=== PATIENT | male | born 1935 | race Caucasian/White ===

== ENCOUNTER → 2017-03-04 | Outpatient (CLI) | payer MEDICARE ==
--- NOTE | 2017-03-04 14:09 | NM ---
EXAMINATION TYPE: NM bone scan whole body DATE OF EXAM: 03/04/2017 COMPARISON: CT lumbar spine February 22, 2017 HISTORY: Lumbar region spondylolisthesis, spinal stenosis, scoliosis, and skin paresthesia all per or svetlana Delayed whole-body scanning was performed following the injection of 25.3 mCi Tc 99m MDP. Images acq uired 3 hours post injection. Whole body images as well as spot images of the lumbar spine in multipl e projections are acquired. FINDINGS: There is horizontal increased uptake at L3 vertebra corresponds to the mild to moderate compression t ype fracture. Osseous structures are diffusely demineralized which makes evaluation for acute fractur e suboptimal on CT. Nuclear medicine findings are suggestive of acute or subacute fracture at this le tramaine. No additional areas of suspicious radiotracer uptake are identified. Normal excretion in bladder is p resent. Lucency from bilateral total knee replacements is noted. IMPRESSION: As above
== END | disposition home or self-care (01) ==
LOC: RADNMMAIN 10:04
PROVIDERS: ATTEND Physical Medicine & Rehabilitation
DX: M80.88XA Other osteoporosis with current pathological fracture, vertebra(e), initial encounter for fracture (principal); M41.26 Other idiopathic scoliosis, lumbar region; R20.2 Paresthesia of skin; Z96.653 Presence of artificial knee joint, bilateral; Z95.5 Presence of coronary angioplasty implant and graft; Z79.01 Long term (current) use of anticoagulants
CPT/HCPCS: 78306; A9503

== ENCOUNTER 2017-04-01 08:49 | Inpatient (IN) | payer MEDICARE ==
[2017-04-01] MEDS ORDERED: SODIUM CHLORIDE 0.9% 1,000 ML IV STA ×2 (09:11→11:21)
--- NOTE | 2017-04-01 09:16 | ED ---
General Adult HPI - General Chief complaint: Fall Stated complaint: Fall Time Seen by Provider: 04/01/17 08:57 Source: patient, family, EMS, RN notes reviewed Mode of arrival: EMS Limitations: no limitations - History of Present Illness Initial comments: Patient is a pleasant 82-year-old male presenting to the emergency department after a fall. Incident occurred around 4 AM when patient got up to use the bathroom. Patient states he lost his balance and fell. Patient denies any injury. Patient denies any head injury or loss of consciousness. Patient states he does have chronic back problems and therefore was unable to get up off of the floor. Patient states he does have back discomfort however this is chronic and unchanged. Patient has been considering back surgery. Patient denies any specific area of weakness. Patient states he feels fine at this time. No dizziness or spinning type sensation. No confusion. No weakness. is present and confirms history. - Related Data Home Medications Medication Instructions Recorded Confirmed Allopurinol [Zyloprim] 300 mg PO DAILY 08/20/13 04/01/17 Cholecalciferol [Vitamin D3] 1,000 unit PO DAILY 08/20/13 04/01/17 Finasteride [Proscar] 5 mg PO DAILY 08/20/13 04/01/17 Gluc HCl/Jt/Mv/Min Aa/Hb 162 1 tab PO BID 08/20/13 04/01/17 [Glucosamine-Chondroitin Caplet] Multivitamin/Iron/Folic Acid 1 tab PO DAILY 08/20/13 04/01/17 [Centrum Complete Multivit Tab] Rosuvastatin Calcium [Crestor] 20 mg PO DAILY 08/20/13 04/01/17 Terazosin [Hytrin] 5 mg PO HS 08/20/13 04/01/17 Apixaban [Eliquis] 2.5 mg PO BID 10/23/13 04/01/17 HYDROcodone/APAP 7.5-325MG [[place] 1 tab PO QID PRN 04/01/17 04/01/17 7.5-325] Metoprolol Tartrate [Lopressor] 12.5 mg PO BID 04/01/17 04/01/17 [place]-3 Fatty Acids/Fish Oil [Fish 1 cap PO DAILY 04/01/17 04/01/17 Oil 1,000 mg Softgel] Vitamin B-1 250mg 250 mg PO DAILY 04/01/17 04/01/17 amLODIPine [Norvasc] 5 mg PO DAILY 04/01/17 04/01/17 cloNIDine HCL [Catapres] 0.1 mg PO BID 04/01/17 04/01/17 traMADol HCL [Ultram] 50 mg PO BID PRN 04/01/17 04/01/17 Allergies Allergy/AdvReac Type Severity Reaction Status Date / Time Sulfa (Sulfonamide Allergy Swelling Verified 10/23/13 08:31 Antibiotics) Review of Systems ROS Statement: Those systems with pertinent positive or pertinent negative responses have been documented in the HPI. ROS Other: All systems not noted in ROS Statement are negative. Constitutional: Denies: fever Eyes: Denies: eye pain ENT: Denies: ear pain Respiratory: Denies: cough Cardiovascular: Denies: chest pain Endocrine: Denies: fatigue Gastrointestinal: Denies: abdominal pain Genitourinary: Denies: dysuria Musculoskeletal: Reports: back pain (Chronic and unchanged) Skin: Denies: rash Neurological: Denies: headache Past Medical History Past Medical History: Hyperlipidemia, Hypertension, Osteoarthritis (OA), Prostate Disorder Additional Past Medical History / Comment(s): varicose veins, hs gout, enlarged prostate History of Any Multi-Drug Resistant Organisms: None Reported Past Surgical History: Heart Catheterization With Stent, Hernia Repair, Joint Replacement Additional Past Surgical History / Comment(s): angioplasty x 4, austen cataracts, detached retina, austen knee replacement and rt hip replacement Past Anesthesia/Blood Transfusion Reactions: Motion Sickness Date of Last Stent Placement:: 2011 Past Psychological History: No Psychological Hx Reported Smoking Status: Former smoker General Exam Limitations: no limitations General appearance: alert, in no apparent distress Head exam: Present: atraumatic Eye exam: Present: normal appearance, PERRL, EOMI. Absent: nystagmus ENT exam: Present: normal oropharynx Neck exam: Present: normal inspection. Absent: tenderness Respiratory exam: Present: normal lung sounds bilaterally Cardiovascular Exam: Present: regular rate, irregular rhythm Expanded Peripheral pulses: 2+: Radial (R), Radial (L), Dorsalis Pedis (R), Dorsalis Pedis (L) GI/Abdominal exam: Present: soft. Absent: tenderness, pulsatile mass Extremities exam: Present: normal inspection, full ROM. Absent: tenderness Back exam: Present: normal inspection. Absent: tenderness, vertebral tenderness Neurological exam: Present: alert, oriented X3, CN II-XII intact. Absent: motor sensory deficit Expanded Speech: Present: fluid speech Cranial nerves: EOM's Intact: Normal Sensory exam: Upper Extremity Light Touch: Normal, Lower Extremity Light Touch: Normal Motor strength exam: RUE: 5, LUE: 5, RLE: 5, LLE: 5 Eye Response: (4) open spontaneously Motor Response: (6) obeys commands Verbal Response: (5) oriented Psychiatric exam: Present: normal affect, normal mood Skin exam: Present: normal color Course Vital Signs 04/01/17 04/01/17 08:51 09:57 Temperature 96.9 F L Pulse Rate 91 85 Respiratory 16 16 Rate Blood Pressure 136/65 161/87 O2 Sat by Pulse 94 L 95 Oximetry - Reevaluation(s) Reevaluation #1: 04/01/17 11:21 Patient reevaluated. Patient and family updated. Case was discussed in detail with practitioner Erica, who will admit for Dr. Glaser, covering for Dr. horvath, who admits for Dr. Sandoval. Case also discussed in detail with cardiology, Dr. Moreno. He agrees no heparin at this time. Case also discussed with practitioner Tomeka with Dr. Tobin. EKG Findings - EKG Comments: EKG Findings:: A. fib with rate of 90. QRS 162. QT 544. QTC 665. Normal axis. LVH. No acute ST change. Medical Decision Making - Lab Data Result diagrams: 04/01/17 09:07 04/01/17 09:07 Lab Results 04/01/17 04/01/17 04/01/17 Range/Units 09:07 09:07 09:07 WBC 14.4 H (3.8-10.6) k/uL RBC 2.76 L (4.30-5.90) m/uL Hgb 9.8 L (13.0-17.5) gm/dL Hct 29.5 L (39.0-53.0) % MCV 107.1 H (80.0-100.0) fL MCH 35.7 H (25.0-35.0) pg MCHC 33.3 (31.0-37.0) g/dL RDW 15.8 H (11.5-15.5) % Plt Count 303 (150-450) k/uL Neutrophils % 89 % Lymphocytes % 5 % Monocytes % 5 % Eosinophils % 0 % Basophils % 0 % Neutrophils # 12.9 H (1.3-7.7) k/uL Lymphocytes # 0.7 L (1.0-4.8) k/uL Monocytes # 0.7 (0-1.0) k/uL Eosinophils # 0.0 (0-0.7) k/uL Basophils # 0.0 (0-0.2) k/uL Poikilocytosis Slight Macrocytosis Moderate PT (9.0-12.0) sec INR (<1.2) APTT (22.0-30.0) sec Sodium 139 (137-145) mmol/L Potassium 2.2 L* (3.5-5.1) mmol/L Chloride 90 L (98-107) mmol/L Carbon Dioxide 30 (22-30) mmol/L Anion Gap 19 mmol/L BUN 36 H (9-20) mg/dL Creatinine 3.00 H (0.66-1.25) mg/dL Est GFR (MDRD) Af Amer 24 (>60 ml/min/1.73 sqM) Est GFR (MDRD) Non-Af 20 (>60 ml/min/1.73 sqM) Glucose 130 H (74-99) mg/dL Calcium 20.3 H* (8.4-10.2) mg/dL Magnesium 1.8 (1.6-2.3) mg/dL Total Bilirubin 0.9 (0.2-1.3) mg/dL AST 143 H (17-59) U/L ALT 20 L (21-72) U/L Alkaline Phosphatase 83 (38-126) U/L Total Creatine Kinase 4399 H (55-170) U/L CK-MB (CK-2) 8.7 H* (0.0-2.4) ng/mL CK-MB (CK-2) Rel Index Troponin I 0.247 H* (0.000-0.034) ng/mL Total Protein 10.7 H (6.3-8.2) g/dL Albumin 4.1 (3.5-5.0) g/dL TSH 0.707 (0.465-4.680) mIU/L Free T4 1.28 (0.78-2.19) ng/dL Free T3 pg/mL 2.8 (2.8-5.3) pg/ml 04/01/17 Range/Units 09:07 WBC (3.8-10.6) k/uL RBC (4.30-5.90) m/uL Hgb (13.0-17.5) gm/dL Hct (39.0-53.0) % MCV (80.0-100.0) fL MCH (25.0-35.0) pg MCHC (31.0-37.0) g/dL RDW (11.5-15.5) % Plt Count (150-450) k/uL Neutrophils % % Lymphocytes % % Monocytes % % Eosinophils % % Basophils % % Neutrophils # (1.3-7.7) k/uL Lymphocytes # (1.0-4.8) k/uL Monocytes # (0-1.0) k/uL Eosinophils # (0-0.7) k/uL Basophils # (0-0.2) k/uL Poikilocytosis Macrocytosis PT 11.5 (9.0-12.0) sec INR 1.2 H (<1.2) APTT >200.0 H* (22.0-30.0) sec Sodium (137-145) mmol/L Potassium (3.5-5.1) mmol/L Chloride (98-107) mmol/L Carbon Dioxide (22-30) mmol/L Anion Gap mmol/L BUN (9-20) mg/dL Creatinine (0.66-1.25) mg/dL Est GFR (MDRD) Af Amer (>60 ml/min/1.73 sqM) Est GFR (MDRD) Non-Af (>60 ml/min/1.73 sqM) Glucose (74-99) mg/dL Calcium (8.4-10.2) mg/dL Magnesium (1.6-2.3) mg/dL Total Bilirubin (0.2-1.3) mg/dL AST (17-59) U/L ALT (21-72) U/L Alkaline Phosphatase (38-126) U/L Total Creatine Kinase (55-170) U/L CK-MB (CK-2) (0.0-2.4) ng/mL CK-MB (CK-2) Rel Index Troponin I (0.000-0.034) ng/mL Total Protein (6.3-8.2) g/dL Albumin (3.5-5.0) g/dL TSH (0.465-4.680) mIU/L Free T4 (0.78-2.19) ng/dL Free T3 pg/mL (2.8-5.3) pg/ml Critical Care Time Critical Care Time: Yes Total Critical Care Time: 36 Disposition Clinical Impression: Hypercalcemia, Hypokalemia Narrative: Prolonged QTC Disposition: ADMITTED IP TO THIS HOSP Condition: Critical Referrals: Elijah Sandoval MD [Primary Care Provider] - 1-2 days Decision Time: 11:23
[2017-04-01 09:31] LABS: Basophils % (A) 0 %; Eosinophils % (A) 0 %; HCT 29.5 % (39.0-53.0); HGB 9.8 gm/dL (13.0-17.5); Lymphocytes # (A) 0.7 k/uL (1.0-4.8); Lymphocytes % (A) 5 %; MCH 35.7 pg (25.0-35.0); MCHC 33.3 g/dL (31.0-37.0); MCV 107.1 fL (80.0-100.0); Macrocytosis Moderate; Mean Platelet Volume 7.3; Monocytes # (A) 0.7 k/uL (0-1.0); Monocytes % (A) 5 %; Neutrophils # (A) 12.9 k/uL (1.3-7.7); Neutrophils % (A) 89 %; Platelet Count 303 k/uL (150-450); Poikilocytosis Slight; RBC 2.76 m/uL (4.30-5.90); RDW 15.8 % (11.5-15.5); WBC 14.4 k/uL (3.8-10.6)
[2017-04-01 09:44] LABS: INR 1.2 (<1.2); Prothrombin Time 11.5 sec (9.0-12.0)
--- NOTE | 2017-04-01 09:55 | XR ---
EXAMINATION TYPE: XR pelvis AP view DATE OF EXAM: 04/01/2017 CLINICAL HISTORY: Pelvic and left hip pain after fall injury. TECHNIQUE: A single AP view of the pelvis is obtained. COMPARISON: None. FINDINGS: Osseous structures are demineralized which is noted to lower radiographic sensitivity. The re is no acute fracture/dislocation clearly evident in the pelvis. The sacroiliac joints are felt wi thin normal limits. Metallic artifact right hip arthroplasty is satisfactorily seated. Advanced degen erative change left hip joint with axial joint space loss and head neck junction mild to moderate spu rring is seen. Left groin vascular calcification is noted. IMPRESSION: There is no acute fracture or dislocation clearly identified in the pelvis.
--- NOTE | 2017-04-01 09:56 | XR ---
EXAMINATION TYPE: XR chest 1V DATE OF EXAM: 04/01/2017 COMPARISON: Chest x-ray April 16, 2011. HISTORY: Pain. From fall TECHNIQUE: Single frontal view of the chest is obtained. FINDINGS: There is chronic parenchymal change without with patchy bibasilar atelectasis and/or infil trate. There is no pleural effusion or pneumothorax seen bilaterally. Diminished inspiration is seen on current study. The cardiac silhouette size is enlarged with atherosclerotic aorta. The osseous structures are demineralized. Old left clavicular fracture is noted. IMPRESSION: Chronic parenchymal change and cardiomegaly with patchy bibasilar atelectasis and/or inf iltrate felt present. Diminished inspiration is noted.
--- NOTE | 2017-04-01 10:01 | CT ---
EXAMINATION TYPE: CT brain wo con DATE OF EXAM: 04/01/2017 COMPARISON: NONE HISTORY: fall, disorientation CT DLP: 1207 mGycm Automated exposure control for dose reduction was used. TECHNIQUE: Standard unenhanced CT brain was obtained. FINDINGS: There is no acute intracranial hemorrhage or midline shift identified. There is diffuse v entricular and sulcal prominence that are proportional. There a few areas of low-attenuation in the p eriventricular white matter most consistent with chronic small vessel ischemic change. The globes ar e intact. Scant left maxillary and ethmoidal mucosal thickening is seen. Remainder the paranasal sinu ses are well aerated. Mastoid air cells and middle air cavities are also well aerated. Atherosclerosi s is seen of the intracranial vasculature. IMPRESSION: 1. No acute intracranial hemorrhage or midline shift. 2. Ventricular prominence likely relates to diffuse age-related cerebral atrophy, however normal pres sure hydrocephalus should also be considered. 3. Nonspecific white matter change most commonly related to sequela of microangiopathy, mild burden.
[2017-04-01 10:02] LABS: Albumin 4.1 g/dL (3.5-5.0); Magnesium 1.8 mg/dL (1.6-2.3); Total Bilirubin 0.9 mg/dL (0.2-1.3); Total Protein 10.7 g/dL (6.3-8.2)
[2017-04-01 10:19] LABS: T4, Free (Free Thyroxine) 1.28 ng/dL (0.78-2.19)
[2017-04-01 10:23] LABS: Calcium 20.3 mg/dL (8.4-10.2); Potassium 2.2 mmol/L (3.5-5.1)
[2017-04-01 10:29] LABS: Partial Thromboplastin Time >200.0 sec (22.0-30.0)
[2017-04-01] MEDS ORDERED: POTASSIUM CHLORIDE ER 20 MEQ TAB.ER PO STA (10:30)
[2017-04-01] MEDS ORDERED: POTASSIUM CHLORIDE 20 MEQ in SODIUM CHLORIDE 0.9% 100 ML IVPB STA ×2 (10:30→11:51)
[2017-04-01 10:38] LABS: Creatine Kinase MB 8.7 ng/mL (0.0-2.4); Troponin I 0.247 ng/mL (0.000-0.034)
[2017-04-01] MEDS ORDERED: SODIUM CHLORIDE 0.9% 500 ML IV STA (11:21)
[2017-04-01] MEDS ORDERED: NALOXONE 0.4 MG/ML 1 ML VIAL IV PRN (11:25)
[2017-04-01 12:06] LABS: Magnesium 1.8 mg/dL (1.6-2.3); Phosphorus 2.6 mg/dL (2.5-4.5); Total Bilirubin 0.9 mg/dL (0.2-1.3); Total Protein 10.5 g/dL (6.3-8.2)
[2017-04-01] MEDS ORDERED: amLODIPine 5 MG TAB PO STA (12:07)
[2017-04-01 12:18] LABS: Calcium 20.8 mg/dL (8.4-10.2); Potassium 2.7 mmol/L (3.5-5.1)
[2017-04-01] MEDS ORDERED: cloNIDine 0.3 MG/24HR PATCH 1 PATCH PATCH TRANSDERM SCH (12:30)
[2017-04-01] MEDS: 0.9% NACL WITH KCL 20 MEQ/L 1,000 ML IV SCH ×3 (13:05→23:01)
--- NOTE | 2017-04-01 13:10 | CONS ---
CONSULTATION Mr. Rodas is an 82-year-old gentleman who is seen for cardiac evaluation. The patient is lethargic and history was obtained from the EMS notes as well as patient's . Patient gives a history that he got up to urinate about 4:00 in the morning and then he became dizzy. On the way back, he fell down on the floor. According to , he did not pass out completely but he was not able to get up by himself. When the EMS arrived, the patient's vital signs were stable. His skin color was pale and was breathing normally. The patient's blood pressure was 146/82 mmHg. This patient has a history of chronic atrial fibrillation, history of coronary artery disease and prior history of stent placement. The patient has been followed by Dr. Celestine Curran. HOME MEDICATIONS: Home medications include Zyloprim, vitamin D3, Proscar, Hytrin 5 mg daily, Crestor 20 mg daily, Eliquis 2.5 mg b.i.d., Lopressor 12.5 mg b.i.d., Norvasc 5 mg daily, Catapres 0.1 mg b.i.d. and Ultram. PAST MEDICAL HISTORY: Past medical history includes history of hypertension, hyperlipidemia, prostate disorder, history of coronary artery disease, chronic atrial fibrillation, joint replacement and hernia repair. PHYSICAL EXAMINATION: Physical examination at present reveals 82-year-old gentleman who is slightly lethargic but is alert and awake, oriented in time, place, and person. The patient's blood pressure is 190/80 mmHg, heart rate is 70 per minute. HEAD/ENT examination is negative. Neck is supple. There is no increase in jugular venous pressure. Both the carotid pulses are felt. There is no bruit. Chest is symmetrical. HEART: The PMI is not felt. First and second heart sounds are normal. Lungs are fairly clear to auscultation and percussion. Abdomen is soft. EXTREMITIES: Radial pulses are 2+. EKG shows evidence of atrial fibrillation with significantly prolonged QT interval. The patient's hemoglobin is 9.8. Potassium is 2.2. Calcium is 20.3, ionized calcium is 10.2. The patient's CPK was 4399 and the initial troponin is 0.247. FINAL IMPRESSION: This patient is admitted with a fall. Currently vital signs are stable. Patient has significant abnormalities in the electrolytes with a potassium being 2.2 and the calcium is 20.2. The overall findings are not suggestive of acute coronary syndrome. Patient at present is in atrial fibrillation with a controlled rate. The patient's CAT scan is negative for any intracranial bleed. The patient is admitted to the ICU. His electrolytes as well as calcium will be corrected. Echo and Doppler study will be obtained. VICKIE / DIA: [id number] /
--- NOTE | 2017-04-01 13:46 | ECHOF ---
Referral Reason:syncope MEASUREMENTS -------- HEIGHT: 175.3 cm WEIGHT: 97.5 kg BP: 182/86 RVIDd: 3.3 cm (< 3.3) IVSd: 1.4 cm (0.6 - 1.1) LVIDd: 4.3 cm (3.9 - 5.3) LVPWd: 1.3 cm (0.6 - 1.1) IVSs: 1.8 cm LVIDs: 3.3 cm LVPWs: 1.4 cm LAESV Index (A-L): 57.92 ml/m Ao Diam: 3.3 cm (2.0 - 3.7) AV Cusp: 1.9 cm (1.5 - 2.6) LA Diam: 4.0 cm (2.7 - 3.8) MV E [place]: 0.76 m/s MV DecT: 189 ms MV A [place]: 0.00 m/s MV E/A Ratio: 777.57 RAP: 5.00 mmHg RVSP: 21.05 mmHg FINDINGS -------- Atrial fibrillation. This was a technically good study. The left ventricular size is normal. There is moderate concentric left ventricular hypertrophy. O verall left ventricular systolic function is normal with, an EF between 55 - 60 %. The right ventricle is mildly enlarged. LA is severely dilated >40 ml/m2 RA appears enlarged. Aortic valve is trileaflet and is mildly thickened. There is no evidence of aortic regurgitation. There is no evidence of aortic stenosis. The mitral valve leaflets are mildly thickened. Moderate mitral regurgitation is present. Trace tricuspid regurgitation present. Right ventricular systolic pressure is normal at < 35 mmHg. There is no evidence of pulmonary hypertension. Trace/mild (physiologic) pulmonic regurgitation. The aortic root size is normal. Normal inferior vena cava with normal inspiratory collapse consistent with estimated right atrial pre ssure of 5 mmHg. The pericardium is normal. There is no pericardial effusion. CONCLUSIONS -------- 1. Atrial fibrillation. 2. This was a technically good study. 3. The left ventricular size is normal. 4. There is moderate concentric left ventricular hypertrophy. 5. Overall left ventricular systolic function is normal with, an EF between 55 - 60 %. 6. The right ventricle is mildly enlarged. 7. LA is severely dilated >40 ml/m2 8. RA appears enlarged. 9. Aortic valve is trileaflet and is mildly thickened. 10. The mitral valve leaflets are mildly thickened. 11. Moderate mitral regurgitation is present. 12. Trace tricuspid regurgitation present. 13. Right ventricular systolic pressure is normal at < 35 mmHg. 14. There is no evidence of pulmonary hypertension. 15. Trace/mild (physiologic) pulmonic regurgitation. 16. The aortic root size is normal. 17. There is no pericardial effusion. [employer]: Tristan Ramires RDCS
[2017-04-01 13:53] LABS: Glucose,Whole Blood 125 mg/dL (75-99)
[2017-04-01 14:54] LABS: Amorphous Sediment,Urine Occasional /hpf; Appearance,Urine Clear (Clear); Bacteria,Urine Rare /hpf; Bilirubin,Urine Negative (Negative); Blood,Urine Moderate (Negative); Color,Urine Yellow; Glucose,Urine (UA) Negative (Negative); Hyaline Casts,Urine 4 /lpf (0-2); Ketones,Urine Negative (Negative); Leukocyte Esterase,Urine Trace (Negative); Nitrite,Urine Negative (Negative); PH, Urine 5.5 (5.0-8.0); Protein,Urine Trace (Negative); RBC,Urine 3 /hpf (0-5); Specific Gravity,Urine 1.008 (1.001-1.035); Urobilinogen,Urine <2.0 mg/dL (<2.0); WBC,Urine 8 /hpf (0-5)
[2017-04-01 15:44] LABS: Anisocytosis Slight; Basophils % (A) 0 %; Eosinophils % (A) 0 %; HCT 30.5 % (39.0-53.0); HGB 10.3 gm/dL (13.0-17.5); Lymphocytes # (A) 0.8 k/uL (1.0-4.8); Lymphocytes % (A) 7 %; MCH 36.2 pg (25.0-35.0); MCHC 33.6 g/dL (31.0-37.0); MCV 107.5 fL (80.0-100.0); Macrocytosis Marked; Mean Platelet Volume 7.5; Monocytes # (A) 0.5 k/uL (0-1.0); Monocytes % (A) 5 %; Neutrophils # (A) 9.8 k/uL (1.3-7.7); Neutrophils % (A) 87 %; Platelet Count 282 k/uL (150-450); Poikilocytosis Slight; RBC 2.84 m/uL (4.30-5.90); RDW 16.6 % (11.5-15.5); WBC 11.3 k/uL (3.8-10.6)
[2017-04-01 15:46] LABS: INR 1.3 (<1.2); Prothrombin Time 11.9 sec (9.0-12.0)
[2017-04-01 15:52] LABS: Partial Thromboplastin Time 22.9 sec (22.0-30.0)
[2017-04-01] MEDS ORDERED: SODIUM CHLORIDE 0.9% 250 ML with PAMIDRONATE 60 MG IV ONE ×2 (16:00)
[2017-04-01] MEDS: hydrALAZINE HCL 20 MG/ML 1 ML VIAL IVP PRN ×2 (16:03→19:23)
[2017-04-01] MEDS: POTASSIUM CHLORIDE 20 MEQ in SODIUM CHLORIDE 0.9% 100 ML IVPB SCH ×4 (16:44→23:02)
--- NOTE | 2017-04-01 17:21 | P.CNPUL ---
History of Present Illness Consult date: 04/01/17 Chief complaint: Weakness and fall History of present illness: This is a 82-year-old male patient with known history of coronary artery disease with previous PCI, chronic atrial fibrillation, hypertension and hyperlipidemia, and osteoarthritis, who came into the emergency department very lethargic and weak. Apparently the patient was becoming progressively more weak and dizzy and he had a fall that occurred around 4 AM when the patient was trying to go to the bathroom. Patient states that he lost balance and he fell. He denies having any significant injuries. No head injury. He stated that he has chronic back pain and the back and has essentially been unchanged. The patient was brought into the hospital and he was seen and burst department he was found to have significant abnormalities in his blood work and electrolytes. Specifically the patient was found to be anemic with a hemoglobin of 9.8, the patient was found to have a PTT of 200 knowing that he is on oral anticoagulation with Eliquis, he was found to be hypokalemic with a potassium level of 2.2, he was an acute kidney injury with a creatinine of 3.0, his serum calcium level was 20.3 with an ionized calcium of 10.2 and a phosphorus level of 2.6 and a magnesium 1.8 and an alkaline phosphatase of 84 with a CPK of 4399 and troponin was 0.247. The patient's total serum protein was 10.4 and albumin was 4.0. Note that the patient was being investigated for back pain and had undergone a CAT scan of the lumbosacral spine on 02/22/2017 and he was found to have multi leveled compressive deformities including the greatest at the level of L3 with approximately 50% loss of the mid vertebral body height. There was also compression at the level of L4 and endplates of L2 and superior endplates of L1 and also poses was also present and possibility of underlying lytic lesions were also included and suspected. There is also evidence of spinal canal stenosis at the level of L4-L5. A bone scan that was done on 03/04/2017 showed demineralization that was diffuse without any evidence of an acute or subacute fractures. The [facility] also [facility]. He was given [place] for pain control which made him more confused and lethargic. At this point in time he is on IV fluids. He is receiving 200 mL an hour of normal saline along with potassium replacement. The patient is also on alendronate 60 mg IV. Past Medical History Past Medical History: Atrial Fibrillation, Coronary Artery Disease (CAD), Hyperlipidemia, Hypertension, Osteoarthritis (OA), Prostate Disorder, Vascular Disorder Additional Past Medical History / Comment(s): Chronic low back pain, lumbar vertebrae fracture, recent pain medication change and pt/spouse states he has had increased weakness and decreased appetite since, arthritis mostly in his back, BPH, bilateral leg varicosities, gout, diverticular dx, colon benign polyp , hemorrhoids. History of Any Multi-Drug Resistant Organisms: None Reported Past Surgical History: Heart Catheterization With Stent, Hernia Repair, Joint Replacement Additional Past Surgical History / Comment(s): 1982 PTCA, 2003/2009/2011 PCIs with stents, 2013 cardioversion, [place] cataracts with lens implants, R eye surgery for detached retina, [place] knee replacement and rt hip replacement, R inguinal hernia repair, colonoscopies/benign polypectomy. Past Anesthesia/Blood Transfusion Reactions: Motion Sickness Additional Past Anesthesia/Blood Transfusion Reaction / Comment(s): Pt states he has had blood in past without reaction. Date of Last Stent Placement:: 2011 Smoking Status: Former smoker - Past Family History Father Family Medical History: Myocardial Infarction (PA) Additional Family Medical History / Comment(s): Father of a PA at the age of 72 yrs. Mother Family Medical History: No Reported History Additional Family Medical History / Comment(s): Mother lived to be 84 yrs old. Medications and Allergies Home Medications Medication Instructions Recorded Confirmed Type Allopurinol [Zyloprim] 300 mg PO DAILY 08/20/13 04/01/17 History Cholecalciferol [Vitamin D3] 1,000 unit PO DAILY 08/20/13 04/01/17 History Finasteride [Proscar] 5 mg PO DAILY 08/20/13 04/01/17 History Gluc HCl/Jt/Mv/Min Aa/Hb 162 1 tab PO BID 08/20/13 04/01/17 History [Glucosamine-Chondroitin Caplet] Multivitamin/Iron/Folic Acid 1 tab PO DAILY 08/20/13 04/01/17 History [Centrum Complete Multivit Tab] Rosuvastatin Calcium [Crestor] 20 mg PO DAILY 08/20/13 04/01/17 History Terazosin [Hytrin] 5 mg PO HS 08/20/13 04/01/17 History Apixaban [Eliquis] 2.5 mg PO BID 10/23/13 04/01/17 History HYDROcodone/APAP 7.5-325MG [[place] 1 tab PO QID PRN 04/01/17 04/01/17 History 7.5-325] Metoprolol Tartrate [Lopressor] 12.5 mg PO BID 04/01/17 04/01/17 History Rembrandt-3 Fatty Acids/Fish Oil [Fish 1 cap PO DAILY 04/01/17 04/01/17 History Oil 1,000 mg Softgel] Vitamin B-1 250mg 250 mg PO DAILY 04/01/17 04/01/17 History amLODIPine [Norvasc] 5 mg PO DAILY 04/01/17 04/01/17 History cloNIDine HCL [Catapres] 0.1 mg PO BID 04/01/17 04/01/17 History traMADol HCL [Ultram] 50 mg PO BID PRN 04/01/17 04/01/17 History Allergies Allergy/AdvReac Type Severity Reaction Status Date / Time Sulfa (Sulfonamide Allergy Swelling Verified 10/23/13 08:31 Antibiotics) Physical Exam Vitals: Vital Signs Temp Pulse Resp BP Pulse Ox 04/01/17 15:35 97 04/01/17 15:30 94 191/88 96 04/01/17 15:00 93 193/96 95 04/01/17 14:30 90 172/84 96 04/01/17 14:00 97.6 F 92 183/94 94 L 04/01/17 13:52 98 94 L 04/01/17 13:34 92 16 204/95 95 04/01/17 13:00 96 16 182/86 95 04/01/17 11:00 85 16 178/93 94 L 04/01/17 09:57 85 16 161/87 95 04/01/17 08:51 96.9 F L 91 16 136/65 94 L Intake and Output 04/01/17 04/01/17 04/01/17 06:59 14:59 22:59 Intake Total 120 Output Total 250 Balance -130 Intake: Intake, IV Titration 120 Amount Potassium Chloride 20 meq 120 In Sodium Chloride 0.9% 100 ml @ 50 mls/hr IVPB ONCE STA Rx#:[id number] Output: Urine 250 Other: Weight 97.522 kg Patient Weight 04/02/17 06:59 Weight 97.522 kg Patient is lethargic and confused resting comfortably in bed. He cannot answer simple questions. He moans. He seems to be in moderate degree of pain. Head is atraumatic normocephalic.Head exam was generally normal. There was no scleral icterus or corneal arcus. Mucous membranes were moist.Neck was supple and without jugular venous distension, thyromegaly, or carotid bruits. Carotids were easily palpable bilaterally. There was no adenopathy. Mucous membranes are dry. Lung sounds are diminished bilaterally otherwise they're clear. There is no wheezes overall currently crackles.Cardiac exam revealed the PMI to be normally situated and sized. The rhythm was regular and no extrasystoles were noted during several minutes of auscultation. The first and second heart sounds were normal and physiologic splitting of the second heart sound was noted. There were no murmurs, rubs, clicks, or gallops.Abdominal exam revealed normal bowel sounds. The abdomen was soft, non-tender, and without masses, organomegaly, or appreciable enlargement of the abdominal aorta.Examination of the extremities revealed easily palpable radial, femoral and pedal pulses. There was no cyanosis, clubbing or edema.Examination of the skin revealed no evidence of significant rashes, suspicious appearing nevi or other concerning lesions. Neurologically the patient is confused and he has diminished level of consciousness. He withdraws to painful stimuli. Cranial nerves are intact. Results - Laboratory Findings CBC and BMP: 04/01/17 15:22 04/01/17 11:23 PT/INR, D-dimer PT 11.5 sec (9.0-12.0) 04/01/17 09:07 INR 1.2 (<1.2) H 04/01/17 09:07 Abnormal lab findings: Abnormal Labs 04/01/17 04/01/17 04/01/17 09:07 09:07 09:07 WBC 14.4 H RBC 2.76 L Hgb 9.8 L Hct 29.5 L MCV 107.1 H MCH 35.7 H RDW 15.8 H Neutrophils # 12.9 H Lymphocytes # 0.7 L INR APTT Potassium 2.2 L* Chloride 90 L Carbon Dioxide BUN 36 H Creatinine 3.00 H Glucose 130 H POC Glucose (mg/dL) Calcium 20.3 H* Ionized Calcium Elinor AST 143 H ALT 20 L Total Creatine Kinase 4399 H CK-MB (CK-2) 8.7 H* Troponin I 0.247 H* Total Protein 10.7 H Urine Protein Urine Blood Ur Leukocyte Esterase Urine WBC Amorphous Sediment Urine Bacteria Hyaline Casts 04/01/17 04/01/17 04/01/17 09:07 11:23 11:23 WBC RBC Hgb Hct MCV MCH RDW Neutrophils # Lymphocytes # INR 1.2 H APTT >200.0 H* Potassium 2.7 L* Chloride 92 L Carbon Dioxide 32 H BUN 37 H Creatinine 2.81 H Glucose 126 H POC Glucose (mg/dL) Calcium 20.8 H* Ionized Calcium Elinor 10.2 H* AST 153 H ALT Total Creatine Kinase CK-MB (CK-2) Troponin I Total Protein 10.5 H Urine Protein Urine Blood Ur Leukocyte Esterase Urine WBC Amorphous Sediment Urine Bacteria Hyaline Casts 04/01/17 04/01/17 04/01/17 13:52 14:30 15:22 WBC 11.3 H RBC 2.84 L Hgb 10.3 L Hct 30.5 L MCV 107.5 H MCH 36.2 H RDW 16.6 H Neutrophils # 9.8 H Lymphocytes # 0.8 L INR APTT Potassium Chloride Carbon Dioxide BUN Creatinine Glucose POC Glucose (mg/dL) 125 H Calcium Ionized Calcium Elinor AST ALT Total Creatine Kinase CK-MB (CK-2) Troponin I Total Protein Urine Protein Trace H Urine Blood Moderate H Ur Leukocyte Esterase Trace H Urine WBC 8 H Amorphous Sediment Occasional H Urine Bacteria Rare H Hyaline Casts 4 H - Diagnostic Findings Chest x-ray: image reviewed Assessment and Plan Plan: Assessment 1 acute hypercalcemia with a clinical presentation which is very highly suspicious for multiple myeloma. The patient presents in with hyperproteinemia , acute hypercalcemia, acute kidney failure, compression fracture of the lumbar spine at the level of L3-L4 5 and possibility of some lytic lesions involving the spine. The patient is currently being resuscitated IV fluids and the patient is receiving alendronate. 2 change in mental status secondary to above. The patient presented with severe dehydration and severe electrode disturbance with hypercalcemia and hypokalemia and addition to a mild component of rhabdomyolysis 3 generalized weakness and fall secondary to above 4 acute rhabdomyolysis secondary to above 5 acute hypokalemia 6 compression fracture of the lumbar spine at the level of L3-L4 and L5 along with possibility of lytic lesions and the patient has extensive demineralization of the bones and lumbar spine 7 chronic back pain 8 coronary artery disease 9 chronic atrial fibrillation 10 acute coagulopathy probably related to varicose toxicity. The patient does not have any signs of bleeding 11 acute kidney injury/kidney failure. Rule out myeloma kidney. Rule out prerenal factors secondary to dehydration 12 BPH 13 diverticular disease with benign colonic polyps and hemorrhoids Plan Fluid resuscitation. Continue normal saline at rate of 200 mL an hour. Replace potassium levels. Monitor magnesium levels. Agree with alendronate. Monitor calcium levels and anticipate the levels will improve with fluid resuscitation and alendronate. Meanwhile, we'll send serum protein electrophoresis and immuno pheresis. We'll send urine protein electrophoresis. We'll need an ultrasound the kidneys. May need a skeletal series. Monitor coagulation profile. Monitor mental status which I anticipate to improve with fluid resuscitation and correction of the electrode disturbance. Monitor CPK. He'll be monitored in the intensive care unit. We'll need a hematology oncology consultation. Will need a nephrology consultation. We'll continue to follow.
[2017-04-01] MEDS ORDERED: HYDROcodone/APAP 7.5-325MG 1 EACH TAB PO PRN (18:10)
[2017-04-01] MEDS: traMADol 50 MG TAB PO PRN (18:58)
[2017-04-01 19:55] LABS: Potassium 3.1 mmol/L (3.5-5.1)
--- NOTE | 2017-04-01 20:00 | XR ---
EXAMINATION TYPE: XR bone survey complete, 15 views DATE OF EXAM: 04/01/2017 COMPARISON: Nuclear medicine bone scan 03/04/1970 HISTORY: Assess for multiple myeloma. DESCRIPTION: Imaging was obtained from the vertex of the skull through the level of the elbows and kn ees. There are no focal osteolytic lesions. There are, however, markedly advanced degenerative spine changes at all levels and there is generalized osteopenia diffusely throughout the skeletal system. No acute fracture or malalignment. The L3 vertebral body is mildly compressed compared to the L2 and L4 vertebral bodies, and this corre sponds with the scintigraphic finding at the time of the nuclear medicine bone scan of March 04. IMPRESSION: 1. Generalized osteopenia. 2. Marked degenerative spine changes at all levels. 3. Mild L3 vertebral body compression.
[2017-04-01 20:04] LABS: Calcium 19.2 mg/dL (8.4-10.2)
[2017-04-01] MEDS ORDERED: CALCITONIN INJ 200 UNIT/ML (MDV) VIAL IM ONE (20:30)
[2017-04-01] MEDS: DOXAZOSIN 4 MG TAB PO SCH (20:44)
[2017-04-01] MEDS: METOPROLOL TARTRATE 12.5 MG TAB PO SCH (20:45)
[2017-04-01] MEDS: cloNIDine HCL 0.1 MG TAB PO SCH (20:45)
--- NOTE | 2017-04-01 20:56 | US ---
EXAMINATION TYPE: US kidneys/renal and bladder DATE OF EXAM: 04/01/2017 COMPARISON: NONE CLINICAL HISTORY: PABLO. PABLO, exam done portable in ICU. EXAM MEASUREMENTS: Right Kidney: 14.0 x 6.8 x 5.8 cm Left Kidney: 13.2 x 6.5 x 5.1 cm Right Kidney: slightly lobulated contour, 1.4cm cystic area mid pole, smaller 1.2cm area inferior urmila e and 1.2cm area superior pole Left Kidney: lobulated contour, 2.0 x 2.6 x 2.1cm cystic area mid pole, 1.8 x 2.5 x 1.8cm complex are a inferior pole Bladder: limited visualization, butcher catheter Bilateral Jets seen: no There is no evidence for hydronephrosis. No nephrolithiasis is seen. No masses are identified. The urinary bladder is anechoic. Bilateral ureteral jets are seen. IMPRESSION: No acute process.
--- NOTE | 2017-04-01 21:55 | HP ---
HISTORY AND PHYSICAL DATE OF SERVICE: 04/01/2017 CHIEF COMPLAINT: Fall. HISTORY OF PRESENT ILLNESS: This 82-year-old gentleman with a past medical history of multiple medical problems, including history of atrial fibrillation, CAD, hypertension, hyperlipidemia, DJD , CAD with stent being followed by Dr. Sandoval in the outpatient setting, apparently had a fall in the bathroom at 4:00. The patient did not have any injury. The patient lost his balance and patient was taken to [facility] and admitted for further evaluation and treatment. The patient is confused. Patient had multiple laboratory abnormalities, including severe renal failure with a creatinine of 2.81 and severe hypercalcemia at 20.8. The creatine kinase was 4399. Potassium is 2.7. Patient was admitted for further evaluation and treatment. There is no history of fever, rigors, chills. No history of any headache. No history of any hematochezia or melena at this time. PAST MEDICAL HISTORY: History of atrial fibrillation, CAD, hypertension, hyperlipidemia, DJD, history of chronic back pain, CAD with stent. MEDICATIONS PRIOR TO ADMISSION: Include home medications are: 1. Ultram 50 mg b.i.d. p.r.n. 2. Norvasc 5 mg p.o. daily. 3. Catapres 0.1 p.o. b.i.d. 4. Vitamin B1 250 mg p.o. daily. 5. Eliquis 2.5 mg b.i.d. 6. Multivitamins 1 p.o. daily. 7. Fish oil 1 p.o. daily. 8. [place] 7.5 mg q.i.d. p.r.n. 9. Glucosamine chondroitin 1 tablet b.i.d. 10.Vitamin D3 1000 daily. 11.Hytrin 5 mg q.h.s. 12.Crestor 20 mg daily. 13.Lopressor 12.5 mg b.i.d. 14.Proscar 5 mg daily. 15.Zyloprim 10 mg p.o. daily. ALLERGIES: SULFA. FAMILY HISTORY: History of myocardial infarction in the family. SOCIAL HISTORY: Previous history of smoking. No history of alcohol intake. REVIEW OF SYSTEMS: Could not be taken from the patient because of the change in mental status. PHYSICAL EXAM: Pulse is 92, blood pressure 193/84, respirations 20, temperature 97.6, pulse ox 94% on 2L. HEENT: Conjunctivae normal. Oral mucosa is dry. NECK: No jugular venous distention. No carotid bruits. No lymph node enlargement. CARDIOVASCULAR: S1, S2 muffled. No S3. No S4. RESPIRATORY: Breath sounds diminished in the bases. A few scattered rhonchi. No crackles. ABDOMEN: Soft, nontender. No mass palpable. LEGS: No edema. No swelling. NERVOUS SYSTEM: Diffusely weak. LAB: Investigations are WBC 11, hemoglobin is 10.3. Sodium 120, potassium 2.7, creatinine 2.81, glucose 126. Calcium is 20.8. INR is 10.2. Phosphorus is 2.6. The alk phos is 84. Creatine kinase is 4399 and CK-MB is 8.7. UA noted. ASSESSMENT: 1. History of fall and dehydration. 2. Acute renal failure, possibly prerenal renal failure secondary to acute tubular necrosis and hypovolemia. 3. Hypercalcemia for evaluation, rule out metastatic malignancy of multiple myeloma. 4. Hypokalemia, severe. 5. Change in mental status, metabolic encephalopathy. 6. Increased WBC. 8. Atrial fibrillation. 9. Coronary artery disease. 10.Hypertension. 11.Hyperlipidemia. 12.Degenerative joint disease. 14.History of back pain. 15.Gait dysfunction. 16.History of coronary artery disease with stent. 17.Remote history of nicotine dependence. 18.History of alcohol. RECOMMENDATIONS AND DISCUSSION: In this 82-year-old gentleman who presented with multiple complex medical issues , will monitor the patient closely. Continue the current medical management, continue symptomatic treatment. Otherwise at this time, the patient definitely has significant renal failure. Will initiate hydration, potassium supplementation. I would also monitor creatinine closely, nephrology evaluation. Severe hypercalcemia is noted which could be multifactorial. Exact etiology is unknown at this time, but the possible of multiple myeloma needs to be ruled out by Dr. Tobin. Otherwise, we will monitor the patient closely in ICU. Repeat labs are ordered. Prognosis extremely guarded because of multiple complex medical issues. Avoid nephrotoxic medications and diuretics at this time. Continue to monitor. Further recommendations to follow. See orders for further details. A copy of this dictation will be forwarded to Dr. Sandoval, who is the primary physician. I would also recommend a urine drug screen. MMODL / IJN: [id number] / BARBARA
[2017-04-02] MEDS: hydrALAZINE HCL 20 MG/ML 1 ML VIAL IVP PRN ×4 (00:10→15:37)
[2017-04-02 01:35] LABS: Protein, Total 9.9 g/dL (6.2-8.2)
[2017-04-02] MEDS: 0.9% NACL WITH KCL 20 MEQ/L 1,000 ML IV SCH ×4 (03:00→19:06)
[2017-04-02 03:48] LABS: Anisocytosis Slight; Basophils % (A) 0 %; Eosinophils % (A) 0 %; HCT 32.2 % (39.0-53.0); HGB 10.4 gm/dL (13.0-17.5); Lymphocytes # (A) 0.6 k/uL (1.0-4.8); Lymphocytes % (A) 4 %; MCHC 32.4 g/dL (31.0-37.0); MCV 107.8 fL (80.0-100.0); Macrocytosis Marked; Mean Platelet Volume 7.6; Monocytes # (A) 0.6 k/uL (0-1.0); Monocytes % (A) 5 %; Neutrophils # (A) 11.7 k/uL (1.3-7.7); Neutrophils % (A) 90 %; Platelet Count 282 k/uL (150-450); Poikilocytosis Slight; RBC 2.99 m/uL (4.30-5.90); RDW 17.1 % (11.5-15.5); WBC 12.9 k/uL (3.8-10.6)
[2017-04-02 04:13] LABS: Magnesium 1.6 mg/dL (1.6-2.3); Phosphorus 2.4 mg/dL (2.5-4.5)
[2017-04-02 04:16] LABS: Ionized Calcium 9.6 mg/dL (4.5-5.3)
[2017-04-02 04:20] LABS: Potassium 3.1 mmol/L (3.5-5.1)
[2017-04-02 04:23] LABS: Calcium 18.4 mg/dL (8.4-10.2)
[2017-04-02] MEDS ORDERED: MAGNESIUM SULFATE-D5W PMX 1 GM in DEXTROSE/WATER 1 100ML.BAG IVPB ONE (06:00)
[2017-04-02] MEDS: POTASSIUM CHLORIDE 20 MEQ in SODIUM CHLORIDE 0.9% 100 ML IVPB SCH ×4 (06:07→13:03)
[2017-04-02] MEDS: amLODIPine 5 MG TAB PO SCH (08:03)
[2017-04-02] MEDS: METOPROLOL TARTRATE 12.5 MG TAB PO SCH ×2 (08:06→21:20)
[2017-04-02] MEDS: cloNIDine HCL 0.1 MG TAB PO SCH ×2 (08:06→21:20)
[2017-04-02] MEDS: FINASTERIDE 5 MG TAB PO SCH (08:06)
[2017-04-02] MEDS: PANTOPRAZOLE 40 MG/10 ML VIAL IV SCH (08:06)
[2017-04-02] MEDS ORDERED: CALCITONIN INJ 200 UNIT/ML (MDV) VIAL IM ONE (09:00)
[2017-04-02] MEDS ORDERED: BISACODYL 10 MG SUPP RECTAL PRN (11:11)
--- NOTE | 2017-04-02 11:11 | P.NPCON ---
History of Present Illness - Reason for Consult acute renal failure - History of Present Illness Reason for consultation: Acute kidney injury and hypercalcemia History of present illness: Patient is a 82-year-old male seen in renal consultation for acute kidney injury and hypercalcemia. His creatinine in October 2013 was 0.85. No other records are available up until this admission. Creatinine this admission was 2.8 and is relatively stable today. He is nonoliguric. His calcium level was noted to be elevated at 20.8 on admission. Ionized calcium was elevated at 10.2. Patient is currently maintained on normal saline at 200 mL an hour and is nonoliguric. His urine output has been 100-150 mL an hour. Patient also received a dose of calcitonin yesterday and again this morning. Calcium level this morning is 18.4. Patient is quite lethargic. Hemodynamically stable. No vomiting or diarrhea. Oral intake is poor. Patient presented to the hospital after sustaining a fall while coming out of the bathroom. His CK level was also elevated at 4399 on admission. According to the he did not hit his head. He is known to have chronic back pain for which she follows with orthopedic surgery as an outpatient and has been wearing a brace. According to the he does not take any calcium supplementation at home. Also no history of NSAID use. No prior history of kidney disease. Vital signs are stable. General: The patient appeared well nourished and normally developed. HEENT: Head exam is unremarkable. Neck is without jugular venous distension. LUNGS: Lungs are clear to auscultation and percussion. Breath sounds decreased. HEART: Rate and Rhythm are regular. First and second heart sounds normal. No murmurs, rubs or gallops. ABDOMEN: Abdominal exam reveals normal bowel sounds. Non-tender and non- distended. No evidence of peritonitis. EXTREMITITES: No clubbing, cyanosis, or edema. Past Medical History Past Medical History: Atrial Fibrillation, Coronary Artery Disease (CAD), Hyperlipidemia, Hypertension, Osteoarthritis (OA), Prostate Disorder, Vascular Disorder Additional Past Medical History / Comment(s): Chronic low back pain, lumbar vertebrae fracture, recent pain medication change and pt/spouse states he has had increased weakness and decreased appetite since, arthritis mostly in his back, BPH, bilateral leg varicosities, gout, diverticular dx, colon benign polyp , hemorrhoids. History of Any Multi-Drug Resistant Organisms: None Reported Past Surgical History: Heart Catheterization With Stent, Hernia Repair, Joint Replacement Additional Past Surgical History / Comment(s): 1983 PTCA, 2003/2009/2011 PCIs with stents, 2014 cardioversion, [place] cataracts with lens implants, R eye surgery for detached retina, [place] knee replacement and rt hip replacement, R inguinal hernia repair, colonoscopies/benign polypectomy. Past Anesthesia/Blood Transfusion Reactions: Motion Sickness Additional Past Anesthesia/Blood Transfusion Reaction / Comment(s): Pt states he has had blood in past without reaction. Date of Last Stent Placement:: 2011 Smoking Status: Former smoker - Past Family History Father Family Medical History: Myocardial Infarction ([place]) Additional Family Medical History / Comment(s): Father of a [place] at the age of 72 yrs. Mother Family Medical History: No Reported History Additional Family Medical History / Comment(s): Mother lived to be 84 yrs old. Medications and Allergies Home Medications Medication Instructions Recorded Confirmed Type Allopurinol [Zyloprim] 300 mg PO DAILY 08/20/13 04/01/17 History Cholecalciferol [Vitamin D3] 1,000 unit PO DAILY 08/20/13 04/01/17 History Finasteride [Proscar] 5 mg PO DAILY 08/20/13 04/01/17 History Gluc HCl/Jt/Mv/Min Aa/Hb 162 1 tab PO BID 08/20/13 04/01/17 History [Glucosamine-Chondroitin Caplet] Multivitamin/Iron/Folic Acid 1 tab PO DAILY 08/20/13 04/01/17 History [Centrum Complete Multivit Tab] Rosuvastatin Calcium [Crestor] 20 mg PO DAILY 08/20/13 04/01/17 History Terazosin [Hytrin] 5 mg PO HS 08/20/13 04/01/17 History Apixaban [Eliquis] 2.5 mg PO BID 10/23/13 04/01/17 History HYDROcodone/APAP 7.5-325MG [[place] 1 tab PO QID PRN 04/01/17 04/01/17 History 7.5-325] Metoprolol Tartrate [Lopressor] 12.5 mg PO BID 04/01/17 04/01/17 History [place]-3 Fatty Acids/Fish Oil [Fish 1 cap PO DAILY 04/01/17 04/01/17 History Oil 1,000 mg Softgel] Vitamin B-1 250mg 250 mg PO DAILY 04/01/17 04/01/17 History amLODIPine [Norvasc] 5 mg PO DAILY 04/01/17 04/01/17 History cloNIDine HCL [Catapres] 0.1 mg PO BID 04/01/17 04/01/17 History traMADol HCL [Ultram] 50 mg PO BID PRN 04/01/17 04/01/17 History Allergies Allergy/AdvReac Type Severity Reaction Status Date / Time Sulfa (Sulfonamide Allergy Swelling Verified 10/23/13 08:31 Antibiotics) Physical Exam Vitals: Vital Signs Temp Pulse Resp BP Pulse Ox 04/02/17 10:00 100 157/78 97 04/02/17 09:30 96 162/85 98 04/02/17 09:04 97 04/02/17 09:00 100 136/80 97 04/02/17 08:30 119 H 144/82 97 04/02/17 08:00 98.0 F 109 H 169/81 97 04/02/17 07:30 122 H 157/76 97 04/02/17 07:00 117 H 157/72 96 04/02/17 06:30 103 H 154/78 96 04/02/17 06:00 120 H 148/81 97 04/02/17 05:30 130 H 142/77 96 04/02/17 05:00 111 H 183/111 75 L 04/02/17 04:30 113 H 182/123 95 04/02/17 04:00 147 H 16 163/88 97 04/02/17 03:30 120 H 159/99 98 04/02/17 03:00 107 H 113/78 97 04/02/17 02:30 92 179/104 96 04/02/17 02:00 132 H 157/90 96 04/02/17 01:30 122 H 151/99 96 04/02/17 01:00 136 H 145/98 97 04/02/17 00:30 97.8 F 128 H 182/90 95 04/02/17 00:00 128 H 16 194/101 04/01/17 23:30 115 H 176/93 97 04/01/17 23:05 114 H 195/86 97 04/01/17 23:00 109 H 166/91 96 04/01/17 22:30 126 H 176/89 97 01/26/18 22:00 119 H 141/97 98 04/01/17 21:30 128 H 170/91 96 04/01/17 21:00 50 L 180/100 98 04/01/17 20:30 103 H 193/93 97 04/01/17 20:00 98.1 F 103 H 16 96 04/01/17 19:30 119 H 195/118 97 04/01/17 19:00 117 H 195/87 96 04/01/17 18:30 120 H 177/87 04/01/17 18:00 123 H 177/87 04/01/17 17:30 99 177/87 97 04/01/17 17:00 120 H 189/86 97 04/01/17 16:30 86 189/86 04/01/17 16:00 88 200/99 04/01/17 15:35 97 04/01/17 15:30 94 191/88 96 04/01/17 15:00 93 193/96 95 04/01/17 14:30 90 172/84 96 04/01/17 14:00 97.6 F 92 183/94 94 L 04/01/17 13:52 98 94 L 04/01/17 13:34 92 16 204/95 95 04/01/17 13:00 96 16 182/86 95 Intake and Output 04/01/17 04/02/17 04/02/17 22:59 06:59 14:59 Intake Total 1470 1850 650 Output Total 1535 2075 565 Balance -65 -225 85 Intake: Intake, IV Titration 1470 1850 650 Amount 0.9% NaCl with KCl 20 Meq 1200 1600 200 /l 1,000 ml @ 200 mls/hr IV .Q5H [facility] Rx#:[id number] Magnesium Sulfate-D5w Pmx 100 1 gm In Dextrose/Water 1 100ml.bag @ 100 mls/hr IVPB ONCE ONE Rx#: [id number] Potassium Chloride 20 meq 120 In Sodium Chloride 0.9% 100 ml @ 50 mls/hr IVPB ONCE STA Rx#:[id number] Potassium Chloride 20 meq 50 450 In Sodium Chloride 0.9% 100 ml @ 50 mls/hr IVPB Q2HR [facility] Rx#:[id number] Potassium Chloride 20 meq 150 100 In Sodium Chloride 0.9% 100 ml @ 55 mls/hr IVPB Q2H [facility] Rx#:[id number] Output: Urine 7689 0429 305 Other: Voiding Method Indwelling Catheter Indwelling Catheter Bedpan # Elhameses 1 Weight 91 kg Results - Lab Results Most recent lab results Calcium 18.4 mg/dL (8.4-10.2) H* 04/02/17 03:33 Phosphorus 2.4 mg/dL (2.5-4.5) L 04/02/17 03:33 Magnesium 1.6 mg/dL (1.6-2.3) 04/02/17 03:33 04/02/17 03:33 04/02/17 03:33 Assessment and Plan Plan: Assessment: #1. Nonoliguric acute kidney injury secondary to ATN secondary to hypercalcemia. Creatinine stable at 2.8. No evidence of hydronephrosis noted on renal ultrasound. #2. Hypercalcemia likely related to underlying malignancy. I don't see any calcium or vitamin D supplements and his home medications. #3. Hypokalemia from renal potassium wasting. Magnesium also little bit on the lower side. #4. History of hypertension. Currently controlled. Plan: Continue normal saline to be run at 200 mL an hour. Status post 60 mg IV pamidronate on April 01 - this will take 3-4 days before taking its peak effect. I will increase calcitonin to 6 international units per kilogram every 8 hours IM. Potassium being aggressively replaced. Magnesium also being replaced. Check BMP this evening. Follow-up electrophoresis studies, PTH, vitamin D, 1,25 D3 as well as CHICO levels. Avoid nephrotoxic agents and hypotensive episodes. Thank you for the consultation. I will continue to follow the patient with you during his hospital stay.
[2017-04-02] MEDS: THIAMINE 100 MG TAB PO SCH (12:26)
--- NOTE | 2017-04-02 13:48 | P.PN ---
Subjective Progress Note Date: 04/02/17 This is a 82-year-old male patient with known history of coronary artery disease with previous PCI, chronic atrial fibrillation, hypertension and hyperlipidemia, and osteoarthritis, who came into the emergency department very lethargic and weak. Apparently the patient was becoming progressively more weak and dizzy and he had a fall that occurred around 4 AM when the patient was trying to go to the bathroom. Patient states that he lost balance and he fell. He denies having any significant injuries. No head injury. He stated that he has chronic back pain and the back and has essentially been unchanged. The patient was brought into the hospital and he was seen and burst department he was found to have significant abnormalities in his blood work and electrolytes. Specifically the patient was found to be anemic with a hemoglobin of 9.8, the patient was found to have a PTT of 200 knowing that he is on oral anticoagulation with Eliquis, he was found to be hypokalemic with a potassium level of 2.2, he was an acute kidney injury with a creatinine of 3.0, his serum calcium level was 20.3 with an ionized calcium of 10.2 and a phosphorus level of 2.6 and a magnesium 1.8 and an alkaline phosphatase of 84 with a CPK of 4399 and troponin was 0.247. The patient's total serum protein was 10.4 and albumin was 4.0. Note that the patient was being investigated for back pain and had undergone a CAT scan of the lumbosacral spine on 02/22/2017 and he was found to have multi leveled compressive deformities including the greatest at the level of L3 with approximately 50% loss of the mid vertebral body height. There was also compression at the level of L4 and endplates of L2 and superior endplates of L1 and also poses was also present and possibility of underlying lytic lesions were also included and suspected. There is also evidence of spinal canal stenosis at the level of L4-L5. A bone scan that was done on 03/04/2017 showed demineralization that was diffuse without any evidence of an acute or subacute fractures. [facility]. He was given [place] for pain control which made him more confused and lethargic. At this point in time he is on IV fluids. He is receiving 200 mL an hour of normal saline along with potassium replacement. The patient is also on alendronate 60 mg IV. On 04/02/2017 I'm seeing this patient for a follow-up. As mentioned yesterday the patient was Hospital as for an acute hypercalcemia and electrode disturbance and acute kidney injury. The patient was resuscitated aggressively with IV fluids and he was receiving 200 mL of normal saline hourly basis. He is producing adequate amount of urine output which is estimated to be more than 70 mL an hourly basis. The patient also received IV pamidronate and the patient received calcitonin. There is a modest improvement in the calcium level which is down to 18.4. Creatinine is also unchanged at 2.8. Patient is still lethargic, confused, and somewhat debilitated. Skeletal series were obtained and the patient was found to have generalized osteopenia marked degenerative spine changes at all levels and mild L3 vertebral body compression fracture. The myeloma workup was initiated and the workup is still pending. PTH levels are also pending. Ultrasound the kidneys showed no evidence of hydronephrosis. Note that urinalysis is also failed to show any significant proteinuria. Nephrology is on the case. Awaiting the myeloma workup. Awaiting an oncology consultation. Objective - Vital Signs Vital signs: Vital Signs Temp 98.0 F 04/02/17 08:00 Pulse 113 H 04/02/17 13:00 Resp 16 04/02/17 12:00 BP 150/86 04/02/17 13:00 Pulse Ox 97 04/02/17 13:00 Intake & Output 04/01/17 04/02/17 04/02/17 18:59 06:59 18:59 Intake Total 520 2800 1325 Output Total 745 2865 890 Balance -225 -65 435 Weight 97.522 kg 91 kg Intake: Intake, IV Titration 520 2800 1250 Amount 0.9% NaCl with KCl 20 Meq 400 2400 200 /l 1,000 ml @ 200 mls/hr IV .Q5H [facility] Rx#:[id number] Magnesium Sulfate-D5w Pmx 100 1 gm In Dextrose/Water 1 100ml.bag @ 100 mls/hr IVPB ONCE ONE Rx#: [id number] Potassium Chloride 20 meq 120 In Sodium Chloride 0.9% 100 ml @ 50 mls/hr IVPB ONCE STA Rx#:[id number] Potassium Chloride 20 meq 50 1050 In Sodium Chloride 0.9% 100 ml @ 50 mls/hr IVPB Q2HR [facility] Rx#:[id number] Potassium Chloride 20 meq 250 In Sodium Chloride 0.9% 100 ml @ 55 mls/hr IVPB Q2H [facility] Rx#:[id number] Oral 75 Output: Urine 642 7229 890 Other: Voiding Method Indwelling Catheter Indwelling Catheter Indwelling Catheter # Emeses 1 - Exam Patient is lethargic and confused resting comfortably in bed. He cannot answer simple questions. He moans. He seems to be in moderate degree of pain. Head is atraumatic normocephalic.Head exam was generally normal. There was no scleral icterus or corneal arcus. Mucous membranes were moist.Neck was supple and without jugular venous distension, thyromegaly, or carotid bruits. Carotids were easily palpable bilaterally. There was no adenopathy. Mucous membranes are dry. Lung sounds are diminished bilaterally otherwise they're clear. There is no wheezes overall currently crackles.Cardiac exam revealed the PMI to be normally situated and sized. The rhythm was regular and no extrasystoles were noted during several minutes of auscultation. The first and second heart sounds were normal and physiologic splitting of the second heart sound was noted. There were no murmurs, rubs, clicks, or gallops.Abdominal exam revealed normal bowel sounds. The abdomen was soft, non-tender, and without masses, organomegaly, or appreciable enlargement of the abdominal aorta.Examination of the extremities revealed easily palpable radial, femoral and pedal pulses. There was no cyanosis, clubbing or edema.Examination of the skin revealed no evidence of significant rashes, suspicious appearing nevi or other concerning lesions. Neurologically the patient is confused and he has diminished level of consciousness. He withdraws to painful stimuli. Cranial nerves are intact. - Labs CBC & Chem 7: 04/02/17 03:33 04/02/17 03:33 Labs: Abnormal Lab Results - Last 24 Hours (Table) 04/01/17 04/01/17 04/01/17 Range/Units 13:52 14:30 15:22 WBC 11.3 H (3.8-10.6) k/uL RBC 2.84 L (4.30-5.90) m/uL Hgb 10.3 L (13.0-17.5) gm/dL Hct 30.5 L (39.0-53.0) % MCV 107.5 H (80.0-100.0) fL MCH 36.2 H (25.0-35.0) pg RDW 16.6 H (11.5-15.5) % Neutrophils # 9.8 H (1.3-7.7) k/uL Lymphocytes # 0.8 L (1.0-4.8) k/uL INR (<1.2) Potassium (3.5-5.1) mmol/L Chloride (98-107) mmol/L BUN (9-20) mg/dL Creatinine (0.66-1.25) mg/dL Glucose (74-99) mg/dL POC Glucose (mg/dL) 125 H (75-99) mg/dL Calcium (8.4-10.2) mg/dL Ionized Calcium Elinor (4.5-5.3) mg/dL Phosphorus (2.5-4.5) mg/dL Creatine Kinase (55-170) U/L Total Protein (PEP) (6.2-8.2) g/dL Urine Protein Trace H (Negative) Urine Blood Moderate H (Negative) Ur Leukocyte Esterase Trace H (Negative) Urine WBC 8 H (0-5) /hpf Amorphous Sediment Occasional H (None) /hpf Urine Bacteria Rare H (None) /hpf Hyaline Casts 4 H (0-2) /lpf U Random Total Protein (<12) mg/dL 04/01/17 04/01/17 04/01/17 Range/Units 15:22 19:25 19:25 WBC (3.8-10.6) k/uL RBC (4.30-5.90) m/uL Hgb (13.0-17.5) gm/dL Hct (39.0-53.0) % MCV (80.0-100.0) fL MCH (25.0-35.0) pg RDW (11.5-15.5) % Neutrophils # (1.3-7.7) k/uL Lymphocytes # (1.0-4.8) k/uL INR 1.3 H (<1.2) Potassium 3.1 L (3.5-5.1) mmol/L Chloride 97 L (98-107) mmol/L BUN 38 H (9-20) mg/dL Creatinine 2.70 H (0.66-1.25) mg/dL Glucose 115 H (74-99) mg/dL POC Glucose (mg/dL) (75-99) mg/dL Calcium 19.2 H* (8.4-10.2) mg/dL Ionized Calcium Elinor (4.5-5.3) mg/dL Phosphorus (2.5-4.5) mg/dL Creatine Kinase (55-170) U/L Total Protein (PEP) 9.9 H (6.2-8.2) g/dL Urine Protein (Negative) Urine Blood (Negative) Ur Leukocyte Esterase (Negative) Urine WBC (0-5) /hpf Amorphous Sediment (None) /hpf Urine Bacteria (None) /hpf Hyaline Casts (0-2) /lpf U Random Total Protein (<12) mg/dL 04/02/17 04/02/17 04/02/17 Range/Units 03:33 03:33 10:43 WBC 12.9 H (3.8-10.6) k/uL RBC 2.99 L (4.30-5.90) m/uL Hgb 10.4 L (13.0-17.5) gm/dL Hct 32.2 L (39.0-53.0) % MCV 107.8 H (80.0-100.0) fL MCH (25.0-35.0) pg RDW 17.1 H (11.5-15.5) % Neutrophils # 11.7 H (1.3-7.7) k/uL Lymphocytes # 0.6 L (1.0-4.8) k/uL INR (<1.2) Potassium 3.1 L (3.5-5.1) mmol/L Chloride (98-107) mmol/L BUN 36 H (9-20) mg/dL Creatinine 2.80 H (0.66-1.25) mg/dL Glucose 139 H (74-99) mg/dL POC Glucose (mg/dL) (75-99) mg/dL Calcium 18.4 H* (8.4-10.2) mg/dL Ionized Calcium Elinor 9.6 H* (4.5-5.3) mg/dL Phosphorus 2.4 L (2.5-4.5) mg/dL Creatine Kinase 746 H (55-170) U/L Total Protein (PEP) (6.2-8.2) g/dL Urine Protein (Negative) Urine Blood (Negative) Ur Leukocyte Esterase (Negative) Urine WBC (0-5) /hpf Amorphous Sediment (None) /hpf Urine Bacteria (None) /hpf Hyaline Casts (0-2) /lpf U Random Total Protein (<12) mg/dL 04/02/17 Range/Units 13:10 WBC (3.8-10.6) k/uL RBC (4.30-5.90) m/uL Hgb (13.0-17.5) gm/dL Hct (39.0-53.0) % MCV (80.0-100.0) fL MCH (25.0-35.0) pg RDW (11.5-15.5) % Neutrophils # (1.3-7.7) k/uL Lymphocytes # (1.0-4.8) k/uL INR (<1.2) Potassium (3.5-5.1) mmol/L Chloride (98-107) mmol/L BUN (9-20) mg/dL Creatinine (0.66-1.25) mg/dL Glucose (74-99) mg/dL POC Glucose (mg/dL) (75-99) mg/dL Calcium (8.4-10.2) mg/dL Ionized Calcium Elinor (4.5-5.3) mg/dL Phosphorus (2.5-4.5) mg/dL Creatine Kinase (55-170) U/L Total Protein (PEP) (6.2-8.2) g/dL Urine Protein (Negative) Urine Blood (Negative) Ur Leukocyte Esterase (Negative) Urine WBC (0-5) /hpf Amorphous Sediment (None) /hpf Urine Bacteria (None) /hpf Hyaline Casts (0-2) /lpf U Random Total Protein 43 H (<12) mg/dL Assessment and Plan Plan: Assessment 1 acute hypercalcemia with a clinical presentation which is very highly suspicious for multiple myeloma. The patient presents in with hyperproteinemia , acute hypercalcemia, acute kidney failure, compression fracture of the lumbar spine at the level of L3-L4 5 and possibility of some lytic lesions involving the spine. The patient is currently being resuscitated IV fluids and the patient is receiving calcitonin and he has also received 60 mg of pamidronate 2 change in mental status secondary to above. The patient presented with severe dehydration and severe electrode disturbance with hypercalcemia and hypokalemia and addition to a mild component of rhabdomyolysis 3 generalized weakness and fall secondary to above 4 acute rhabdomyolysis secondary to above 5 acute hypokalemia, replace and the potassium level today is up to 3.1 6 compression fracture of the lumbar spine at the level of L3-L4 and L5 along with possibility of lytic lesions and the patient has extensive demineralization of the bones and lumbar spine 7 chronic back pain 8 coronary artery disease 9 chronic atrial fibrillation 10 acute coagulopathy probably related to varicose toxicity. The patient does not have any signs of bleeding 11 acute kidney injury/kidney failure. Rule out myeloma kidney. Rule out prerenal factors secondary to dehydration 12 BPH 13 diverticular disease with benign colonic polyps and hemorrhoids 14 diffuse zoster rosio Plan Continue the fluid resuscitation. Monitor calcium level. Anticipate further drop and the calcium special with pamidronate that'll work within the next few days. Continue the calcitonin. Intact PTH is low. Awaiting serum protein electrophoresis and immune diaphoresis. Family was updated on his condition. He'll be kept in ICU. We'll follow.
[2017-04-02] MEDS: CALCITONIN INJ 200 UNIT/ML (MDV) VIAL IM SCH ×2 (15:38→23:42)
--- NOTE | 2017-04-02 17:56 | P.CONS ---
History of Present Illness - Reason for Consult Consult date: 04/02/17 Hypercalcemia, rule out MM Requesting physician: Justin Glaser - Chief Complaint Confusion and fall - History of Present Illness Mr. Rodas is a pleasant 82-year-old gentleman who is here for confusion and weakness. He has multiple comorbidities as per his medical history including atrial fibrillation, CAD, hypertension, hyperlipidemia, and DJD. He has been having problems with back pain that was being treated with [place] as an outpatient. His PCP recently wanted to stop this. He did have a fall unfortunately after thus was stopped and increasing confusion that brought him into the hospital. In the hospital he was found to have a calcium level of 20 with slight leukocytosis, slight anemia, and normal platelets. Total protein was slightly elevated at 9.9 as well and creatinine was 3 with slight improvement to 2.8 with hydration. PTH was checked and was 15.1. With aggressive hydration his calcium only slightly improved from 20 down to 18. Nephrology is on board and he is on aggressive hydration. He also received a dose of pamidronate yesterday and has been on calcitonin as well. He did undergo a bone survey that was unremarkable for lytic lesions. It did show some osteopenia and mild L3 compression fracture as well as DJD. Trending his blood counts he did have a completely normal CBC back in 2013 with a hemoglobin of 13.8, WBC 5.7, platelet 200, however his MCV was elevated at 105 at that time. Currently his MCV remains elevated at 107. He did develop a slight anemia in the interim however with hemoglobin of 10 currently. He has not had any other complaints although he is currently a poor historian. There is no family at bedside to help with his history. I did obtain some of his history from his nurse who is relaying information that his family had provided. Otherwise history was obtained from his chart. Review of Systems [employer] due to patient being a poor historian and no family at bedside. Overall however negative except for what is listed in the HPI. All systems: negative Constitutional: Denies chills, Denies fever Eyes: denies blurred vision, denies pain Ears, nose, mouth and throat: Denies headache, Denies sore throat Cardiovascular: Denies chest pain, Denies shortness of breath Respiratory: Denies cough Gastrointestinal: Denies abdominal pain, Denies diarrhea, Denies nausea, Denies vomiting Musculoskeletal: Denies myalgias Integumentary: Denies pruritus, Denies rash Neurological: Denies numbness, Denies weakness Psychiatric: Denies anxiety, Denies depression Endocrine: Denies fatigue, Denies weight change Past Medical History Past Medical History: Atrial Fibrillation, Coronary Artery Disease (CAD), Hyperlipidemia, Hypertension, Osteoarthritis (OA), Prostate Disorder, Vascular Disorder Additional Past Medical History / Comment(s): Chronic low back pain, lumbar vertebrae fracture, recent pain medication change and pt/spouse states he has had increased weakness and decreased appetite since, arthritis mostly in his back, BPH, bilateral leg varicosities, gout, diverticular dx, colon benign polyp , hemorrhoids. History of Any Multi-Drug Resistant Organisms: None Reported Past Surgical History: Heart Catheterization With Stent, Hernia Repair, Joint Replacement Additional Past Surgical History / Comment(s): 1982 PTCA, 2003/2009/2011 PCIs with stents, 2013 cardioversion, [place] cataracts with lens implants, R eye surgery for detached retina, [place] knee replacement and rt hip replacement, R inguinal hernia repair, colonoscopies/benign polypectomy. Past Anesthesia/Blood Transfusion Reactions: Motion Sickness Additional Past Anesthesia/Blood Transfusion Reaction / Comm: Pt states he has had blood in past without reaction. Date of Last Stent Placement:: 2011 Smoking Status: Former smoker - Past Family History Father Family Medical History: Myocardial Infarction (SC) Additional Family Medical History / Comment(s): Father of a SC at the age of 72 yrs. Mother Family Medical History: No Reported History Additional Family Medical History / Comment(s): Mother lived to be 84 yrs old. Medications and Allergies Home Medications Medication Instructions Recorded Confirmed Type Allopurinol [Zyloprim] 300 mg PO DAILY 08/20/13 04/01/17 History Cholecalciferol [Vitamin D3] 1,000 unit PO DAILY 08/20/13 04/01/17 History Finasteride [Proscar] 5 mg PO DAILY 08/20/13 04/01/17 History Gluc HCl/Jt/Mv/Min Aa/Hb 162 1 tab PO BID 08/20/13 04/01/17 History [Glucosamine-Chondroitin Caplet] Multivitamin/Iron/Folic Acid 1 tab PO DAILY 08/20/13 04/01/17 History [Centrum Complete Multivit Tab] Rosuvastatin Calcium [Crestor] 20 mg PO DAILY 08/20/13 04/01/17 History Terazosin [Hytrin] 5 mg PO HS 08/20/13 04/01/17 History Apixaban [Eliquis] 2.5 mg PO BID 10/23/13 04/01/17 History HYDROcodone/APAP 7.5-325MG [[place] 1 tab PO QID PRN 04/01/17 04/01/17 History 7.5-325] Metoprolol Tartrate [Lopressor] 12.5 mg PO BID 04/01/17 04/01/17 History [place]-3 Fatty Acids/Fish Oil [Fish 1 cap PO DAILY 04/01/17 04/01/17 History Oil 1,000 mg Softgel] Vitamin B-1 250mg 250 mg PO DAILY 04/01/17 04/01/17 History amLODIPine [Norvasc] 5 mg PO DAILY 04/01/17 04/01/17 History cloNIDine HCL [Catapres] 0.1 mg PO BID 04/01/17 04/01/17 History traMADol HCL [Ultram] 50 mg PO BID PRN 04/01/17 04/01/17 History Allergies Allergy/AdvReac Type Severity Reaction Status Date / Time Sulfa (Sulfonamide Allergy Swelling Verified 10/23/13 08:31 Antibiotics) Physical Exam Vitals: Vital Signs Temp Pulse Resp BP Pulse Ox 04/02/17 17:00 124 H 148/87 96 04/02/17 16:30 125 H 96 04/02/17 16:00 135 H 16 172/96 95 04/02/17 15:30 113 H 159/90 97 04/02/17 15:00 118 H 133/88 96 04/02/17 14:30 104 H 153/76 97 04/02/17 14:00 100 153/85 97 04/02/17 13:30 131 H 158/85 97 04/02/17 13:00 113 H 150/86 97 04/02/17 12:30 123 H 157/87 96 04/02/17 12:00 113 H 16 146/68 96 04/02/17 11:30 140 H 195/101 96 04/02/17 11:00 99 149/91 99 04/02/17 10:30 113 H 160/80 97 04/02/17 10:00 100 157/78 97 04/02/17 09:30 96 162/85 98 04/02/17 09:04 97 04/02/17 09:00 100 136/80 97 04/02/17 08:30 119 H 144/82 97 04/02/17 08:00 98.0 F 109 H 169/81 97 04/02/17 07:30 122 H 157/76 97 04/02/17 07:00 117 H 157/72 96 04/02/17 06:30 103 H 154/78 96 04/02/17 06:00 120 H 148/81 97 04/02/17 05:30 130 H 142/77 96 04/02/17 05:00 111 H 183/111 75 L 04/02/17 04:30 113 H 182/123 95 04/02/17 04:00 147 H 16 163/88 97 04/02/17 03:30 120 H 159/99 98 04/02/17 03:00 107 H 113/78 97 04/02/17 02:30 92 179/104 96 04/02/17 02:00 132 H 157/90 96 04/02/17 01:30 122 H 151/99 96 04/02/17 01:00 136 H 145/98 97 04/02/17 00:30 97.8 F 128 H 182/90 95 04/02/17 00:00 128 H 16 194/101 04/01/17 23:30 115 H 176/93 97 04/01/17 23:05 114 H 195/86 97 04/01/17 23:00 109 H 166/91 96 04/01/17 22:30 126 H 176/89 97 04/01/17 22:00 119 H 141/97 98 04/01/17 21:30 128 H 170/91 96 04/01/17 21:00 50 L 180/100 98 04/01/17 20:30 103 H 193/93 97 04/01/17 20:00 98.1 F 103 H 16 96 04/01/17 19:30 119 H 195/118 97 04/01/17 19:00 117 H 195/87 96 04/01/17 18:30 120 H 177/87 04/01/17 18:00 123 H 177/87 Intake and Output 04/02/17 04/02/17 04/02/17 06:59 14:59 22:59 Intake Total 1850 1525 600 Output Total 2075 1040 350 Balance -225 485 250 Intake: Intake, IV Titration 1850 1450 600 Amount 0.9% NaCl with KCl 20 Meq 1600 200 /l 1,000 ml @ 200 mls/hr IV .Q5H [facility] Rx#:[id number] Magnesium Sulfate-D5w Pmx 100 1 gm In Dextrose/Water 1 100ml.bag @ 100 mls/hr IVPB ONCE ONE Rx#: [id number] Potassium Chloride 20 meq 50 1250 600 In Sodium Chloride 0.9% 100 ml @ 50 mls/hr IVPB Q2HR [facility] Rx#:[id number] Potassium Chloride 20 meq 100 In Sodium Chloride 0.9% 100 ml @ 55 mls/hr IVPB Q2H [facility] Rx#:[id number] Oral 75 Output: Urine 2074 1040 350 Other: Voiding Method Indwelling Catheter Indwelling Catheter Indwelling Catheter # [place] 1 Weight 91 kg 91 kg Patient Weight 04/03/17 06:59 Weight 91 kg Vital signs stable Constitutional: No acute distress, sleeping and confused slightly. HEENT: EOMI. Mucosa moist. Neck: Neck supple. Lungs: CTA-B without wheezing. Heart: RRR without murmurs. No lower extremity pitting edema. Abdomen: Soft, nondistended, with positive bowel sounds. Seems to be slightly tender to palpation as patient moans a little bit upon palpation without any guarding or rigidity or rebound. MSK: Difficult to assess due to patient's confusion. Neuro: Patient is oriented 3 however he is very drowsy and minimally cooperative. No obvious gross neurologic deficits. Skin: No obvious jaundice or rash other than slight discoloration in his left lower extremity. Psych: Patient is drowsy and minimally responsive due to hypercalcemia and difficult assess affect at this time Results CBC & Chem 7: 04/02/17 03:33 04/02/17 03:33 Labs: Abnormal Lab Results - Last 24 Hours (Table) 04/01/17 04/01/17 04/02/17 Range/Units 19:25 19:25 03:33 WBC 12.9 H (3.8-10.6) k/uL RBC 2.99 L (4.30-5.90) m/uL Hgb 10.4 L (13.0-17.5) gm/dL Hct 32.2 L (39.0-53.0) % MCV 107.8 H (80.0-100.0) fL RDW 17.1 H (11.5-15.5) % Neutrophils # 11.7 H (1.3-7.7) k/uL Lymphocytes # 0.6 L (1.0-4.8) k/uL Potassium 3.1 L (3.5-5.1) mmol/L Chloride 97 L (98-107) mmol/L BUN 38 H (9-20) mg/dL Creatinine 2.70 H (0.66-1.25) mg/dL Glucose 115 H (74-99) mg/dL Calcium 19.2 H* (8.4-10.2) mg/dL Ionized Calcium Elinor (4.5-5.3) mg/dL Phosphorus (2.5-4.5) mg/dL Creatine Kinase (55-170) U/L Total Protein (PEP) 9.9 H (6.2-8.2) g/dL U Random Total Protein (<12) mg/dL 04/02/17 04/02/17 04/02/17 Range/Units 03:33 10:43 13:10 WBC (3.8-10.6) k/uL RBC (4.30-5.90) m/uL Hgb (13.0-17.5) gm/dL Hct (39.0-53.0) % MCV (80.0-100.0) fL RDW (11.5-15.5) % Neutrophils # (1.3-7.7) k/uL Lymphocytes # (1.0-4.8) k/uL Potassium 3.1 L (3.5-5.1) mmol/L Chloride (98-107) mmol/L BUN 36 H (9-20) mg/dL Creatinine 2.80 H (0.66-1.25) mg/dL Glucose 139 H (74-99) mg/dL Calcium 18.4 H* (8.4-10.2) mg/dL Ionized Calcium Elinor 9.6 H* (4.5-5.3) mg/dL Phosphorus 2.4 L (2.5-4.5) mg/dL Creatine Kinase 746 H (55-170) U/L Total Protein (PEP) (6.2-8.2) g/dL U Random Total Protein 43 H (<12) mg/dL Total protein 9.9, ionized calcium 9.6, PTH 15.1 Comments: Bone survey reviewed and only suggestive of osteopenia with some degenerative changes. No obvious lytic lesions. Assessment and Plan Assessment: #1 hypercalcemia of unclear etiology #2 acute kidney injury due to dehydration and hypercalcemia #3 anemia, macrocytic #4 leukocytosis, likely stress related #5 altered mentation likely due to hypercalcemia Plan: Mr. Rodas is a very pleasant 82-year-old gentleman is here for confusion due to hypercalcemia and acute kidney injury. His calcium is significantly elevated at 20 with slight improvement despite aggressive treatment with hydration, Pamidronate, and calcitonin. His bone survey is unremarkable for any lytic lesions. CT of the chest was also negative. He did have a borderline low PTH. Vitamin D is still pending as well as a protein electrophoresis. We'll complete his myeloma workup with a urine protein electrophoresis as well as of free light chain ratio. Nephrology on board in managing his hypercalcemia. Agree with aggressive hydration. Patient already received bisphosphonate. He possibly will need a bone marrow biopsy on Tuesday. We'll continue to monitor with you.
[2017-04-02 18:24] LABS: Anion Gap 15 mmol/L; Blood Urea Nitrogen 40 mg/dL (9-20); Carbon Dioxide 25 mmol/L (22-30); Chloride 110 mmol/L (98-107); Glucose 130 mg/dL (74-99); Potassium 4.2 mmol/L (3.5-5.1); Sodium 150 mmol/L (137-145)
[2017-04-02 18:53] LABS: Calcium >14.0 mg/dL (8.4-10.2)
[2017-04-02 19:34] LABS: Ionized Calcium 9.1 mg/dL (4.5-5.3)
[2017-04-02 19:53] LABS: Calcium 16.6 mg/dL (8.4-10.2)
--- NOTE | 2017-04-02 20:08 | P.PN ---
Progress Note - Text Progress Note Date: 04/02/17 DATE OF SERVICE: 04/02/2017 PRESENTING COMPLAINT: Fall HISTORY OF PRESENT ILLNESS: 82-year-old male who sustained a fall in the bathroom at all 4 AM presented to the emergency department for further evaluation. Patient was confused, had multiple laboratory abnormalities, primarily creatinine kinase 4399, potassium 2.7, creatinine of 2.81 and calcium at 20.8. Admitted for further evaluation and treatment of these abnormalities as well as back pain. INTERVAL HISTORY: 04/02/2017 Lying in bed, somewhat lethargic, aggressive fluid resuscitation continues, received calcitonin, and pamidronate with very small amount of improvement in the calcium level. Creatinine is unchanged 2.8. Skeletal series revealed generalized osteopenia marked degenerative spine changes at all levels and a mild L3 vertebral body compression fracture. Multiple myeloma workup is pending as are parathyroid hormone levels. Ultrasound of the kidneys show no evidence of hydronephrosis. Await additional input from oncology. Appetite is poor, patient is not eating much of any meals. at the bedside states that this is how it's been for about the past 30 days. Last BM prior to admission. REVIEW OF SYSTEMS: Done for constitutional ,cardiovascular, GI, pulmonary with relevant findings as above. CURRENT MEDICATIONS [place], Norvasc, Dulcolax, Miacalcin, clonidine, Cardura, Proscar, hydralazine, Lopressor, Protonix, thiamine, Ultram. PHYSICAL EXAM VITAL SIGNS: Temperature 98.0, pulse 109, respiratory rate 18, blood pressure 169/81, oxygen saturation 97% on 2 L. GENERAL APPEARANCE: Lying in bed, lethargic yet arousable. HENT: Normocephalic, JVD not raised. Mass not palpable. Oral cavity dry, external appearance of ears and nose normal. EYES:Pupils equal. Conjunctiva normal. RESPIRATORY: Respiratory effort normal. Lungs managed to auscultation. CARDIOVASCULAR: First and second sounds normal. No edema. ABDOMEN: Soft. Liver and spleen not palpable. No tenderness. No mass palpable. PSYCHIATRY: Alert and oriented 2-3. Mood and affect lethargic. INVESTIGATIONS: Sodium 150, chloride 110, BUN 40, creatinine 2.60, calcium greater than 14 ASSESSMENT: -Acute severe hypercalcemia cause unclear with multiple myeloma in the differential -Acute metabolic encephalopathy multifactorial including renal failure, hypercalcemia, hypokalemia. -Medical debility, multifactorial -Acute rhabdomyolysis secondary to fall -Acute hypokalemia secondary to decreased oral intake, corrected -Compression fracture of the lumbar spine at the level of L3-L4 and L5 along with possibility of lytic lesions, extensive demineralization of bones and lumbar spine. -Chronic low back pain from compression fractures of lumbar spine at L3, L4, L5 -Coronary artery disease with prior history of stent -Persistent atrial fibrillation -Essential hypertension -Acute kidney injury severe possibly dueto acute tubular necrosis -Benign prostatic hypertrophy -Hypernatremia, likely from free water deficit. PLAN: Continue normal saline at 200 mL an hour, calcitonin increased per nephrology, continue electrolyte replacement of potassium and magnesium with follow-up BMP. Await serum protein electrophoresis and immune electrophoresis and oncology planning possible bone marrow biopsy on Tuesday. Plan of care discussed at the bedside with family there in agreement. We will follow closely. ASPHALT RAKER statement: Patient was seen and examined by nurse practitioner Sydney García and all elements of the case discussed with attending Dr. Newsome
[2017-04-02] MEDS ORDERED: SODIUM CHLORIDE 0.45% 1,000 ML IV SCH (20:15)
[2017-04-02] MEDS: DOXAZOSIN 4 MG TAB PO SCH (21:20)
--- NOTE | 2017-04-02 22:29 | PN ---
PROGRESS NOTE DATE OF SERVICE: 04/02/17. ATTENDING NOTE: The patient seen and examined by me. Discussed with my nurse practitioner Ms. García. The patient admitted to the ICU, somewhat lethargic. Answering occasions question. at the bedside. The patient being worked up for hypercalcemia. Bone survey was negative for any lytic lesions. The patient did get IV pamidronate and calcitriol. The patient also has got acute renal failure. He has been eating small amounts. PHYSICAL EXAMINATION: On examination, afebrile, pulse 109, blood pressure 169/81, pulse ox 97%. Lethargic but arousable. Lungs fair entry. HEART: Sounds irregular. INVESTIGATIONS: White count 11.3, hemoglobin 10.4, BUN 40, creatinine 2.60, sodium 150. Ionized calcium is 9.1. ASSESSMENT: 1. Acute hypercalcemia, severe at this point cause unclear with multiple myeloma in the differential. 2. Acute metabolic encephalopathy multifactorial including renal failure, hypercalcemia, hypokalemia. 3. Medical debility multifactorial. 4. Acute hypokalemia, severe, now corrected. 5. Low back pain from compression fracture of lumbar spine at L3, L4, L5. 6. Chronic osteopenia. 7. Coronary artery disease with prior history of stent. 8. Persistent atrial fibrillation. 9. Essential hypertension. 10.Acute kidney injury, severe, possibly acute tubular necrosis. 11.Colonic diverticulosis. 12.Benign prostatic hypertrophy. 13.Hypernatremia, likely from free water deficit. PLAN: Given that patient's sodium is high, chloride is high, we will change the patient IV fluids to the patient actually already getting half saline switched over from normal saline. Care was discussed with the at the bedside. Prognosis is guarded. The patient is very slow to respond. MMODL / IJN: [id number] /
--- NOTE | 2017-04-02 22:50 | PN ---
PROGRESS NOTE This patient was seen in the consultation yesterday. The patient came with lethargy. The patient had significant electrolytes and calcium abnormalities. Patient significant atrial fibrillation with a rate of 110 to 120, blood pressure is 148/87, the patient is lethargic. First and second heart sounds are normal. The lungs are clinically clear to auscultation and percussion. Patient's urine output remains good. Hemoglobin is 10.4, patient's repeat PTT now is 22. Calcium level is 18.4, and total ionized calcium is 9.6, patient's troponin is 0.247. Echocardiogram reveals overall normal left ventricular systolic functions. The patient's total protein is significantly elevated. FINAL IMPRESSION: This patient is in atrial fibrillation with moderate rapid ventricular response. Discussed the condition with patient. If the heart rate persistently remains about 120- 130, we will start the patient on Cardizem drip. The patient has been currently being treated and workup for the hypercalcemia. A possibility of multiple myeloma is considered. is Sid Rios this patient was admitted with GI bleed. He came back because she has been to the ED in stable he is having no more episodes of bleeding since admission the patient is afebrile blood pressure is 110/66 mmHg. The patient has a heart rate is 80 per minute. In the intermittent PVCs are noted respiratory rate remains in the range of 20-25%. Second heart sounds are normal. Bilateral nose rhonchi noted. Patient's hemoglobin is 8.3. Reveal a electrolytes are normal. Creatinine is 1.3. We will continue the current medications. patient is Geno bands at this patient was admitted with a history suggestive for lower GI bleeding and low blood pressure. The patient underwent colonoscopy patient was found to have diverticulosis no significant other abnormality is detected. Patient is afebrile. The patient's blood pressure is 92/49 mmHg. Respiratory rate is 20, blood pressure is 92/49 mmHg. First and second heart sounds are normal. Lungs are clear. Currently clinically clear to auscultation and percussion. The patient has a hemoglobin is 8.1, electrolytes were normal. Discussed the condition with the patient's nurse we will discuss with Dr. Payne as an ERCP. There is no evidence of any more bleeding then the patient can be started on Eliquis 2.5 mg b.i.d.. MMODL / IJN: [id number] /
[2017-04-03] MEDS ORDERED: 0.45% NACL WITH KCL 20 MEQ/L 1,000 ML IV SCH (05:30)
[2017-04-03 05:33] LABS: Anisocytosis Slight; Basophils % (A) 0 %; Eosinophils % (A) 0 %; HCT 27.8 % (39.0-53.0); Lymphocytes # (A) 0.7 k/uL (1.0-4.8); Lymphocytes % (A) 6 %; MCH 35.5 pg (25.0-35.0); MCHC 32.3 g/dL (31.0-37.0); MCV 109.9 fL (80.0-100.0); Macrocytosis Marked; Mean Platelet Volume 7.2; Monocytes # (A) 0.5 k/uL (0-1.0); Monocytes % (A) 5 %; Neutrophils # (A) 9.2 k/uL (1.3-7.7); Neutrophils % (A) 88 %; Platelet Count 254 k/uL (150-450); Poikilocytosis Slight; RBC 2.53 m/uL (4.30-5.90); RDW 16.4 % (11.5-15.5); WBC 10.5 k/uL (3.8-10.6)
[2017-04-03 05:46] LABS: Ionized Calcium 8.6 mg/dL (4.5-5.3)
[2017-04-03 05:47] LABS: Magnesium 1.6 mg/dL (1.6-2.3); Phosphorus 2.3 mg/dL (2.5-4.5); Potassium 3.8 mmol/L (3.5-5.1)
[2017-04-03] MEDS: 0.45% NACL WITH KCL 20 MEQ/L 1,000 ML IV SCH ×3 (06:01→21:59)
[2017-04-03 06:13] LABS: Calcium 15.4 mg/dL (8.4-10.2)
[2017-04-03] MEDS: hydrALAZINE HCL 20 MG/ML 1 ML VIAL IVP PRN (06:20)
[2017-04-03] MEDS: POTASSIUM CHLORIDE 10 MEQ in WATER FOR INJECTION 1 100ML.BAG IVPB SCH ×2 (07:45→09:03)
[2017-04-03] MEDS: MAGNESIUM SULFATE-D5W PMX 1 GM in DEXTROSE/WATER 1 100ML.BAG IVPB SCH ×2 (07:45→09:04)
[2017-04-03] MEDS: METOPROLOL TARTRATE 12.5 MG TAB PO SCH ×2 (08:13→20:34)
[2017-04-03] MEDS: cloNIDine HCL 0.1 MG TAB PO SCH ×2 (08:13→20:34)
[2017-04-03] MEDS: amLODIPine 5 MG TAB PO SCH (08:13)
[2017-04-03] MEDS: FINASTERIDE 5 MG TAB PO SCH (08:13)
[2017-04-03] MEDS: PANTOPRAZOLE 40 MG/10 ML VIAL IV SCH (08:14)
[2017-04-03] MEDS: CALCITONIN INJ 200 UNIT/ML (MDV) VIAL IM SCH ×2 (08:30→15:30)
[2017-04-03 10:28] LABS: Reticulocyte % 2.7 % (0.5-2.0)
[2017-04-03] MEDS ORDERED: Phosphorus Replacement Protoco 1 EACH MISC MISCELLANE PRN (10:49)
[2017-04-03] MEDS: POTASSIUM PHOSPHATE 10 MMOL in SODIUM CHLORIDE 0.9% 250 ML IV SCH ×2 (11:13→13:46)
--- NOTE | 2017-04-03 11:13 | P.PN ---
Subjective Patient is seen in follow-up for acute kidney injury. Creatinine in October 2013 was 0.85. This admission it has been stable in the range of 2.6-3. Patient was noted to be severely hypercalcemic with calcium level greater than 20. He is maintained on calcitonin every 8 hours and calcium level is down to 15.4 this morning. He is currently maintained on half normal saline at 200 mL an hour. He is more awake and alert today. He is nothing by mouth due to risk for aspiration. Urine output is about 60-70 mL an hour. Vital signs are stable. General: The patient appeared well nourished and normally developed. HEENT: Head exam is unremarkable. Neck is without jugular venous distension. LUNGS: Lungs are clear to auscultation and percussion. Breath sounds decreased. HEART: Rate and Rhythm are regular. First and second heart sounds normal. No murmurs, rubs or gallops. ABDOMEN: Abdominal exam reveals normal bowel sounds. Non-tender and non- distended. No evidence of peritonitis. EXTREMITITES: No clubbing, cyanosis, or edema. Objective - Vital Signs Vital signs: Vital Signs Temp 97.6 F 04/03/17 08:00 Pulse 120 H 04/03/17 11:00 Resp 16 04/03/17 04:00 BP 146/73 04/03/17 11:00 Pulse Ox 96 04/03/17 11:00 Intake & Output 04/02/17 04/03/17 04/03/17 18:59 06:59 18:59 Intake Total 2525 2200 800 Output Total 1595 1035 335 Balance 930 1165 465 Weight 91 kg 92.1 kg 92.1 kg Intake: Intake, IV Titration 2450 2200 800 Amount 0.45% NaCl with KCl 20 400 800 Meq/l 1,000 ml @ 200 mls/ hr IV .Q5H [facility]OMAS Rx#: [id number] 0.9% NaCl with KCl 20 Meq 200 600 /l 1,000 ml @ 200 mls/hr IV .Q5H [facility]OMAS Rx#:[id number] Potassium Chloride 20 meq 2250 In Sodium Chloride 0.9% 100 ml @ 50 mls/hr IVPB Q2HR [facility]OMAS Rx#:[id number] Sodium Chloride 0.45% 1, 1200 000 ml @ 100 mls/hr IV . Q10H [facility]OMAS Rx#:[id number] Oral 75 Output: Urine 1595 1035 335 Other: Voiding Method Indwelling Catheter Indwelling Catheter Indwelling Catheter # Bowel Movements 1 - Labs CBC & Chem 7: 04/03/17 04:31 04/03/17 04:31 Labs: Abnormal Lab Results - Last 24 Hours (Table) 04/01/17 04/02/17 04/02/17 Range/Units 19:25 10:43 13:10 RBC (4.30-5.90) m/uL Hgb (13.0-17.5) gm/dL Hct (39.0-53.0) % MCV (80.0-100.0) fL MCH (25.0-35.0) pg RDW (11.5-15.5) % Neutrophils # (1.3-7.7) k/uL Lymphocytes # (1.0-4.8) k/uL Retic Count (0.5-2.0) % Sodium (137-145) mmol/L Chloride (98-107) mmol/L BUN (9-20) mg/dL Creatinine (0.66-1.25) mg/dL Glucose (74-99) mg/dL Calcium (8.4-10.2) mg/dL Ionized Calcium Elinor (4.5-5.3) mg/dL Phosphorus (2.5-4.5) mg/dL Creatine Kinase 746 H (55-170) U/L Total Protein (PEP) 9.9 H (6.2-8.2) g/dL U Random Total Protein 43 H (<12) mg/dL 04/02/17 04/02/17 04/03/17 Range/Units 17:18 19:06 04:31 RBC 2.53 L (4.30-5.90) m/uL Hgb 9.0 L (13.0-17.5) gm/dL Hct 27.8 L (39.0-53.0) % MCV 109.9 H (80.0-100.0) fL MCH 35.5 H (25.0-35.0) pg RDW 16.4 H (11.5-15.5) % Neutrophils # 9.2 H (1.3-7.7) k/uL Lymphocytes # 0.7 L (1.0-4.8) k/uL Retic Count (0.5-2.0) % Sodium 150 H (137-145) mmol/L Chloride 110 H (98-107) mmol/L BUN 40 H (9-20) mg/dL Creatinine 2.60 H (0.66-1.25) mg/dL Glucose 130 H (74-99) mg/dL Calcium >14.0 H* 16.6 H* (8.4-10.2) mg/dL Ionized Calcium Elinor 9.1 H* (4.5-5.3) mg/dL Phosphorus (2.5-4.5) mg/dL Creatine Kinase (55-170) U/L Total Protein (PEP) (6.2-8.2) g/dL U Random Total Protein (<12) mg/dL 04/03/17 04/03/17 Range/Units 04:31 04:31 RBC (4.30-5.90) m/uL Hgb (13.0-17.5) gm/dL Hct (39.0-53.0) % MCV (80.0-100.0) fL MCH (25.0-35.0) pg RDW (11.5-15.5) % Neutrophils # (1.3-7.7) k/uL Lymphocytes # (1.0-4.8) k/uL Retic Count 2.7 H (0.5-2.0) % Sodium 147 H (137-145) mmol/L Chloride 110 H (98-107) mmol/L BUN 43 H (9-20) mg/dL Creatinine 2.80 H (0.66-1.25) mg/dL Glucose 120 H (74-99) mg/dL Calcium 15.4 H* (8.4-10.2) mg/dL Ionized Calcium Elinor 8.6 H* (4.5-5.3) mg/dL Phosphorus 2.3 L (2.5-4.5) mg/dL Creatine Kinase 330 H (55-170) U/L Total Protein (PEP) (6.2-8.2) g/dL U Random Total Protein (<12) mg/dL Assessment and Plan Plan: Assessment: #1. Nonoliguric acute kidney injury secondary to ATN secondary to hypercalcemia. Creatinine stable at 2.8. No evidence of hydronephrosis noted on renal ultrasound. #2. Hypercalcemia likely related to underlying malignancy. I don't see any calcium or vitamin D supplements and his home medications. PTH appropriately on the lower side. #3. Hypokalemia from renal potassium wasting. Magnesium also little bit on the lower side. Improved post replacement. #4. History of hypertension. Currently controlled. #5. Hypernatremia secondary to lack of oral water intake. Improving. #6. Mild hypophosphatemia due to poor nutritional status. Plan: Continue half normal saline to be run at 200 mL an hour. Status post 60 mg IV pamidronate on April 01 - this will take 3-4 days before taking its peak effect. Continue calcitonin 6 international units per kilogram every 8 hours IM. 20 mmol K-Phos IV today. Check BMP this evening. Follow-up electrophoresis studies, vitamin D, 1,25 D3 as well as CHICO levels. Avoid nephrotoxic agents and hypotensive episodes. Oncology also following. Potential bone marrow biopsy tomorrow.
[2017-04-03] MEDS: METOPROLOL TARTRATE 5 MG/5 ML VIAL IVP SCH (11:14)
--- NOTE | 2017-04-03 12:47 | P.PN ---
Progress Note - Text Progress Note Date: 04/03/17 DATE OF SERVICE: 04/03/2017 PRESENTING COMPLAINT: Fall HISTORY OF PRESENT ILLNESS: 82-year-old male who sustained a fall in the bathroom at all 4 AM presented to the emergency department for further evaluation. Patient was confused, had multiple laboratory abnormalities, primarily creatinine kinase 4399, potassium 2.7, creatinine of 2.81 and calcium at 20.8. Admitted for further evaluation and treatment of these abnormalities as well as back pain. INTERVAL HISTORY: 04/03/2017: Lying in bed somewhat lethargic has difficulty recognizing his . Aggressive fluid resuscitation continues with half normal saline at 200 mL an hour. Had difficulty swallowing his pills was made nothing by mouth, pending swallow evaluation. Status post pamidronate will take 3-4 days before recognizing its peak effect. Calcitonin 6 international units per kilogram every 8 hours IM, 20 mmol of K-Phos IV. Await studies for multiple myeloma. 04/02/2017 Lying in bed, somewhat lethargic, aggressive fluid resuscitation continues, received calcitonin, and pamidronate with very small amount of improvement in the calcium level. Creatinine is unchanged 2.8. Skeletal series revealed generalized osteopenia marked degenerative spine changes at all levels and a mild L3 vertebral body compression fracture. Multiple myeloma workup is pending as are parathyroid hormone levels. Ultrasound of the kidneys show no evidence of hydronephrosis. Await additional input from oncology. Appetite is poor, patient is not eating much of any meals. at the bedside states that this is how it's been for about the past 30 days. Last BM prior to admission. REVIEW OF SYSTEMS: Done for constitutional ,cardiovascular, GI, pulmonary with relevant findings as above. CURRENT MEDICATIONS [place], Norvasc, Dulcolax, Miacalcin, clonidine, Cardura, Proscar, hydralazine, Lopressor, Protonix, thiamine, Ultram. PHYSICAL EXAM VITAL SIGNS: Temperature 97.6, pulse 102, respiratory rate 16, blood pressure 129/69, oxygen saturation 97% on 2 L. GENERAL APPEARANCE: Lying in bed, lethargic yet arousable. HENT: Normocephalic, JVD not raised. Mass not palpable. Oral cavity dry, external appearance of ears and nose normal. EYES:Pupils equal. Conjunctiva normal. RESPIRATORY: Respiratory effort normal. Lungs diminished to auscultation. CARDIOVASCULAR: First and second sounds normal. No edema. ABDOMEN: Soft. Liver and spleen not palpable. No tenderness. No mass palpable. PSYCHIATRY: Alert and oriented 1-2. Mood and affect lethargic. INVESTIGATIONS: Hemoglobin 9.0, sodium 147, chloride 110, BUN 43, creatinine 2.80, ionized calcium 8.6, phosphorus 2.3, creatinine kinase 330, TSH 0.685 lactate dehydrogenase 509, 24 hour urine in process ASSESSMENT: --Acute kidney injury severe possibly due to acute tubular necrosis, slow to respond -Acute severe hypercalcemia cause unclear with multiple myeloma in the differential, slow to respond -Acute metabolic encephalopathy multifactorial including renal failure, hypercalcemia, hypokalemia, slow to respond -Mild hypophosphatemia secondary to poor nutritional intake, slow to respond -Medical debility, multifactorial -Acute hypokalemia secondary to decreased oral intake, corrected -Compression fracture of the lumbar spine at the level of L3-L4 and L5 along with possibility of lytic lesions, extensive demineralization of bones and lumbar spine. -Chronic low back pain from compression fractures of lumbar spine at L3, L4, L5 -Coronary artery disease with prior history of stent -Persistent atrial fibrillation -Essential hypertension -Benign prostatic hypertrophy -Hypernatremia, likely from free water deficit slow to respond PLAN: Continue normal saline at 200 mL an hour, calcitonin increased per nephrology, continue electrolyte with follow-up BMP. Await serum protein electrophoresis and immune electrophoresis and oncology planning possible bone marrow biopsy on Tuesday. 24-hour urine in process await those results. Plan of care discussed at the bedside with family they are in agreement. We will follow closely. [employer] statement: Patient was seen and examined by nurse practitioner Sydney García and all elements of the case discussed with attending Dr. Newsome
[2017-04-03] MEDS: THIAMINE 100 MG TAB PO SCH (13:46)
--- NOTE | 2017-04-03 14:12 | P.PN ---
Subjective Progress Note Date: 04/03/17 Principal diagnosis: Hypercalcemia Pt's calcium better, down to 15. Hgb down to 9. Objective - Vital Signs Vital signs: Vital Signs Temp 97.6 F 04/03/17 08:00 Pulse 97 04/03/17 09:30 Resp 16 04/03/17 04:00 BP 118/64 04/03/17 09:30 Pulse Ox 98 04/03/17 09:30 Intake & Output 04/02/17 04/03/17 04/03/17 18:59 06:59 18:59 Intake Total 2525 2200 600 Output Total 1595 1035 60 Balance 930 1165 540 Weight 91 kg 92.1 kg 92.1 kg Intake: Intake, IV Titration 2450 2200 600 Amount 0.45% NaCl with KCl 20 400 600 Meq/l 1,000 ml @ 200 mls/ hr IV .Q5H [facility] Rx#: [id number] 0.9% NaCl with KCl 20 Meq 200 600 /l 1,000 ml @ 200 mls/hr IV .Q5H [facility] Rx#:[id number] Potassium Chloride 20 meq 2250 In Sodium Chloride 0.9% 100 ml @ 50 mls/hr IVPB Q2HR [facility] Rx#:[id number] Sodium Chloride 0.45% 1, 1200 000 ml @ 100 mls/hr IV . Q10H [facility] Rx#:[id number] Oral 75 Output: Urine 1595 1035 60 Other: Voiding Method Indwelling Catheter Indwelling Catheter Indwelling Catheter # Bowel Movements 1 - Exam Vital signs stable. Afebrile. Gen.: No acute distress. Generalized tremors. HEENT: Mucosa moist. Lymph nodes: No cervical or supraclavicular lymphadenopathy. Neck: Supple. Lungs: CTA-B without wheezing or rhonchi. Heart: RRR without murmurs. No lower extremity edema. Abdomen: Soft, nontender, nondistended, with positive bowel sounds. MSK: 4/4 strength in all 4 extremities. Neuro: Alert and oriented 3. Somewhat difficult to understand however and drowsy. No obvious gross neurologic deficits. Skin: No obvious rash or jaundice. Psych: Appropriate affect. - Labs CBC & Chem 7: 04/03/17 04:31 04/03/17 04:31 Labs: Abnormal Lab Results - Last 24 Hours (Table) 0104/02/17 04/02/17 Range/Units 19:25 10:43 13:10 RBC (4.30-5.90) m/uL Hgb (13.0-17.5) gm/dL Hct (39.0-53.0) % MCV (80.0-100.0) fL MCH (25.0-35.0) pg RDW (11.5-15.5) % Neutrophils # (1.3-7.7) k/uL Lymphocytes # (1.0-4.8) k/uL Sodium (137-145) mmol/L Chloride (98-107) mmol/L BUN (9-20) mg/dL Creatinine (0.66-1.25) mg/dL Glucose (74-99) mg/dL Calcium (8.4-10.2) mg/dL Ionized Calcium Elinor (4.5-5.3) mg/dL Phosphorus (2.5-4.5) mg/dL Creatine Kinase 746 H (55-170) U/L Total Protein (PEP) 9.9 H (6.2-8.2) g/dL U Random Total Protein 43 H (<12) mg/dL 04/02/17 04/02/17 04/03/17 Range/Units 17:18 19:06 04:31 RBC 2.53 L (4.30-5.90) m/uL Hgb 9.0 L (13.0-17.5) gm/dL Hct 27.8 L (39.0-53.0) % MCV 109.9 H (80.0-100.0) fL MCH 35.5 H (25.0-35.0) pg RDW 16.4 H (11.5-15.5) % Neutrophils # 9.2 H (1.3-7.7) k/uL Lymphocytes # 0.7 L (1.0-4.8) k/uL Sodium 150 H (137-145) mmol/L Chloride 110 H (98-107) mmol/L BUN 40 H (9-20) mg/dL Creatinine 2.60 H (0.66-1.25) mg/dL Glucose 130 H (74-99) mg/dL Calcium >14.0 H* 16.6 H* (8.4-10.2) mg/dL Ionized Calcium Elinor 9.1 H* (4.5-5.3) mg/dL Phosphorus (2.5-4.5) mg/dL Creatine Kinase (55-170) U/L Total Protein (PEP) (6.2-8.2) g/dL U Random Total Protein (<12) mg/dL 04/03/17 Range/Units 04:31 RBC (4.30-5.90) m/uL Hgb (13.0-17.5) gm/dL Hct (39.0-53.0) % MCV (80.0-100.0) fL MCH (25.0-35.0) pg RDW (11.5-15.5) % Neutrophils # (1.3-7.7) k/uL Lymphocytes # (1.0-4.8) k/uL Sodium 147 H (137-145) mmol/L Chloride 110 H (98-107) mmol/L BUN 43 H (9-20) mg/dL Creatinine 2.80 H (0.66-1.25) mg/dL Glucose 120 H (74-99) mg/dL Calcium 15.4 H* (8.4-10.2) mg/dL Ionized Calcium Elinor 8.6 H* (4.5-5.3) mg/dL Phosphorus 2.3 L (2.5-4.5) mg/dL Creatine Kinase 330 H (55-170) U/L Total Protein (PEP) (6.2-8.2) g/dL U Random Total Protein (<12) mg/dL Assessment and Plan Assessment: #1 hypercalcemia of unclear etiology #2 acute kidney injury due to dehydration and hypercalcemia #3 anemia, macrocytic, worsening due to dilution #4 leukocytosis, likely stress related #5 altered mentation likely due to hypercalcemia Plan: Mr. Rodas is a very pleasant 82-year-old gentleman is here for confusion due to hypercalcemia and acute kidney injury. His calcium is significantly elevated at 20 with improvement to 15 with aggressive treatment with hydration, Pamidronate, and calcitonin. Nephrology managing in ICU. His bone survey is unremarkable for any lytic lesions. CXR was also negative for obvious lung mass. He did have a borderline low PTH. Vitamin D is still pending as well as PTHrp and protein electrophoresis. UPEP and FLCR pending. Agree with aggressive hydration and hypercalcemia management as per nephrology. Will send for anemia work up. He likely will need a bone marrow biopsy early this week. We'll continue to monitor with you.
--- NOTE | 2017-04-03 16:03 | P.PN ---
Subjective Progress Note Date: 04/03/17 This is a 82-year-old male patient with known history of coronary artery disease with previous PCI, chronic atrial fibrillation, hypertension and hyperlipidemia, and osteoarthritis, who came into the emergency department very lethargic and weak. Apparently the patient was becoming progressively more weak and dizzy and he had a fall that occurred around 4 AM when the patient was trying to go to the bathroom. Patient states that he lost balance and he fell. He denies having any significant injuries. No head injury. He stated that he has chronic back pain and the back and has essentially been unchanged. The patient was brought into the hospital and he was seen and burst department he was found to have significant abnormalities in his blood work and electrolytes. Specifically the patient was found to be anemic with a hemoglobin of 9.8, the patient was found to have a PTT of 200 knowing that he is on oral anticoagulation with Eliquis, he was found to be hypokalemic with a potassium level of 2.2, he was an acute kidney injury with a creatinine of 3.0, his serum calcium level was 20.3 with an ionized calcium of 10.2 and a phosphorus level of 2.6 and a magnesium 1.8 and an alkaline phosphatase of 84 with a CPK of 4399 and troponin was 0.247. The patient's total serum protein was 10.4 and albumin was 4.0. Note that the patient was being investigated for back pain and had undergone a CAT scan of the lumbosacral spine on 02/22/2017 and he was found to have multi leveled compressive deformities including the greatest at the level of L3 with approximately 50% loss of the mid vertebral body height. There was also compression at the level of L4 and endplates of L2 and superior endplates of L1 and also poses was also present and possibility of underlying lytic lesions were also included and suspected. There is also evidence of spinal canal stenosis at the level of L4-L5. A bone scan that was done on 03/04/2017 showed demineralization that was diffuse without any evidence of an acute or subacute fractures. [facility]. He was given [place] for pain control which made him more confused and lethargic. At this point in time he is on IV fluids. He is receiving 200 mL an hour of normal saline along with potassium replacement. The patient is also on alendronate 60 mg IV. On 04/02/2017 I'm seeing this patient for a follow-up. As mentioned yesterday the patient was Hospital as for an acute hypercalcemia and electrode disturbance and acute kidney injury. The patient was resuscitated aggressively with IV fluids and he was receiving 200 mL of normal saline hourly basis. He is producing adequate amount of urine output which is estimated to be more than 70 mL an hourly basis. The patient also received IV pamidronate and the patient received calcitonin. There is a modest improvement in the calcium level which is down to 18.4. Creatinine is also unchanged at 2.8. Patient is still lethargic, confused, and somewhat debilitated. Skeletal series were obtained and the patient was found to have generalized osteopenia marked degenerative spine changes at all levels and mild L3 vertebral body compression fracture. The myeloma workup was initiated and the workup is still pending. PTH levels are also pending. Ultrasound the kidneys showed no evidence of hydronephrosis. Note that urinalysis is also failed to show any significant proteinuria. Nephrology is on the case. Awaiting the myeloma workup. Awaiting an oncology consultation. On 04/03/2017, I'm seeing this patient for a follow-up. Slightly more awake and alert compared to yesterday. Calcium level has been gradually improving is down to 15. The patient remains on normal state rate of 200 mL an hour. This morning he was switched to half-normal saline knowing that his sodium level has been quite elevated at 150. Most recent calcium level is at 15.4. Potassium has been also replace is up to 3.8. Hemoglobin is at 9.0 minutes currently stable. The patient is resting comfortably in bed. When he wakes up he complains of pain throughout his body. He is still on that investigation. Serum protein electrophoresis and immunofixation is still pending for now. Oncology developed this patient and the patient is being also considered for a bone marrow biopsy with the next 24-48 hours. He is afebrile. He is having rapid ventricular response regarding his atrial fibrillation and his heart rate is ranging between 108 and 1:30. He is producing adequate amount of urine output. Pulse ox 98% on room air. Objective - Vital Signs Vital signs: Vital Signs Temp 97.6 F 04/03/17 08:00 Pulse 137 H 04/03/17 15:00 Resp 16 04/03/17 04:00 BP 140/90 01/28/18 15:00 Pulse Ox 98 04/03/17 15:00 Intake & Output 04/02/17 04/03/17 04/03/17 18:59 06:59 18:59 Intake Total 2525 2200 1700 Output Total 1595 1035 705 Balance 930 1165 995 Weight 91 kg 92.1 kg 92.1 kg Intake: Intake, IV Titration 2450 2200 1700 Amount 0.45% NaCl with KCl 20 400 1700 Meq/l 1,000 ml @ 200 mls/ hr IV .Q5H [facility]OM[facility] Rx#: [id number] 0.9% NaCl with KCl 20 Meq 200 600 /l 1,000 ml @ 200 mls/hr IV .Q5H [facility] Rx#:[id number] Potassium Chloride 20 meq 2250 In Sodium Chloride 0.9% 100 ml @ 50 mls/hr IVPB Q2HR [facility]OM[facility] Rx#:[id number] Sodium Chloride 0.45% 1, 1200 000 ml @ 100 mls/hr IV . Q10H [facility] Rx#:[id number] Oral 75 Output: Urine 1595 1035 705 Other: Voiding Method Indwelling Catheter Indwelling Catheter Indwelling Catheter # Bowel Movements 1 - Exam Patient is lethargic and confused resting comfortably in bed. He cannot answer simple questions. He moans. He seems to be in moderate degree of pain. Head is atraumatic normocephalic.Head exam was generally normal. There was no scleral icterus or corneal arcus. Mucous membranes were moist.Neck was supple and without jugular venous distension, thyromegaly, or carotid bruits. Carotids were easily palpable bilaterally. There was no adenopathy. Mucous membranes are dry. Lung sounds are diminished bilaterally otherwise they're clear. There is no wheezes overall currently crackles.Cardiac exam revealed the PMI to be normally situated and sized. The rhythm was regular and no extrasystoles were noted during several minutes of auscultation. The first and second heart sounds were normal and physiologic splitting of the second heart sound was noted. There were no murmurs, rubs, clicks, or gallops.Abdominal exam revealed normal bowel sounds. The abdomen was soft, non-tender, and without masses, organomegaly, or appreciable enlargement of the abdominal aorta.Examination of the extremities revealed easily palpable radial, femoral and pedal pulses. There was no cyanosis, clubbing or edema.Examination of the skin revealed no evidence of significant rashes, suspicious appearing nevi or other concerning lesions. Neurologically the patient is confused and he has diminished level of consciousness. He withdraws to painful stimuli. Cranial nerves are intact. - Labs CBC & Chem 7: 04/03/17 04:31 04/03/17 04:31 Labs: Abnormal Lab Results - Last 24 Hours (Table) 04/02/17 04/02/17 04/03/17 Range/Units 17:18 19:06 04:31 RBC 2.53 L (4.30-5.90) m/uL Hgb 9.0 L (13.0-17.5) gm/dL Hct 27.8 L (39.0-53.0) % MCV 109.9 H (80.0-100.0) fL MCH 35.5 H (25.0-35.0) pg RDW 16.4 H (11.5-15.5) % Neutrophils # 9.2 H (1.3-7.7) k/uL Lymphocytes # 0.7 L (1.0-4.8) k/uL Retic Count (0.5-2.0) % Sodium 150 H (137-145) mmol/L Chloride 110 H (98-107) mmol/L BUN 40 H (9-20) mg/dL Creatinine 2.60 H (0.66-1.25) mg/dL Glucose 130 H (74-99) mg/dL Calcium >14.0 H* 16.6 H* (8.4-10.2) mg/dL Ionized Calcium Elinor 9.1 H* (4.5-5.3) mg/dL Phosphorus (2.5-4.5) mg/dL Creatine Kinase (55-170) U/L 04/03/17 04/03/17 Range/Units 04:31 04:31 RBC (4.30-5.90) m/uL Hgb (13.0-17.5) gm/dL Hct (39.0-53.0) % MCV (80.0-100.0) fL MCH (25.0-35.0) pg RDW (11.5-15.5) % Neutrophils # (1.3-7.7) k/uL Lymphocytes # (1.0-4.8) k/uL Retic Count 2.7 H (0.5-2.0) % Sodium 147 H (137-145) mmol/L Chloride 110 H (98-107) mmol/L BUN 43 H (9-20) mg/dL Creatinine 2.80 H (0.66-1.25) mg/dL Glucose 120 H (74-99) mg/dL Calcium 15.4 H* (8.4-10.2) mg/dL Ionized Calcium Elinor 8.6 H* (4.5-5.3) mg/dL Phosphorus 2.3 L (2.5-4.5) mg/dL Creatine Kinase 330 H (55-170) U/L Assessment and Plan Plan: Assessment 1 acute hypercalcemia with a clinical presentation which is very highly suspicious for multiple myeloma. The patient presents in with hyperproteinemia , acute hypercalcemia, acute kidney failure, compression fracture of the lumbar spine at the level of L3-L4 5 and possibility of some lytic lesions involving the spine. The patient is currently being resuscitated IV fluids and the patient is receiving calcitonin and he has also received 60 mg of pamidronate. Within the past 48 hours, the calcium level has diminished to come down to 15.4. Potassium level has also been normalized. Awaiting serum protein phoresis results and immunofixation. I'll Cardizem the case. Consider bone marrow biopsy. Meanwhile, the patient is being hydrated aggressively. 2 change in mental status secondary to above. The patient presented with severe dehydration and severe electrode disturbance with hypercalcemia and hypokalemia and addition to a mild component of rhabdomyolysis, clinically improving on today's evaluation and seems to be a bit more awake compared to yesterday. 3 generalized weakness and fall secondary to above 4 acute rhabdomyolysis secondary to above 5 acute hypokalemia, replaced 6 compression fracture of the lumbar spine at the level of L3-L4 and L5 along with possibility of lytic lesions and the patient has extensive demineralization of the bones and lumbar spine 7 chronic back pain 8 coronary artery disease 9 chronic atrial fibrillation 10 acute coagulopathy probably related to varicose toxicity. The patient does not have any signs of bleeding 11 acute kidney injury/kidney failure. Rule out myeloma kidney. Rule out prerenal factors secondary to dehydration 12 BPH 13 diverticular disease with benign colonic polyps and hemorrhoids 14 diffuse osteopenia Plan Continue the fluid resuscitation. Agree on scheduled IV fluids to half-normal saline based on development of some mild hyponatremia. Continue monitoring the calcium level. Continue calcitonin. Awaiting results of the serum protein electrophoresis on immunotherapy and immunofixation. Oncology on the case and consider a bone marrow biopsy. Metoprolol for heart rate control. Clonidine patch. Aspiration precautions. Pain control. We'll continue to follow.
[2017-04-03 17:09] LABS: Folate, Serum 12.4 ng/mL; Iron Saturation 12.06 (15.00-50.00)
[2017-04-03 17:34] LABS: Potassium 4.5 mmol/L (3.5-5.1)
[2017-04-03 17:36] LABS: Calcium 13.7 mg/dL (8.4-10.2)
[2017-04-03 19:48] LABS: Ionized Calcium 7.8 mg/dL (4.5-5.3)
--- NOTE | 2017-04-03 20:15 | PN ---
PROGRESS NOTE DATE OF SERVICE: 04/03/17. ATTENDING NOTE: Patient seen and examined by me. Discussed with my nurse practitioner, Ricky. Patient admitted with severe hypercalcemia, multiple myeloma. Labs are pending. Patient remains lethargic, barely eating. PHYSICAL EXAMINATION: On examination, afebrile, pulse 120s, blood pressure 109/64. Lying in bed, lethargic but arousable. The patient does state his name but then dozes off easily. INVESTIGATIONS: White count 10.5, hemoglobin 9, sodium 147, potassium 3.8, BUN 43, creatinine 2.80, calcium is 15.4, ionized is 8.6. ASSESSMENT: 1. Acute kidney injury, severe, possibly acute tubular necrosis, slow to respond. 2. Acute severe hypercalcemia, cause unclear with multiple myeloma being worked up slow to respond. 3. Acute metabolic encephalopathy, multifactorial, slow to respond. PLAN: At this point, continue with hydration. I spoke to Dr. Fried from Hematology. If nothing concrete shows for multiple myeloma tomorrow, may have to proceed with a bone marrow. Meantime patient did get IV pamidronate and calcitonin calcitonin. Sodium has just about started to come down. Prognosis guarded. MMODL / IJN: [id number] /
[2017-04-03] MEDS: DOXAZOSIN 4 MG TAB PO SCH (20:34)
[2017-04-04] MEDS: DILTIAZEM 125 MG in SODIUM CHLORIDE 0.9% 100 ML IV SCH (00:31)
[2017-04-04] MEDS: CALCITONIN INJ 200 UNIT/ML (MDV) VIAL IM SCH ×3 (00:44→23:08)
[2017-04-04] MEDS: 0.45% NACL WITH KCL 20 MEQ/L 1,000 ML IV SCH ×2 (03:22→07:35)
[2017-04-04 05:13] LABS: Anisocytosis Slight; Basophils % (A) 0 %; Eosinophils # (A) 0.1 k/uL (0-0.7); Eosinophils % (A) 1 %; HCT 24.6 % (39.0-53.0); HGB 8.1 gm/dL (13.0-17.5); Hypochromasia Slight; Lymphocytes % (A) 12 %; MCH 36.1 pg (25.0-35.0); MCV 109.2 fL (80.0-100.0); Macrocytosis Marked; Mean Platelet Volume 7.8; Monocytes # (A) 0.4 k/uL (0-1.0); Monocytes % (A) 4 %; Neutrophils # (A) 6.6 k/uL (1.3-7.7); Neutrophils % (A) 81 %; Platelet Count 216 k/uL (150-450); RBC 2.26 m/uL (4.30-5.90); RDW 17.3 % (11.5-15.5); WBC 8.1 k/uL (3.8-10.6)
[2017-04-04 05:25] LABS: Angiotensin-1 Converting Enz. 8 U/L (8-52)
[2017-04-04 05:41] LABS: Calcium 12.8 mg/dL (8.4-10.2); Potassium 4.8 mmol/L (3.5-5.1)
[2017-04-04] MEDS: cloNIDine HCL 0.1 MG TAB PO SCH ×2 (07:36→21:18)
[2017-04-04] MEDS: FINASTERIDE 5 MG TAB PO SCH (07:36)
--- NOTE | 2017-04-04 07:55 | PCN ---
PROCEDURE NOTE This patient was admitted with acute hypercalcemia. Patient is being admitted with a diagnosis of possible multiple myeloma. The patient remains in atrial fibrillation with a heart rate of 120 to 130 beats per minute. The patient is afebrile. He also remains lethargic, unable to really take oral medications. Blood pressure is 140/90 mmHg. First and second heart sounds are normal. Lungs are fairly clear to auscultation and percussion. Patient's hemoglobin is 9.0. Electrolytes are normal. The patient's calcium is 13.7. Patient is currently getting IV Lopressor q.6 hours hourly. Patient's heart rate remained fairly well controlled. We will continue the current medications. MMODL / IJN: [id number] /
[2017-04-04] MEDS: PANTOPRAZOLE 40 MG/10 ML VIAL IV SCH (09:00)
--- NOTE | 2017-04-04 09:27 | P.PN ---
Subjective Patient is seen in follow-up for acute kidney injury. Creatinine in October 2013 was 0.85. This admission it has been stable in the range of 2.6-3. Patient was noted to be severely hypercalcemic with calcium level greater than 20. He is maintained on calcitonin every 8 hours and calcium level is down to 12.8 this morning. He is currently maintained on half normal saline at 200 mL an hour. He is more awake and alert today but still quite lethargic overall. He is nothing by mouth due to risk for aspiration. He is nonoliguric. Patient was also noted to be in atrial fibrillation yesterday and also became quite bradycardic at times. He is now maintained on a Cardizem drip. Vital signs are stable. General: The patient appeared well nourished and normally developed. HEENT: Head exam is unremarkable. Neck is without jugular venous distension. LUNGS: Lungs are clear to auscultation and percussion. Breath sounds decreased. HEART: Rate and Rhythm are regular. First and second heart sounds normal. No murmurs, rubs or gallops. ABDOMEN: Abdominal exam reveals normal bowel sounds. Non-tender and non- distended. No evidence of peritonitis. EXTREMITITES: No clubbing, cyanosis, or edema. Objective - Vital Signs Vital signs: Vital Signs Temp 98.4 F 04/04/17 04:00 Pulse 102 H 04/04/17 08:30 Resp 24 04/04/17 08:30 BP 125/72 04/04/17 08:30 Pulse Ox 85 L 04/04/17 08:30 Intake & Output 04/03/17 04/04/17 04/04/17 18:59 06:59 18:59 Intake Total 2300 2400 400 Output Total 855 1000 150 Balance 1445 1400 250 Weight 92.1 kg 93.6 kg Intake: IV 2200 200 0.45% NaCl with KCl 20 2200 200 Meq/l 1,000 ml @ 200 mls/ hr IV .Q5H [facility] Rx#: [id number] Intake, IV Titration 2300 200 200 Amount 0.45% NaCl with KCl 20 2300 200 200 Meq/l 1,000 ml @ 200 mls/ hr IV .Q5H [facility] Rx#: [id number] Output: Urine 855 1000 150 Other: Voiding Method Indwelling Catheter Indwelling Catheter Indwelling Catheter - Labs CBC & Chem 7: 04/04/17 04:46 04/04/17 04:46 Labs: Abnormal Lab Results - Last 24 Hours (Table) 04/02/17 04/03/17 04/03/17 Range/Units 10:43 04:31 17:04 RBC (4.30-5.90) m/uL Hgb (13.0-17.5) gm/dL Hct (39.0-53.0) % MCV (80.0-100.0) fL MCH (25.0-35.0) pg RDW (11.5-15.5) % Retic Count 2.7 H (0.5-2.0) % Sodium 146 H (137-145) mmol/L Chloride 111 H (98-107) mmol/L BUN 47 H (9-20) mg/dL Creatinine 2.40 H (0.66-1.25) mg/dL Glucose 109 H (74-99) mg/dL Calcium 13.7 H* (8.4-10.2) mg/dL Ionized Calcium Elinor 7.8 H* (4.5-5.3) mg/dL Iron 24 L (65-175) ug/dL TIBC 199 L (228-460) ug/dL Iron Saturation 12.06 L (15.00-50.00) Ferritin 1552.5 H (22.0-322.0) ng/mL 04/04/17 04/04/17 Range/Units 04:46 04:46 RBC 2.26 L (4.30-5.90) m/uL Hgb 8.1 L (13.0-17.5) gm/dL Hct 24.6 L (39.0-53.0) % MCV 109.2 H (80.0-100.0) fL MCH 36.1 H (25.0-35.0) pg RDW 17.3 H (11.5-15.5) % Retic Count (0.5-2.0) % Sodium 146 H (137-145) mmol/L Chloride 111 H (98-107) mmol/L BUN 50 H (9-20) mg/dL Creatinine 2.80 H (0.66-1.25) mg/dL Glucose (74-99) mg/dL Calcium 12.8 H (8.4-10.2) mg/dL Ionized Calcium Elinor (4.5-5.3) mg/dL Iron (65-175) ug/dL TIBC (228-460) ug/dL Iron Saturation (15.00-50.00) Ferritin (22.0-322.0) ng/mL Assessment and Plan Plan: Assessment: #1. Nonoliguric acute kidney injury secondary to ATN secondary to hypercalcemia and hemodynamic instability. Creatinine stable at 2.8. No evidence of hydronephrosis noted on renal ultrasound. #2. Hypercalcemia likely related to underlying malignancy. I don't see any calcium or vitamin D supplements and his home medications. PTH appropriately on the lower side. Vitamin D level XXXIII. #3. Hypokalemia from renal potassium wasting. Magnesium also little bit on the lower side. Improved post replacement. #4. History of hypertension. Currently controlled. #5. Hypernatremia secondary to lack of oral water intake. Improving. #6. Mild hypophosphatemia due to poor nutritional status. Status post replacement. Plan: Continue half normal saline to be run at 200 mL an hour. Discontinue potassium supplementation. Status post 60 mg IV pamidronate on April 01 - this will take 3-4 days before taking its peak effect. Decrease calcitonin 6 international units per kilogram to every 12 hours IM. Recheck phosphorus level. Follow-up electrophoresis studies, 1,25 D3 as well as [place] levels. Avoid nephrotoxic agents and hypotensive episodes. Oncology also following. Potential bone marrow biopsy soon.
[2017-04-04] MEDS: SODIUM CHLORIDE 0.45% 1,000 ML IV SCH ×3 (09:46→21:17)
--- NOTE | 2017-04-04 10:04 | P.PN ---
Subjective Progress Note Date: 04/04/17 Principal diagnosis: Acute hypercalcemia This is a 82-year-old male patient with known history of coronary artery disease with previous PCI, chronic atrial fibrillation, hypertension and hyperlipidemia, and osteoarthritis, who came into the emergency department very lethargic and weak. Apparently the patient was becoming progressively more weak and dizzy and he had a fall that occurred around 4 AM when the patient was trying to go to the bathroom. Patient states that he lost balance and he fell. He denies having any significant injuries. No head injury. He stated that he has chronic back pain and the back and has essentially been unchanged. The patient was brought into the hospital and he was seen and burst department he was found to have significant abnormalities in his blood work and electrolytes. Specifically the patient was found to be anemic with a hemoglobin of 9.8, the patient was found to have a PTT of 200 knowing that he is on oral anticoagulation with Eliquis, he was found to be hypokalemic with a potassium level of 2.2, he was an acute kidney injury with a creatinine of 3.0, his serum calcium level was 20.3 with an ionized calcium of 10.2 and a phosphorus level of 2.6 and a magnesium 1.8 and an alkaline phosphatase of 84 with a CPK of 4399 and troponin was 0.247. The patient's total serum protein was 10.4 and albumin was 4.0. Note that the patient was being investigated for back pain and had undergone a CAT scan of the lumbosacral spine on 02/22/2017 and he was found to have multi leveled compressive deformities including the greatest at the level of L3 with approximately 50% loss of the mid vertebral body height. There was also compression at the level of L4 and endplates of L2 and superior endplates of L1 and also poses was also present and possibility of underlying lytic lesions were also included and suspected. There is also evidence of spinal canal stenosis at the level of L4-L5. A bone scan that was done on 03/04/2017 showed demineralization that was diffuse without any evidence of an acute or subacute fractures. [facility]. He was given [place] for pain control which made him more confused and lethargic. At this point in time he is on IV fluids. He is receiving 200 mL an hour of normal saline along with potassium replacement. The patient is also on alendronate 60 mg IV. On 04/02/2017 I'm seeing this patient for a follow-up. As mentioned yesterday the patient was Hospital as for an acute hypercalcemia and electrode disturbance and acute kidney injury. The patient was resuscitated aggressively with IV fluids and he was receiving 200 mL of normal saline hourly basis. He is producing adequate amount of urine output which is estimated to be more than 70 mL an hourly basis. The patient also received IV pamidronate and the patient received calcitonin. There is a modest improvement in the calcium level which is down to 18.4. Creatinine is also unchanged at 2.8. Patient is still lethargic, confused, and somewhat debilitated. Skeletal series were obtained and the patient was found to have generalized osteopenia marked degenerative spine changes at all levels and mild L3 vertebral body compression fracture. The myeloma workup was initiated and the workup is still pending. PTH levels are also pending. Ultrasound the kidneys showed no evidence of hydronephrosis. Note that urinalysis is also failed to show any significant proteinuria. Nephrology is on the case. Awaiting the myeloma workup. Awaiting an oncology consultation. On 04/03/2017, I'm seeing this patient for a follow-up. Slightly more awake and alert compared to yesterday. Calcium level has been gradually improving is down to 15. The patient remains on normal state rate of 200 mL an hour. This morning he was switched to half-normal saline knowing that his sodium level has been quite elevated at 150. Most recent calcium level is at 15.4. Potassium has been also replace is up to 3.8. Hemoglobin is at 9.0 minutes currently stable. The patient is resting comfortably in bed. When he wakes up he complains of pain throughout his body. He is still on that investigation. Serum protein electrophoresis and immunofixation is still pending for now. Oncology developed this patient and the patient is being also considered for a bone marrow biopsy with the next 24-48 hours. He is afebrile. He is having rapid ventricular response regarding his atrial fibrillation and his heart rate is ranging between 108 and 1:30. He is producing adequate amount of urine output. Pulse ox 98% on room air. Patient was reevaluated today on 04/04/2017, patient is confused, however his calcium has responded quite well over the last 24 hours, it is 12.8 today. BUN remains elevated at 50 creatinine is about the same at 2.80 hemoglobin is 8.1, platelets are normal. WBC count is 8.1. Patient received for his elevated calcium hydration, pamidronate, calcitonin. Serum protein electrophoresis is pending. The rest of the multiple myeloma workup is pending. Urine protein electrophoresis is also pending. Patient already received biphosphonate, and may or may not require bone marrow biopsy. Patient had to be placed on Cardizem for A. fib with RVR last night, remains on Cardizem, and that is being addressed by cardiology on the case. Patient seems to be hemodynamically stable. Has good urine output. Nephrology is still following. Objective - Vital Signs Vital signs: Vital Signs Temp 98.4 F 04/04/17 04:00 Pulse 94 04/04/17 09:30 Resp 21 04/04/17 09:30 BP 125/73 04/04/17 09:30 Pulse Ox 98 04/04/17 09:30 Intake & Output 04/03/17 04/04/17 04/04/17 18:59 06:59 18:59 Intake Total 2300 2400 600 Output Total 855 1000 425 Balance 1445 1400 175 Weight 92.1 kg 93.6 kg Intake: IV 2200 200 0.45% NaCl with KCl 20 2200 200 Meq/l 1,000 ml @ 200 mls/ hr IV .Q5H [facility] Rx#: [id number] Intake, IV Titration 2300 200 400 Amount 0.45% NaCl with KCl 20 2300 200 200 Meq/l 1,000 ml @ 200 mls/ hr IV .Q5H [facility] Rx#: [id number] Sodium Chloride 0.45% 1, 200 000 ml @ 200 mls/hr IV . Q5H [facility] Rx#:[id number] Output: Urine 855 1000 425 Other: Voiding Method Indwelling Catheter Indwelling Catheter Indwelling Catheter - Exam Physical Exam: Revealed a 82-year-old white male, slightly confused, in no distress, resting comfortably in bed. Answering simple questions but confused. Head: Atraumatic, normocephalic, EENT:[Neck is supple.] [No neck masses.] [No thyromegaly.] [No JVD.]. Moist mucous membranes. PERRLA, EOMI. Chest: [Clear throughout, no crackles, no rhonchi, no wheezes.] Cardiac Exam: [Normal S1 and S2, no S3 gallop, no murmur.] Abdomen: [Obese, Soft, nontender, no megaly, no rebound, no guarding, normal bowel sounds.] Extremities: [No clubbing, no edema, no cyanosis.] Good pulses bilaterally. Neurological Exam: Confused, otherwise [No focal neurologic deficit. Psychiatric: Blunted affect, depressed mood, confused. [place] skeletal: Normal range of motion, no deformities. - Labs CBC & Chem 7: 04/04/17 04:46 04/04/17 04:46 Labs: Abnormal Lab Results - Last 24 Hours (Table) 04/02/17 04/03/17 04/03/17 Range/Units 10:43 04:31 17:04 RBC (4.30-5.90) m/uL Hgb (13.0-17.5) gm/dL Hct (39.0-53.0) % MCV (80.0-100.0) fL MCH (25.0-35.0) pg RDW (11.5-15.5) % Retic Count 2.7 H (0.5-2.0) % Sodium 146 H (137-145) mmol/L Chloride 111 H (98-107) mmol/L BUN 47 H (9-20) mg/dL Creatinine 2.40 H (0.66-1.25) mg/dL Glucose 109 H (74-99) mg/dL Calcium 13.7 H* (8.4-10.2) mg/dL Ionized Calcium Elinor 7.8 H* (4.5-5.3) mg/dL Iron 24 L (65-175) ug/dL TIBC 199 L (228-460) ug/dL Iron Saturation 12.06 L (15.00-50.00) Ferritin 1552.5 H (22.0-322.0) ng/mL 04/04/17 04/04/17 Range/Units 04:46 04:46 RBC 2.26 L (4.30-5.90) m/uL Hgb 8.1 L (13.0-17.5) gm/dL Hct 24.6 L (39.0-53.0) % MCV 109.2 H (80.0-100.0) fL MCH 36.1 H (25.0-35.0) pg RDW 17.3 H (11.5-15.5) % Retic Count (0.5-2.0) % Sodium 146 H (137-145) mmol/L Chloride 111 H (98-107) mmol/L BUN 50 H (9-20) mg/dL Creatinine 2.80 H (0.66-1.25) mg/dL Glucose (74-99) mg/dL Calcium 12.8 H (8.4-10.2) mg/dL Ionized Calcium Elinor (4.5-5.3) mg/dL Iron (65-175) ug/dL TIBC (228-460) ug/dL Iron Saturation (15.00-50.00) Ferritin (22.0-322.0) ng/mL Assessment and Plan Assessment: 1 acute hypercalcemia with a clinical presentation which is very highly suspicious for multiple myeloma. Workup for multiple myeloma is in progress, in the meantime the patient is receiving treatment for his hypercalcemia, and seems to be responding quite well to treatment. 2 change in mental status secondary to above. The patient presented with severe dehydration and severe electrode disturbance with hypercalcemia and hypokalemia and addition to a mild component of rhabdomyolysis, 3 generalized weakness and fall secondary to above 4 acute rhabdomyolysis secondary to above 5 acute hypokalemia, replaced 6 compression fracture of the lumbar spine at the level of L3-L4 and L5 along with possibility of lytic lesions and the patient has extensive demineralization of the bones and lumbar spine 7 chronic back pain 8 coronary artery disease 9 chronic atrial fibrillation 10 acute coagulopathy probably related to varicose toxicity. The patient does not have any signs of bleeding 11 acute kidney injury/kidney failure. Rule out myeloma kidney. Rule out prerenal factors secondary to dehydration 12 BPH 13 diverticular disease with benign colonic polyps and hemorrhoids 14 diffuse osteopenia 15 acute atrial fibrillation with RVR, presently on Cardizem, being addressed by cardiology. Recommendation: Continue fluid resuscitation, continue calcitonin, continue meds to control blood pressure, continue to monitor renal profile and calcium. Awaiting final workup for multiple myeloma. Hematology is following, may or may not consider a bone marrow evaluation. Time with Patient: Less than 30
[2017-04-04] MEDS ORDERED: HEPARIN SODIUM,PORCINE 5,000 UNIT/ML 1 ML VIAL IV PRN (10:48)
[2017-04-04] MEDS ORDERED: HEPARIN SODIUM,PORCINE 5,000 UNIT/ML 1 ML VIAL IV ONE (10:48)
--- NOTE | 2017-04-04 10:54 | P.PN ---
Subjective Progress Note Date: 04/04/17 this patient is admitted with the hypercalcemia and altered mental status. Patient had intermittent of pauses of 3-4 seconds during the night which could be secondary to sleep apnea. Patient's IV Lopressor was discontinued. Patient' s heart rate is now controlled with the small dose of for Cardizem drip sent is more alert and awake as compared to yesterday since calcium is coming down. We will start the patient on IV heparin to prevent any stroke we will hold off any oral anticoagulants at present in view of the creatinine being 2.8 Objective - Vital Signs Vital signs: Vital Signs Temp 98.4 F 04/04/17 04:00 Pulse 94 04/04/17 09:30 Resp 21 04/04/17 09:30 BP 125/73 04/04/17 09:30 Pulse Ox 98 04/04/17 09:30 Intake & Output 04/03/17 04/04/17 04/04/17 18:59 06:59 18:59 Intake Total 2300 2400 600 Output Total 855 1000 425 Balance 1445 1400 175 Weight 92.1 kg 93.6 kg Intake: IV 2200 200 0.45% NaCl with KCl 20 2200 200 Meq/l 1,000 ml @ 200 mls/ hr IV .Q5H [facility] Rx#: [id number] Intake, IV Titration 2300 200 400 Amount 0.45% NaCl with KCl 20 2300 200 200 Meq/l 1,000 ml @ 200 mls/ hr IV .Q5H [facility] Rx#: [id number] Sodium Chloride 0.45% 1, 200 000 ml @ 200 mls/hr IV . Q5H [facility] Rx#:[id number] Output: Urine 855 1000 425 Other: Voiding Method Indwelling Catheter Indwelling Catheter Indwelling Catheter - Exam patient's vital signs are reviewed. Heart first and second heart sounds are normal. Lungs reveal a few scattered wheezes. - Labs CBC & Chem 7: 04/04/17 04:46 04/04/17 04:46 Labs: Abnormal Lab Results - Last 24 Hours (Table) 04/02/17 04/03/17 04/04/17 Range/Units 10:43 17:04 04:46 RBC 2.26 L (4.30-5.90) m/uL Hgb 8.1 L (13.0-17.5) gm/dL Hct 24.6 L (39.0-53.0) % MCV 109.2 H (80.0-100.0) fL MCH 36.1 H (25.0-35.0) pg RDW 17.3 H (11.5-15.5) % Sodium 146 H (137-145) mmol/L Chloride 111 H (98-107) mmol/L BUN 47 H (9-20) mg/dL Creatinine 2.40 H (0.66-1.25) mg/dL Glucose 109 H (74-99) mg/dL Calcium 13.7 H* (8.4-10.2) mg/dL Ionized Calcium Elinor 7.8 H* (4.5-5.3) mg/dL Iron 24 L (65-175) ug/dL TIBC 199 L (228-460) ug/dL Iron Saturation 12.06 L (15.00-50.00) Ferritin 1552.5 H (22.0-322.0) ng/mL 04/04/17 Range/Units 04:46 RBC (4.30-5.90) m/uL Hgb (13.0-17.5) gm/dL Hct (39.0-53.0) % MCV (80.0-100.0) fL MCH (25.0-35.0) pg RDW (11.5-15.5) % Sodium 146 H (137-145) mmol/L Chloride 111 H (98-107) mmol/L BUN 50 H (9-20) mg/dL Creatinine 2.80 H (0.66-1.25) mg/dL Glucose (74-99) mg/dL Calcium 12.8 H (8.4-10.2) mg/dL Ionized Calcium Elinor (4.5-5.3) mg/dL Iron (65-175) ug/dL TIBC (228-460) ug/dL Iron Saturation (15.00-50.00) Ferritin (22.0-322.0) ng/mL Assessment and Plan Assessment: we will continue the Cardizem drip at 5 mg/h. The start the patient on heparin drip.
[2017-04-04 11:25] LABS: INR 1.2 (<1.2); Partial Thromboplastin Time 26.4 sec (22.0-30.0); Prothrombin Time 11.3 sec (9.0-12.0)
[2017-04-04] MEDS: KETOROLAC 30 MG/ML 1 ML VIAL IVP SCH ×3 (11:31→23:12)
[2017-04-04 11:56] LABS: Anisocytosis Slight; Basophils % (A) 0 %; Eosinophils # (A) 0.1 k/uL (0-0.7); Eosinophils % (A) 1 %; HCT 23.9 % (39.0-53.0); HGB 7.6 gm/dL (13.0-17.5); Lymphocytes # (A) 1.2 k/uL (1.0-4.8); Lymphocytes % (A) 13 %; MCH 35.4 pg (25.0-35.0); MCHC 31.8 g/dL (31.0-37.0); MCV 111.1 fL (80.0-100.0); Macrocytosis Marked; Mean Platelet Volume 7.4; Monocytes # (A) 0.5 k/uL (0-1.0); Monocytes % (A) 6 %; Neutrophils # (A) 6.7 k/uL (1.3-7.7); Neutrophils % (A) 78 %; Platelet Count 245 k/uL (150-450); Poikilocytosis Slight; RBC 2.15 m/uL (4.30-5.90); RDW 16.1 % (11.5-15.5); WBC 8.6 k/uL (3.8-10.6)
[2017-04-04] MEDS: HEPARIN SOD,PORK IN 0.45% NACL 25,000 UNIT in 0.45% NACL 1 500ML.BAG IV SCH (12:02)
[2017-04-04] MEDS: THIAMINE 100 MG TAB PO SCH (12:02)
[2017-04-04 12:06] LABS: Vitamin D, 1, 25-Dihydroxy 11 pg/mL (20 - 79)
[2017-04-04 12:37] LABS: Rouleaux Present
[2017-04-04 12:38] LABS: Poikilocytosis (M) Present; Polychromasia Present
[2017-04-04] MEDS: METOPROLOL TARTRATE 5 MG/5 ML VIAL IVP SCH (13:53)
--- NOTE | 2017-04-04 18:24 | P.PN ---
Progress Note - Text Progress Note Date: 04/04/17 DATE OF SERVICE: 04/04/2017 PRESENTING COMPLAINT: Fall HISTORY OF PRESENT ILLNESS: 82-year-old male who sustained a fall in the bathroom at all 4 AM presented to the emergency department for further evaluation. Patient was confused, had multiple laboratory abnormalities, primarily creatinine kinase 4399, potassium 2.7, creatinine of 2.81 and calcium at 20.8. Admitted for further evaluation and treatment of these abnormalities as well as back pain. INTERVAL HISTORY: 04/04/2017: Lying in bed appears lethargic is arousable. Answers some simple straightforward questions.continues to have difficulty swallowing and remains somewhat lethargic to perform bedside swallow. Speech will evaluate tomorrow. Calcium improving,calcitonin continues. IV fluids continue at 200 mL an hour, has had some episodes of atrial fibrillation and has been initiated on a Cardizem drip.remains nothing by mouth await swallow evaluation.last [id number]. 04/03/2017: Lying in bed somewhat lethargic has difficulty recognizing his . Aggressive fluid resuscitation continues with half normal saline at 200 mL an hour. Had difficulty swallowing his pills was made nothing by mouth, pending swallow evaluation. Status post pamidronate will take 3-4 days before recognizing its peak effect. Calcitonin 6 international units per kilogram every 8 hours IM, 20 mmol of K-Phos IV. Await studies for multiple myeloma. 04/02/2017 Lying in bed, somewhat lethargic, aggressive fluid resuscitation continues, received calcitonin, and pamidronate with very small amount of improvement in the calcium level. Creatinine is unchanged 2.8. Skeletal series revealed generalized osteopenia marked degenerative spine changes at all levels and a mild L3 vertebral body compression fracture. Multiple myeloma workup is pending as are parathyroid hormone levels. Ultrasound of the kidneys show no evidence of hydronephrosis. Await additional input from oncology. Appetite is poor, patient is not eating much of any meals. at the bedside states that this is how it's been for about the past 30 days. Last BM prior to admission. REVIEW OF SYSTEMS: Done for constitutional ,cardiovascular, GI, pulmonary with relevant findings as above. CURRENT MEDICATIONS [place], Dulcolax, Miacalcin, clonidine,diltiazem, Cardura, Proscar,heparin, hydralazine,Toradol Lopressor, Protonix, thiamine, Ultram. PHYSICAL EXAM VITAL SIGNS: temperature 98.4, pulse 88, respirations 30, blood pressure 121/73, oxygen saturation 97%on 3 L. GENERAL APPEARANCE: Lying in bed, lethargic yet arousable. HENT: Normocephalic, JVD not raised. Mass not palpable. Oral cavity dry, external appearance of ears and nose normal. EYES:Pupils equal. Conjunctiva normal. RESPIRATORY: Respiratory effort normal. Lungs diminished to auscultation. CARDIOVASCULAR: First and second sounds normal. No edema. ABDOMEN: Soft. Liver and spleen not palpable. No tenderness. No mass palpable. PSYCHIATRY: AlertT2, able to answer questions such as what his name is, believe that Pres. Rice is the current president, and the years 2018 Mood and affect lethargic. INVESTIGATIONS: hemoglobin 7.6, INR 1.2,sodium 146, chloride 111, BUN 50, creatinine 2.80, free KappaLight chains 4.57, free lambda LC 1.14 ASSESSMENT: --Acute kidney injury severe possibly due to acute tubular necrosis, slow to respond -Acute severe hypercalcemia cause unclear with multiple myeloma in the differential, slow to respond -Acute metabolic encephalopathy multifactorial including renal failure, hypercalcemia, hypokalemia, slow to respond -Mild hypophosphatemia secondary to poor nutritional intake, slow to respond -Medical debility, multifactorial -Acute hypokalemia secondary to decreased oral intake, corrected -Compression fracture of the lumbar spine at the level of L3-L4 and L5 along with possibility of lytic lesions, extensive demineralization of bones and lumbar spine. -Chronic low back pain from compression fractures of lumbar spine at L3, L4, L5 -Coronary artery disease with prior history of stent -Persistent atrial fibrillation -Essential hypertension -Benign prostatic hypertrophy -Hypernatremia, likely from free water deficit slow to respond PLAN: Continue normal saline at 200 mL an hour, calcitonin decreased per nephrology, continue electrolyte with follow-up BMP. Await serum protein electrophoresis and immune electrophoresis and oncology planning possible bone marrow biopsy if lab valuesR not concrete for showing multiple myeloma. we'll transfer patient to [address] [place] [address] later this afternoon.Plan of care discussed at the bedside with family they are in agreement. We will follow closely. MANAGER WATER WASTEWATER statement: Patient was seen and examined by nurse practitioner Sydney García and all elements of the case discussed with attending Dr. Newsome
[2017-04-04] MEDS: DOXAZOSIN 4 MG TAB PO SCH (21:18)
--- NOTE | 2017-04-04 21:43 | PN ---
PROGRESS NOTE DATE OF SERVICE: 04/04/2017 ATTENDING NOTE: This patient was seen and examined by me. I discussed the case with the nurse practitioner Ms. García. This patient was moved out of ICU to the medical floor. Still lethargic but arousable. Some blood work is still pending. Patient's son, daughter and are at the bedside. The patient does mumble a little bit more. PHYSICAL EXAMINATION: Afebrile, pulse 72, respiration 20, blood pressure 105/66, pulse ox 98% on 2 L. LUNGS: Decreased breath sounds. The patient is lethargic but arousable. Follows simple commands. INVESTIGATIONS: White count 8.6, hemoglobin 7.6, potassium 4.8, BUN 50, creatinine 2.80, calcium 12.8. The patient's free kappa quantitative was elevated at 4.57 and urine free kappa, both kappa and lambda are both normal. RENETTA screen is negative. ASSESSMENT: 1. Severe hypercalcemia. Multiple myeloma is still strongly in the differential. Await further input from Hematology. 2. Acute kidney injury. 3. Acute metabolic encephalopathy, multifactorial. Did speak to the son and daughter. Did say that we will have to await for further input from Hematology and await the determination. Patient is overall still looking good. Patient's CODE STATUS is DNR. The patient is also on half-normal saline at 200 mL/hour. The patient did get IV pamidronate on April 01 and patient's calcitonin has been decreased. Prognosis is not good. Slow to respond. MMODL / IJN: [id number] /
[2017-04-05] MEDS: SODIUM CHLORIDE 0.45% 1,000 ML IV SCH ×4 (01:15→23:51)
[2017-04-05] MEDS: DILTIAZEM 125 MG in SODIUM CHLORIDE 0.9% 100 ML IV SCH (01:55)
[2017-04-05 05:11] LABS: Glucose,Whole Blood 90 mg/dL (75-99)
[2017-04-05] MEDS: KETOROLAC 30 MG/ML 1 ML VIAL IVP SCH (06:03)
[2017-04-05 06:37] LABS: Anisocytosis Slight; Basophils % (A) 0 %; Eosinophils # (A) 0.2 k/uL (0-0.7); Eosinophils % (A) 3 %; HCT 22.2 % (39.0-53.0); HGB 7.3 gm/dL (13.0-17.5); Hypochromasia Slight; Lymphocytes # (A) 1.1 k/uL (1.0-4.8); Lymphocytes % (A) 18 %; MCHC 32.6 g/dL (31.0-37.0); MCV 113.3 fL (80.0-100.0); Macrocytosis Marked; Mean Platelet Volume 8.1; Monocytes # (A) 0.3 k/uL (0-1.0); Monocytes % (A) 6 %; Neutrophils # (A) 4.4 k/uL (1.3-7.7); Neutrophils % (A) 73 %; Platelet Count 196 k/uL (150-450); RBC 1.96 m/uL (4.30-5.90); RDW 16.5 % (11.5-15.5); WBC 6.1 k/uL (3.8-10.6)
[2017-04-05 07:00] LABS: Calcium 10.8 mg/dL (8.4-10.2); Phosphorus 3.6 mg/dL (2.5-4.5); Potassium 4.4 mmol/L (3.5-5.1)
[2017-04-05] MEDS: FINASTERIDE 5 MG TAB PO SCH (08:39)
[2017-04-05] MEDS: PANTOPRAZOLE 40 MG/10 ML VIAL IV SCH (08:53)
--- NOTE | 2017-04-05 09:59 | P.PN ---
Subjective Patient is seen in follow-up for acute kidney injury. Creatinine in October 2013 was 0.85. This admission it has been stable in the range of 2.6-3. It is up to 3.1 today. Patient was noted to be severely hypercalcemic with calcium level greater than 20. He is maintained on calcitonin every 12 hours and calcium level is down to 10.8 this morning. He is currently maintained on half normal saline at 200 mL an hour. He is awake and alert today but still quite lethargic overall. He is now on a dysphagia diet. He is nonoliguric. Patient was also noted to be in atrial fibrillation on April 03 and also became quite bradycardic at times. He is off Cardizem drip. Vital signs are stable. General: The patient appeared well nourished and normally developed. HEENT: Head exam is unremarkable. Neck is without jugular venous distension. LUNGS: Lungs are clear to auscultation and percussion. Breath sounds decreased. HEART: Rate and Rhythm are regular. First and second heart sounds normal. No murmurs, rubs or gallops. ABDOMEN: Abdominal exam reveals normal bowel sounds. Non-tender and non- distended. No evidence of peritonitis. EXTREMITITES: No clubbing, cyanosis, or edema. Objective - Vital Signs Vital signs: Vital Signs Temp 97.4 F L 04/05/17 07:49 Pulse 108 H 04/05/17 08:00 Resp 18 04/05/17 08:00 BP 151/87 04/05/17 07:49 Pulse Ox 100 04/05/17 07:49 Intake & Output 04/04/17 04/05/17 04/05/17 18:59 06:59 18:59 Intake Total 1200 111.277 Output Total 425 Balance 775 111.277 Weight 93.6 kg 100.9 kg Intake: IV 200 0.45% NaCl with KCl 20 200 Meq/l 1,000 ml @ 200 mls/ hr IV .Q5H [facility] Rx#: [id number] Intake, IV Titration 1000 111.277 Amount 0.45% NaCl with KCl 20 200 Meq/l 1,000 ml @ 200 mls/ hr IV .Q5H [facility] Rx#: [id number] Heparin Sod,Pork in 0.45% 111.277 NaCl 25,000 unit In 0.45 % NaCl 1 500ml.bag @ 8 UNITS/KG/HR 14.97 mls/hr IV .Q24H [facility] Rx#: [id number] Sodium Chloride 0.45% 1, 800 000 ml @ 200 mls/hr IV . Q5H [facility] Rx#:[id number] Output: Urine 425 Other: Voiding Method Diaper Diaper Diaper Incontinent # Voids 1 - Labs CBC & Chem 7: 04/05/17 06:04 04/05/17 06:04 Labs: Abnormal Lab Results - Last 24 Hours (Table) 04/02/17 04/03/17 04/04/17 Range/Units 10:43 04:31 11:01 RBC 2.15 L (4.30-5.90) m/uL Hgb 7.6 L (13.0-17.5) gm/dL Hct 23.9 L (39.0-53.0) % MCV 111.1 H (80.0-100.0) fL MCH 35.4 H (25.0-35.0) pg RDW 16.1 H (11.5-15.5) % INR (<1.2) APTT (22.0-30.0) sec Chloride (98-107) mmol/L Carbon Dioxide (22-30) mmol/L BUN (9-20) mg/dL Creatinine (0.66-1.25) mg/dL Calcium (8.4-10.2) mg/dL Vit D 1,25-Dihydroxy 11 L (20 - 79) pg/mL Free We[place]man LC, Quant 4.57 H (0.33-1.94) mg/dL 04/04/17 04/04/17 04/05/17 Range/Units 11:01 17:38 00:28 RBC (4.30-5.90) m/uL Hgb (13.0-17.5) gm/dL Hct (39.0-53.0) % MCV (80.0-100.0) fL MCH (25.0-35.0) pg RDW (11.5-15.5) % INR 1.2 H (<1.2) APTT 38.0 H 54.6 H (22.0-30.0) sec Chloride (98-107) mmol/L Carbon Dioxide (22-30) mmol/L BUN (9-20) mg/dL Creatinine (0.66-1.25) mg/dL Calcium (8.4-10.2) mg/dL Vit D 1,25-Dihydroxy (20 - 79) pg/mL Free Weidman LC, Quant (0.33-1.94) mg/dL 04/05/17 04/05/17 Range/Units 06:04 06:04 RBC 1.96 L (4.30-5.90) m/uL Hgb 7.3 L (13.0-17.5) gm/dL Hct 22.2 L (39.0-53.0) % MCV 113.3 H (80.0-100.0) fL MCH 37.0 H (25.0-35.0) pg RDW 16.5 H (11.5-15.5) % INR (<1.2) APTT (22.0-30.0) sec Chloride 108 H (98-107) mmol/L Carbon Dioxide 21 L (22-30) mmol/L BUN 55 H (9-20) mg/dL Creatinine 3.10 H (0.66-1.25) mg/dL Calcium 10.8 H (8.4-10.2) mg/dL Vit D 1,25-Dihydroxy (20 - 79) pg/mL Free Weidman LC, Quant (0.33-1.94) mg/dL Assessment and Plan Plan: Assessment: #1. Nonoliguric acute kidney injury secondary to ATN secondary to hypercalcemia and hemodynamic instability. Creatinine elevated at 3.1. No evidence of hydronephrosis noted on renal ultrasound. #2. Hypercalcemia likely related to underlying malignancy. I don't see any calcium or vitamin D supplements and his home medications. PTH on the lower side. Vitamin D level 33.8. 1,25 D3 level 11. [place]man light chains noted to be elevated at 4.57. CHICO level 8. #3. Hypokalemia from renal potassium wasting. Magnesium also little bit on the lower side. Improved post replacement. #4. History of hypertension. Currently controlled. #5. Hypernatremia secondary to lack of oral water intake. Improved. #6. Mild hypophosphatemia due to poor nutritional status. Status post replacement. Plan: I will decrease rate of half-normal saline to 100 mL an hour. Discontinued potassium supplementation. Status post 60 mg IV pamidronate on April 01. Discontinue calcitonin. Avoid nephrotoxic agents and hypotensive episodes. Await immunofixation results. Check parathyroid nuclear scan. Also follow-up on CAT scan of the chest. Discussed with oncology. Discontinue Toradol.
[2017-04-05 10:57] LABS: Albumin 3.63 g/dL (3.80-4.90); Gamma Globulin 0.46 g/dL (0.70-1.50)
--- NOTE | 2017-04-05 11:44 | P.PN ---
Subjective Progress Note Date: 04/05/17 Principal diagnosis: Fall This is an 82-year-old gentleman who was initially brought to the hospital after experiencing a fall. He had significant abnormalities in his electrolytes with his potassium being 2.2, and his calcium level 20.2. His overall findings are not suggestive of acute coronary syndrome. Patient is presently in a normal sinus rhythm with a controlled ventricular response. He is noted on the monitor to be having long pauses of up to 9.4 seconds through the night last night. BiPAP was applied, he has had 2 brief pauses since the BiPAP was applied and currently is not having any positives, his heart rate is in the 80s. White blood cell count this morning 6.1, hemoglobin 7.3, sodium 140 , potassium 4.4, BUN 55, creatinine 3.1. Calcium 10.8. Patient was seen and examined this morning, he just returned from having a parathyroid scan performed. He is still quite groggy, denies any dizziness or lightheadedness. Blood pressure 133/68 with a heart rate in the 80s. Objective - Vital Signs Vital signs: Vital Signs Temp 97.4 F L 04/05/17 07:49 Pulse 108 H 04/05/17 08:00 Resp 18 04/05/17 08:00 BP 151/87 04/05/17 07:49 Pulse Ox 100 04/05/17 07:49 Intake & Output 04/04/17 04/05/17 04/05/17 18:59 06:59 18:59 Intake Total 1200 111.277 Output Total 425 Balance 775 111.277 Weight 93.6 kg 100.9 kg Intake: IV 200 0.45% NaCl with KCl 20 200 Meq/l 1,000 ml @ 200 mls/ hr IV .Q5H [facility] Rx#: [id number] Intake, IV Titration 1000 111.277 Amount 0.45% NaCl with KCl 20 200 Meq/l 1,000 ml @ 200 mls/ hr IV .Q5H [facility] Rx#: [id number] Heparin Sod,Pork in 0.45% 111.277 NaCl 25,000 unit In 0.45 % NaCl 1 500ml.bag @ 8 UNITS/KG/HR 14.97 mls/hr IV .Q24H [facility] Rx#: [id number] Sodium Chloride 0.45% 1, 800 000 ml @ 100 mls/hr IV . Q10H [facility] Rx#:[id number] Output: Urine 425 Other: Voiding Method Diaper Diaper Diaper Incontinent # Voids 1 3 - Exam PHYSICAL EXAMINATION: 82-year-old gentleman, slightly lethargic this morning. HEENT: Head is atraumatic, normocephalic. Pupils equal, round. Neck is supple. There is no elevated jugular venous pressure. HEART EXAMINATION: S1 and S2 irregularly irregular CHEST EXAMINATION: Lungs are clear to auscultation and precussion. No chest wall tenderness is noted on palpation or with deep breathing. BiPAP currently on ABDOMEN: Soft, nontender. Bowel sounds are heard. No organomegaly noted. EXTREMITIES: 2+ peripheral pulses with no evidence of peripheral edema and no calf tenderness noted. NEUROLOGIC patient is awake, alert and oriented -3. . - Labs CBC & Chem 7: 04/05/17 06:04 04/05/17 06:04 Labs: Abnormal Lab Results - Last 24 Hours (Table) 04/02/17 04/04/17 04/04/17 Range/Units 10:43 11:01 17:38 RBC 2.15 L (4.30-5.90) m/uL Hgb 7.6 L (13.0-17.5) gm/dL Hct 23.9 L (39.0-53.0) % MCV 111.1 H (80.0-100.0) fL MCH 35.4 H (25.0-35.0) pg RDW 16.1 H (11.5-15.5) % APTT 38.0 H (22.0-30.0) sec Chloride (98-107) mmol/L Carbon Dioxide (22-30) mmol/L BUN (9-20) mg/dL Creatinine (0.66-1.25) mg/dL Calcium (8.4-10.2) mg/dL Vit D 1,25-Dihydroxy 11 L (20 - 79) pg/mL 04/05/17 04/05/17 04/05/17 Range/Units 00:28 06:04 06:04 RBC 1.96 L (4.30-5.90) m/uL Hgb 7.3 L (13.0-17.5) gm/dL Hct 22.2 L (39.0-53.0) % MCV 113.3 H (80.0-100.0) fL MCH 37.0 H (25.0-35.0) pg RDW 16.5 H (11.5-15.5) % APTT 54.6 H (22.0-30.0) sec Chloride 108 H (98-107) mmol/L Carbon Dioxide 21 L (22-30) mmol/L BUN 55 H (9-20) mg/dL Creatinine 3.10 H (0.66-1.25) mg/dL Calcium 10.8 H (8.4-10.2) mg/dL Vit D 1,25-Dihydroxy (20 - 79) pg/mL Assessment and Plan Plan: Assessment and plan #1 acute hypercalcemia with clinical presentation highly suspicious for multiple myeloma, workup for multiple myeloma is in progress. #2 mental status changes, likely secondary to above. #3 generalized weakness and fall #4 chronic persistent atrial fibrillation with evidence of a long pauses, seemed to be improved with BiPAP. #5 compression fracture of the lumbar spine #6 acute on [place]riel a kidney injury Plan We will continue to monitor the patient, it appears that with the BiPAP in place patient is not having significant pauses. However if the patient continues to have significant pauses and evidence of tachycardia bradycardia syndrome, he may require implantation of a permanent pacemaker. We will check to see what the status is on the patient's possible multiple myeloma and prognosis thereof and further recommendations will be made. DNP note has been reviewed, I agree with a documented findings and plan of care. Patient was seen and examined.
[2017-04-05] MEDS: MAGNESIUM SULFATE-D5W PMX 1 GM in DEXTROSE/WATER 1 100ML.BAG IVPB SCH ×2 (12:12→13:36)
[2017-04-05] MEDS: CALCITONIN INJ 200 UNIT/ML (MDV) VIAL IM SCH ×2 (12:36→13:32)
[2017-04-05] MEDS: HEPARIN SOD,PORK IN 0.45% NACL 25,000 UNIT in 0.45% NACL 1 500ML.BAG IV SCH (13:36)
[2017-04-05] MEDS: THIAMINE 100 MG TAB PO SCH (13:37)
--- NOTE | 2017-04-05 16:32 | P.PN ---
Subjective Progress Note Date: 04/05/17 Principal diagnosis: Acute hypercalcemia This is a 82-year-old male patient with known history of coronary artery disease with previous PCI, chronic atrial fibrillation, hypertension and hyperlipidemia, and osteoarthritis, who came into the emergency department very lethargic and weak. Apparently the patient was becoming progressively more weak and dizzy and he had a fall that occurred around 4 AM when the patient was trying to go to the bathroom. Patient states that he lost balance and he fell. He denies having any significant injuries. No head injury. He stated that he has chronic back pain and the back and has essentially been unchanged. The patient was brought into the hospital and he was seen and burst department he was found to have significant abnormalities in his blood work and electrolytes. Specifically the patient was found to be anemic with a hemoglobin of 9.8, the patient was found to have a PTT of 200 knowing that he is on oral anticoagulation with Eliquis, he was found to be hypokalemic with a potassium level of 2.2, he was an acute kidney injury with a creatinine of 3.0, his serum calcium level was 20.3 with an ionized calcium of 10.2 and a phosphorus level of 2.6 and a magnesium 1.8 and an alkaline phosphatase of 84 with a CPK of 4399 and troponin was 0.247. The patient's total serum protein was 10.4 and albumin was 4.0. Note that the patient was being investigated for back pain and had undergone a CAT scan of the lumbosacral spine on 02/22/2017 and he was found to have multi leveled compressive deformities including the greatest at the level of L3 with approximately 50% loss of the mid vertebral body height. There was also compression at the level of L4 and endplates of L2 and superior endplates of L1 and also poses was also present and possibility of underlying lytic lesions were also included and suspected. There is also evidence of spinal canal stenosis at the level of L4-L5. A bone scan that was done on 03/04/2017 showed demineralization that was diffuse without any evidence of an acute or subacute fractures. [facility]. He was given [place] for pain control which made him more confused and lethargic. At this point in time he is on IV fluids. He is receiving 200 mL an hour of normal saline along with potassium replacement. The patient is also on alendronate 60 mg IV. On 04/02/2017 I'm seeing this patient for a follow-up. As mentioned yesterday the patient was Hospital as for an acute hypercalcemia and electrode disturbance and acute kidney injury. The patient was resuscitated aggressively with IV fluids and he was receiving 200 mL of normal saline hourly basis. He is producing adequate amount of urine output which is estimated to be more than 70 mL an hourly basis. The patient also received IV pamidronate and the patient received calcitonin. There is a modest improvement in the calcium level which is down to 18.4. Creatinine is also unchanged at 2.8. Patient is still lethargic, confused, and somewhat debilitated. Skeletal series were obtained and the patient was found to have generalized osteopenia marked degenerative spine changes at all levels and mild L3 vertebral body compression fracture. The myeloma workup was initiated and the workup is still pending. PTH levels are also pending. Ultrasound the kidneys showed no evidence of hydronephrosis. Note that urinalysis is also failed to show any significant proteinuria. Nephrology is on the case. Awaiting the myeloma workup. Awaiting an oncology consultation. On 04/03/2017, I'm seeing this patient for a follow-up. Slightly more awake and alert compared to yesterday. Calcium level has been gradually improving is down to 15. The patient remains on normal state rate of 200 mL an hour. This morning he was switched to half-normal saline knowing that his sodium level has been quite elevated at 150. Most recent calcium level is at 15.4. Potassium has been also replace is up to 3.8. Hemoglobin is at 9.0 minutes currently stable. The patient is resting comfortably in bed. When he wakes up he complains of pain throughout his body. He is still on that investigation. Serum protein electrophoresis and immunofixation is still pending for now. Oncology developed this patient and the patient is being also considered for a bone marrow biopsy with the next 24-48 hours. He is afebrile. He is having rapid ventricular response regarding his atrial fibrillation and his heart rate is ranging between 108 and 1:30. He is producing adequate amount of urine output. Pulse ox 98% on room air. Patient was reevaluated today on 04/04/2017, patient is confused, however his calcium has responded quite well over the last 24 hours, it is 12.8 today. BUN remains elevated at 50 creatinine is about the same at 2.80 hemoglobin is 8.1, platelets are normal. WBC count is 8.1. Patient received for his elevated calcium hydration, pamidronate, calcitonin. Serum protein electrophoresis is pending. The rest of the multiple myeloma workup is pending. Urine protein electrophoresis is also pending. Patient already received biphosphonate, and may or may not require bone marrow biopsy. Patient had to be placed on Cardizem for A. fib with RVR last night, remains on Cardizem, and that is being addressed by cardiology on the case. Patient seems to be hemodynamically stable. Has good urine output. Nephrology is still following. On 04/05/2017 patient seen in follow-up on selective care unit. He is very lethargic, he was placed back on BiPAP after lunch. He is barely arousable to tactile stimulation. He does not stay awake, drifts back to sleep. We'll obtain a blood gas, and a portable chest x-ray now. Per nursing staff yesterday his Cardizem drip was discontinued, subsequently in the evening patient was noted to have long pauses, up to 9.4 seconds in duration, he was placed on BiPAP, in the evening. Currently remains in sinus rhythm with a controlled ventricular response. His calcium level today is 10.8, nephrology has the patient on calcitonin every 12 hours, patient had been maintained on half-normal saline at 200 ML per hour, which was decreased down to 100 ML per hour. Patient had received Pamidronate per nephrology. Patient went for parathyroid scan this morning, the second half of the test was supposed to be completed this afternoon. Creatinine is elevated at 3.1, patient is nonoliguric. Lung sounds are diminished, a few bibasilar rales. Medical oncology is following regarding possibility of underlying malignancy, and workup for possible multiple myeloma is in progress. Patient is a CODE STATUS of DO NOT RESUSCITATE. When patient was seen again after his parathyroid scan, he was more awake, off the BiPAP, in no respiratory distress. He did refuse his chest x-ray. The blood gas was discontinued due to patient's improvement in aeration and improved respiratory status. Objective - Vital Signs Vital signs: Vital Signs Temp 97.3 F L 04/05/17 12:00 Pulse 113 H 04/05/17 12:00 Resp 19 04/05/17 12:00 BP 152/76 04/05/17 12:00 Pulse Ox 95 04/05/17 12:00 Intake & Output 04/04/17 04/05/17 04/05/17 18:59 06:59 18:59 Intake Total 1200 111.277 573.365 Output Total 425 Balance 775 111.277 573.365 Weight 93.6 kg 100.9 kg Intake: IV 200 0.45% NaCl with KCl 20 200 Meq/l 1,000 ml @ 200 mls/ hr IV .Q5H [facility] Rx#: [id number] Intake, IV Titration 1000 111.277 373.365 Amount 0.45% NaCl with KCl 20 200 Meq/l 1,000 ml @ 200 mls/ hr IV .Q5H [facility] Rx#: [id number] Heparin Sod,Pork in 0.45% 111.277 373.365 NaCl 25,000 unit In 0.45 % NaCl 1 500ml.bag @ 8 UNITS/KG/HR 14.97 mls/hr IV .Q24H [facility] Rx#: [id number] Sodium Chloride 0.45% 1, 800 000 ml @ 100 mls/hr IV . Q10H [facility] Rx#:[id number] Oral 200 Output: Urine 425 Other: Voiding Method Diaper Diaper Diaper Incontinent # Voids 1 3 - Exam Physical Exam: Revealed a 82-year-old white male, very lethargic, in no distress , resting comfortably in bed, currently on BiPAP support Head: Atraumatic, normocephalic, EENT:[Neck is supple.] [No neck masses.] [No thyromegaly.] [No JVD.]. Moist mucous membranes. PERRLA, EOMI. Chest: [Lung sounds are diminished, with bibasilar rales. Decreased air entry bilaterally] Cardiac Exam: [Normal S1 and S2, no S3 gallop, no murmur.] Abdomen: [Obese, Soft, nontender, no megaly, no rebound, no guarding, normal bowel sounds.] Extremities: [No clubbing, no edema, no cyanosis.] Good pulses bilaterally. Neurological Exam: Confused, otherwise [No focal neurologic deficit. Psychiatric: Blunted affect, depressed mood, confused. [place] skeletal: Normal range of motion, no deformities. - Labs CBC & Chem 7: 04/05/17 06:04 04/05/17 06:04 Labs: Abnormal Lab Results - Last 24 Hours (Table) 04/01/17 04/04/17 04/05/17 Range/Units 19:25 17:38 00:28 RBC (4.30-5.90) m/uL Hgb (13.0-17.5) gm/dL Hct (39.0-53.0) % MCV (80.0-100.0) fL MCH (25.0-35.0) pg RDW (11.5-15.5) % APTT 38.0 H 54.6 H (22.0-30.0) sec Chloride (98-107) mmol/L Carbon Dioxide (22-30) mmol/L BUN (9-20) mg/dL Creatinine (0.66-1.25) mg/dL Calcium (8.4-10.2) mg/dL Albumin (PEP) 3.63 L (3.80-4.90) g/dL Beta Globulins 4.74 H (0.60-1.30) g/dL Gamma Globulins 0.46 L (0.70-1.50) g/dL 04/05/17 04/05/17 Range/Units 06:04 06:04 RBC 1.96 L (4.30-5.90) m/uL Hgb 7.3 L (13.0-17.5) gm/dL Hct 22.2 L (39.0-53.0) % MCV 113.3 H (80.0-100.0) fL MCH 37.0 H (25.0-35.0) pg RDW 16.5 H (11.5-15.5) % APTT (22.0-30.0) sec Chloride 108 H (98-107) mmol/L Carbon Dioxide 21 L (22-30) mmol/L BUN 55 H (9-20) mg/dL Creatinine 3.10 H (0.66-1.25) mg/dL Calcium 10.8 H (8.4-10.2) mg/dL Albumin (PEP) (3.80-4.90) g/dL Beta Globulins (0.60-1.30) g/dL Gamma Globulins (0.70-1.50) g/dL Assessment and Plan Plan: Assessment: 1 acute hypercalcemia with a clinical presentation which is very highly suspicious for multiple myeloma. Workup for multiple myeloma is in progress, in the meantime the patient is receiving treatment for his hypercalcemia, and seems to be responding quite well to treatment. 2 change in mental status secondary to above. The patient presented with severe dehydration and severe electrode disturbance with hypercalcemia and hypokalemia and addition to a mild component of rhabdomyolysis 3 long pauses up to 9.4 seconds on 04/05/2017, Cardizem drip is on hold. Patient was placed back on BiPAP, patient's bradycardia arrhythmia is most likely related to his apnea/hypopnea. Cardiology following 3 generalized weakness and fall secondary to above 4 acute rhabdomyolysis secondary to above 5 acute hypokalemia, replaced 6 compression fracture of the lumbar spine at the level of L3-L4 and L5 along with possibility of lytic lesions and the patient has extensive demineralization of the bones and lumbar spine 7 chronic back pain 8 coronary artery disease 9 chronic atrial fibrillation 10 acute coagulopathy probably related to varicose toxicity. The patient does not have any signs of bleeding 11 acute kidney injury/kidney failure. Rule out myeloma kidney. Rule out prerenal factors secondary to dehydration 12 BPH 13 diverticular disease with benign colonic polyps and hemorrhoids 14 diffuse osteopenia 15 acute atrial fibrillation with RVR, presently on Cardizem, being addressed by cardiology. Recommendation: Portable chest x-ray and ABG, patient seems to be increasingly more lethargic, even on BiPAP support. Patient was seen again after his parathyroid scan, is more awake, off the BiPAP, in no distress. He had refused his chest x-ray, we will discontinue the blood gas. If patient becomes more lethargic place him back on BiPAP support. Continue with nephrology and cardiology recommendations. Maintain aspiration precautions, hold oral feedings if patient is somnolent. Awaiting the results of the multiple myeloma workup. Patient remains a DO NOT RESUSCITATE status. I performed a history & physical examination of the patient and discussed their management with my nurse practitioner, Mary Acuna. I reviewed the nurse practitioner's note and agree with the documented findings and plan of care. Lung sounds are diminished with bibasilar rales. The findings and the impression was discussed with the patient. I attest to the documentation by the nurse practitioner. Time with Patient: Less than 30
[2017-04-05 17:40] LABS: Hepatitis A Antibody IgM Non-Reactive (Non-Reactive); Hepatitis B Core IgM Non-Reactive (Non-Reactive)
--- NOTE | 2017-04-05 17:42 | P.PN ---
Progress Note - Text Progress Note Date: 04/05/17 DATE OF SERVICE: 04/05/2017 PRESENTING COMPLAINT: Fall HISTORY OF PRESENT ILLNESS: 82-year-old male who sustained a fall in the bathroom at all 4 AM presented to the emergency department for further evaluation. Patient was confused, had multiple laboratory abnormalities, primarily creatinine kinase 4399, potassium 2.7, creatinine of 2.81 and calcium at 20.8. Admitted for further evaluation and treatment of these abnormalities as well as back pain. INTERVAL HISTORY: 04/05/2017: Lying in bed currently on the BiPAP, much more easy to arouse today. Remains in atrial fibrillation, rate uncontrolled in the low 100s. Patient's mentation improving able to participate in a swallow evaluation. Diet advanced. Kidney function is improving albeit slowly, had dialysis yesterday and is scheduled again for today. IV fluids reduced. Await multiple myeloma workup lab results , scheduled for a parathyroid nuclear scan today. Tolerating his diet, currently primarily bedbound, last BM 04/03/2017. 04/04/2017: Lying in bed appears lethargic is arousable. Answers some simple straightforward questions.continues to have difficulty swallowing and remains somewhat lethargic to perform bedside swallow. Speech will evaluate tomorrow. Calcium improving,calcitonin continues. IV fluids continue at 200 mL an hour, has had some episodes of atrial fibrillation and has been initiated on a Cardizem drip.remains nothing by mouth await swallow evaluation.last [email or web address]. 04/03/2017: Lying in bed somewhat lethargic has difficulty recognizing his . Aggressive fluid resuscitation continues with half normal saline at 200 mL an hour. Had difficulty swallowing his pills was made nothing by mouth, pending swallow evaluation. Status post pamidronate will take 3-4 days before recognizing its peak effect. Calcitonin 6 international units per kilogram every 8 hours IM, 20 mmol of K-Phos IV. Await studies for multiple myeloma. 04/02/2017 Lying in bed, somewhat lethargic, aggressive fluid resuscitation continues, received calcitonin, and pamidronate with very small amount of improvement in the calcium level. Creatinine is unchanged 2.8. Skeletal series revealed generalized osteopenia marked degenerative spine changes at all levels and a mild L3 vertebral body compression fracture. Multiple myeloma workup is pending as are parathyroid hormone levels. Ultrasound of the kidneys show no evidence of hydronephrosis. Await additional input from oncology. Appetite is poor, patient is not eating much of any meals. at the bedside states that this is how it's been for about the past 30 days. Last BM prior to admission. REVIEW OF SYSTEMS: Done for constitutional ,cardiovascular, GI, pulmonary with relevant findings as above. CURRENT MEDICATIONS [place], Dulcolax, Miacalcin, clonidine,diltiazem, Cardura, Proscar,heparin, hydralazine,Toradol Lopressor, Protonix, thiamine, Ultram. PHYSICAL EXAM VITAL SIGNS: Temp 97.4, pulse 121, respiratory rate 18, blood pressure 151/87, oxygen saturation 100% on the BiPAP GENERAL APPEARANCE: Lying in bed, more awake today currently on the BiPAP. HENT: Normocephalic, JVD not raised. Mass not palpable. Oral cavity dry, external appearance of ears and nose normal. EYES:Pupils equal. Conjunctiva normal. RESPIRATORY: Respiratory effort increased. Lungs diminished to auscultation. CARDIOVASCULAR: Irregular rhythm . No edema. ABDOMEN: Soft. Liver and spleen not palpable. No tenderness. No mass palpable. PSYCHIATRY: Alert2, able to answer questions such as what his name is, believe that Pres. Rice is the current president, and the years 2018 Mood and affect lethargic. INVESTIGATIONS: LABS: Hemoglobin 7.3, sodium 140, potassium 4.4, chloride 108, cardiac site 21, BUN 55, creatinine 3.10. free KappaLight chains 4.57, free lambda LC 1.14, any screen negative IgA kappa paraprotein identified. IgA kappa Bence-Hoffman protein identified. ASSESSMENT: --Acute kidney injury severe possibly due to acute tubular necrosis, improving -Acute severe hypercalcemia cause unclear with multiple myeloma high on the differential, await additional input from hematology. slow to respond -Acute metabolic encephalopathy multifactorial including renal failure, hypercalcemia, hypokalemia, improving -Mild hypophosphatemia secondary to poor nutritional intake, slow to respond -Medical debility, multifactorial -Acute hypokalemia secondary to decreased oral intake, corrected -Compression fracture of the lumbar spine at the level of L3-L4 and L5 along with possibility of lytic lesions, extensive demineralization of bones and lumbar spine. -Chronic low back pain from compression fractures of lumbar spine at L3, L4, L5 -Coronary artery disease with prior history of stent -Persistent atrial fibrillation -Essential hypertension -Benign prostatic hypertrophy -Hypernatremia, likely from free water deficit slow to respond PLAN: Continue half normal saline at 100 mL an hour, calcitonin discontinued per nephrology, continue electrolyte with follow-up BMP. Multiple myeloma remains high on the differential list. Await additional input from oncology. Plan of care discussed at the bedside. We will follow closely. BUSINESS TECHNOLOGY TEACHER statement: Patient was seen and examined by nurse practitioner Sydney García and all elements of the case discussed with attending Dr. Newsome
[2017-04-05] MEDS: DOXAZOSIN 4 MG TAB PO SCH (19:51)
--- NOTE | 2017-04-05 23:29 | PN ---
PROGRESS NOTE DATE OF SERVICE: 04/05/2017 ATTENDING NOTE: The patient seen and examined by me. I discussed with my nurse practitioner, Ms. García. This is a patient admitted with severe hypercalcemia, metabolic encephalopathy. A bit more awake today, answering simple questions. The patient's serum and urine has come back positive for IgA kappa chain more compatible with multiple myeloma. EXAMINATION: Temperature 97.3, pulse 113, respirations 19, blood pressure 142/76, 95% on room air on room air. HEART: Sounds irregular. The patient is a bit more awake and answering questions. INVESTIGATION: White count 6.1, hemoglobin 7.3. Sodium 140, creatinine 3.10. Calcium 10.8. Serum and urine positive for IgA kappa chains. ASSESSMENT: 1. Acute metabolic encephalopathy, multifactorial, likely improving. 2. Acute kidney injury, slow to respond, unchanged. 3. Hypercalcemia, improving, now felt to be from multiple myeloma. 4. Hyponatremia, corrected. 5. Persistent atrial fibrillation with a long pause overnight. PLAN: Care was discussed with Dr. Ramey, Dr. Leiva. Dr. Ramey will further coordinate from here. Hopefully patient's pauses will settle down with correction of electrolytes. The patient is communicating better. Patient will be fed with assistance. Prognosis still guarded. Follow. MMODL / IJN: [id number] /
--- NOTE | 2017-04-05 23:47 | P.PN ---
Subjective Progress Note Date: 04/05/17 the patient has been transferred out of the ICU. He had been having pauses and his cardiac rhythm, with associated hypoxia. This has improved with the use of BiPAP. He is more awake today but still remains lethargic. He has been eating somewhat more. He continues to complain of significant lower back pain. No fever/chills/nausea/vomiting/obvious bleeding Objective - Vital Signs Vital signs: Vital Signs Temp 98.3 F 04/05/17 19:45 Pulse 116 H 04/05/17 19:45 Resp 20 04/05/17 19:45 BP 159/92 04/05/17 19:45 Pulse Ox 98 04/05/17 19:45 Intake & Output 04/05/17 04/05/17 04/06/17 06:59 18:59 06:59 Intake Total 111.277 573.365 Balance 111.277 573.365 Weight 100.9 kg Intake: Intake, IV Titration 111.277 373.365 Amount Heparin Sod,Pork in 0.45% 111.277 373.365 NaCl 25,000 unit In 0.45 % NaCl 1 500ml.bag @ 8 UNITS/KG/HR 14.97 mls/hr IV .Q24H [facility] Rx#: [id number] Oral 200 Other: Voiding Method Diaper Diaper Diaper Incontinent # Voids 1 2 - Constitutional Constitutional Comment(s): weak, lethargic, falls asleep easily. On BiPAP General appearance: Present: no acute distress - EENT Eyes: Present: PERRLA ENT: Present: hearing grossly normal, normal oropharynx - Neck Thyroid: bilateral: normal size - Respiratory Respiratory: bilateral: diminished - Cardiovascular Rhythm: irregularly irregular Heart sounds: normal: S1, S2 - Gastrointestinal General gastrointestinal: Present: normal bowel sounds, soft - Integumentary Integumentary: Present: normal - Neurologic Neurologic Comment(s): mental status as noted. Responses are somewhat slow. Possibly mild confusion Neurologic: Present: CNII-XII intact - Musculoskeletal Musculoskeletal: Present: generalized weakness, strength equal bilaterally - Psychiatric Psychiatric Comment(s): mental status as above - Labs CBC & Chem 7: 04/05/17 06:04 04/05/17 06:04 Labs: Abnormal Lab Results - Last 24 Hours (Table) 04/01/17 04/05/17 04/05/17 Range/Units 19:25 00:28 06:04 RBC 1.96 L (4.30-5.90) m/uL Hgb 7.3 L (13.0-17.5) gm/dL Hct 22.2 L (39.0-53.0) % MCV 113.3 H (80.0-100.0) fL MCH 37.0 H (25.0-35.0) pg RDW 16.5 H (11.5-15.5) % APTT 54.6 H (22.0-30.0) sec Chloride (98-107) mmol/L Carbon Dioxide (22-30) mmol/L BUN (9-20) mg/dL Creatinine (0.66-1.25) mg/dL Calcium (8.4-10.2) mg/dL Albumin (PEP) 3.63 L (3.80-4.90) g/dL Beta Globulins 4.74 H (0.60-1.30) g/dL Gamma Globulins 0.46 L (0.70-1.50) g/dL 04/05/17 Range/Units 06:04 RBC (4.30-5.90) m/uL Hgb (13.0-17.5) gm/dL Hct (39.0-53.0) % MCV (80.0-100.0) fL MCH (25.0-35.0) pg RDW (11.5-15.5) % APTT (22.0-30.0) sec Chloride 108 H (98-107) mmol/L Carbon Dioxide 21 L (22-30) mmol/L BUN 55 H (9-20) mg/dL Creatinine 3.10 H (0.66-1.25) mg/dL Calcium 10.8 H (8.4-10.2) mg/dL Albumin (PEP) (3.80-4.90) g/dL Beta Globulins (0.60-1.30) g/dL Gamma Globulins (0.70-1.50) g/dL Microbiology - Last 24 Hours (Table) 04/05/17 11:30 Urine Culture - Preliminary Urine,Catheterized Assessment and Plan (1) Hypercalcemia Narrative/Plan: calcium level continues to improve, and was 10.8 today. This has been associated with some improvement in his mental status no history remains fairly weak and lethargic. Earlier today, when bone survey, bone scan as well as light chains not providing any specific clue to the etiology, we had considered doing a parathyroid scan as well as CT scan of the chest to look for other malignancies or sarcoid. 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 We will continue hydration, and calcitonin. Current Visit: Yes Status: Acute Code(s): E83.52 - HYPERCALCEMIA SNOMED Code(s): 43762866 (2) Myeloma Narrative/Plan: as noted above, initially the bone survey as well as light chains were not indicative of myeloma. 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 This is highly suspicious for overt multiple myeloma. these findings and implications were discussed in detail with the patient as well as multiple family members. The patient appeared to be lethargic, and somewhat confused. I will not sure about his comprehension and therefore had extensive discussions with his son who is the power of criminal defense attorney as well as multiple other family members. They were advised that the lab findings are highly suspicious for overt multiple myeloma. Typically in this case, the next 4 to be a bone marrow aspiration and biopsy to confirm the diagnosis. The procedure was initially discussed in detail with his POA. They were advised that his risk may be somewhat limited than normal, due to ongoing metabolic/ cardiac issues with proposed sedation for the procedure, as well as increased half life of heparin in the setting of renal failure. For this patient I would recommend stopping heparin about 6 hours prior to procedure to try to reduce that risk. They had multiple questions about pathophysiology, treatment options, as well as prognosis with and without treatment. They're also concerned about his poor performance status prior to his admission. It was clarified that his performance status declined and was mostly due to his low back pain. They were advised that this is potentially correctable. In addition acute decline in performance status appears to be due to hypercalcemia and renal failure. Again some improvement would be expected with treatment of the hypercalcemia. No myeloma is generally not curable without an allogeneic bone marrow transplant (for which this patient is not a candidate) it is generally considered a very treatable malignancy with overall high rates of response to first line regimens. A regimen such as Velcade and Decadron would have a good chance of being tolerable. They were also advise that without active treatment, life expectancy would likely be quite limited since hypercalcemia would most likely recur in the short -term. The family were not sure if they would want to proceed with active treatment. they decided to discuss this further with the patient himself. they ultimately decided to cancel the procedure which had originally been scheduled for tomorrow, and then make a decision about proceeding with it or not, after discussing it with the patient when he is more alert. Current Visit: Yes Status: Acute Code(s): C90.00 - MULTIPLE MYELOMA NOT HAVING ACHIEVED REMISSION SNOMED Code(s): 370796800 Time with Patient: Greater than 30
[2017-04-06 05:58] LABS: Anisocytosis Slight; Basophils % (A) 0 %; Eosinophils # (A) 0.2 k/uL (0-0.7); Eosinophils % (A) 4 %; HCT 22.2 % (39.0-53.0); Hypochromasia Slight; Lymphocytes # (A) 0.9 k/uL (1.0-4.8); Lymphocytes % (A) 16 %; MCH 35.7 pg (25.0-35.0); MCHC 30.8 g/dL (31.0-37.0); MCV 116.1 fL (80.0-100.0); Monocytes # (A) 0.3 k/uL (0-1.0); Monocytes % (A) 5 %; Neutrophils # (A) 4.1 k/uL (1.3-7.7); Neutrophils % (A) 73 %; Platelet Count 178 k/uL (150-450); RBC 1.91 m/uL (4.30-5.90); RDW 16.4 % (11.5-15.5); WBC 5.5 k/uL (3.8-10.6)
[2017-04-06 05:59] LABS: Macrocytosis Marked
[2017-04-06 06:02] LABS: HGB 6.8 gm/dL (13.0-17.5)
[2017-04-06 06:14] LABS: Calcium 9.6 mg/dL (8.4-10.2); Potassium 4.3 mmol/L (3.5-5.1)
[2017-04-06] MEDS: traMADol 50 MG TAB PO PRN (09:31)
[2017-04-06] MEDS: FINASTERIDE 5 MG TAB PO SCH (09:34)
[2017-04-06] MEDS: PANTOPRAZOLE 40 MG/10 ML VIAL IV SCH (09:52)
[2017-04-06] MEDS: HEPARIN SOD,PORK IN 0.45% NACL 25,000 UNIT in 0.45% NACL 1 500ML.BAG IV SCH (11:13)
[2017-04-06] MEDS: THIAMINE 100 MG TAB PO SCH (11:20)
[2017-04-06] MEDS: SODIUM CHLORIDE 0.45% 1,000 ML IV SCH ×2 (11:20→19:48)
[2017-04-06] MEDS: SODIUM BICARBONATE TAB 650 MG TAB PO SCH ×2 (11:20→19:43)
--- NOTE | 2017-04-06 11:21 | P.PN ---
Subjective Patient is seen in follow-up for acute kidney injury. Creatinine in October 2013 was 0.85. This admission it has been stable in the range of 2.6-3. Stable at 2.8 today. Patient was noted to be severely hypercalcemic with calcium level greater than 20. He was maintained on calcitonin which was discontinued . Calcium level is down to 9.6 this morning. He is currently maintained on half normal saline at 100 mL an hour. He is awake and alert today but still quite lethargic overall. He is now on a dysphagia diet. He is nonoliguric. Patient was also noted to be in atrial fibrillation on April 03 and also became quite bradycardic at times. He is off Cardizem drip. Considering hospice. Vital signs are stable. General: The patient appeared well nourished and normally developed. HEENT: Head exam is unremarkable. Neck is without jugular venous distension. LUNGS: Lungs are clear to auscultation and percussion. Breath sounds decreased. HEART: Rate and Rhythm are regular. First and second heart sounds normal. No murmurs, rubs or gallops. ABDOMEN: Abdominal exam reveals normal bowel sounds. Non-tender and non- distended. No evidence of peritonitis. EXTREMITITES: No clubbing, cyanosis, or edema. Objective - Vital Signs Vital signs: Vital Signs Temp 97.7 F 04/06/17 07:50 Pulse 145 H 04/06/17 07:57 Resp 26 H 04/06/17 07:57 BP 151/96 04/06/17 07:50 Pulse Ox 95 04/06/17 07:50 Intake & Output 04/05/17 04/06/17 04/06/17 18:59 06:59 18:59 Intake Total 573.365 075.529 9950 Output Total 840 Balance 573.365 965.226 160 Weight 61 kg Intake: Intake, IV Titration 373.365 845.226 900 Amount Heparin Sod,Pork in 0.45% 373.365 345.226 NaCl 25,000 unit In 0.45 % NaCl 1 500ml.bag @ 8 UNITS/KG/HR 14.97 mls/hr IV .Q24H [facility] Rx#: [id number] Sodium Chloride 0.45% 1, 500 900 000 ml @ 100 mls/hr IV . Q10H [facility] Rx#:[id number] Oral 200 120 100 Output: Urine 840 Other: Voiding Method Diaper Diaper Diaper Incontinent Incontinent # Voids 2 2 2 - Labs CBC & Chem 7: 04/06/17 05:40 04/06/17 05:40 Labs: Abnormal Lab Results - Last 24 Hours (Table) 04/01/17 04/06/17 04/06/17 Range/Units 19:25 05:40 05:40 RBC 1.91 L (4.30-5.90) m/uL Hgb 6.8 L* (13.0-17.5) gm/dL Hct 22.2 L (39.0-53.0) % MCV 116.1 H (80.0-100.0) fL MCH 35.7 H (25.0-35.0) pg MCHC 30.8 L (31.0-37.0) g/dL RDW 16.4 H (11.5-15.5) % Lymphocytes # 0.9 L (1.0-4.8) k/uL APTT (22.0-30.0) sec Chloride 110 H (98-107) mmol/L Carbon Dioxide 20 L (22-30) mmol/L BUN 50 H (9-20) mg/dL Creatinine 2.81 H (0.66-1.25) mg/dL Albumin (PEP) 3.63 L (3.80-4.90) g/dL Beta Globulins 4.74 H (0.60-1.30) g/dL Gamma Globulins 0.46 L (0.70-1.50) g/dL Crossmatch 04/06/17 04/06/17 Range/Units 05:40 06:33 RBC (4.30-5.90) m/uL Hgb (13.0-17.5) gm/dL Hct (39.0-53.0) % MCV (80.0-100.0) fL MCH (25.0-35.0) pg MCHC (31.0-37.0) g/dL RDW (11.5-15.5) % Lymphocytes # (1.0-4.8) k/uL APTT 45.3 H (22.0-30.0) sec Chloride (98-107) mmol/L Carbon Dioxide (22-30) mmol/L BUN (9-20) mg/dL Creatinine (0.66-1.25) mg/dL Albumin (PEP) (3.80-4.90) g/dL Beta Globulins (0.60-1.30) g/dL Gamma Globulins (0.70-1.50) g/dL Crossmatch See Detail Microbiology - Last 24 Hours (Table) 04/05/17 11:30 Urine Culture - Preliminary Urine,Catheterized Assessment and Plan Plan: Assessment: #1. Nonoliguric acute kidney injury secondary to ATN secondary to hypercalcemia and hemodynamic instability. Creatinine elevated at 3.1 yest - down to 2.8 toady. No evidence of hydronephrosis noted on renal ultrasound. #2. Hypercalcemia likely related to underlying malignancy. I don't see any calcium or vitamin D supplements and his home medications. PTH on the lower side. Vitamin D level 33.8. 1,25 D3 level 11. [place] light chains noted to be elevated at 4.57. Immunofixation positive as well. CHICO level 8. #3. Hypokalemia from renal potassium wasting. Magnesium also little bit on the lower side. Improved post replacement. #4. History of hypertension. Currently controlled. #5. Hypernatremia secondary to lack of oral water intake. Improved. #6. Mild hypophosphatemia due to poor nutritional status. Status post replacement. Plan: Continue half-normal saline at 100 mL an hour. Discontinued potassium supplementation. Status post 60 mg IV pamidronate on April 01. Discontinued calcitonin on April 05. Avoid nephrotoxic agents and hypotensive episodes. Patient has decided to proceed with hospice and does not want any invasive procedures done including bone marrow biopsy.
--- NOTE | 2017-04-06 11:43 | P.PN ---
Subjective Progress Note Date: 04/06/17 Principal diagnosis: Acute hypercalcemia This is a 82-year-old male patient with known history of coronary artery disease with previous PCI, chronic atrial fibrillation, hypertension and hyperlipidemia, and osteoarthritis, who came into the emergency department very lethargic and weak. Apparently the patient was becoming progressively more weak and dizzy and he had a fall that occurred around 4 AM when the patient was trying to go to the bathroom. Patient states that he lost balance and he fell. He denies having any significant injuries. No head injury. He stated that he has chronic back pain and the back and has essentially been unchanged. The patient was brought into the hospital and he was seen and burst department he was found to have significant abnormalities in his blood work and electrolytes. Specifically the patient was found to be anemic with a hemoglobin of 9.8, the patient was found to have a PTT of 200 knowing that he is on oral anticoagulation with Eliquis, he was found to be hypokalemic with a potassium level of 2.2, he was an acute kidney injury with a creatinine of 3.0, his serum calcium level was 20.3 with an ionized calcium of 10.2 and a phosphorus level of 2.6 and a magnesium 1.8 and an alkaline phosphatase of 84 with a CPK of 4399 and troponin was 0.247. The patient's total serum protein was 10.4 and albumin was 4.0. Note that the patient was being investigated for back pain and had undergone a CAT scan of the lumbosacral spine on 02/22/2017 and he was found to have multi leveled compressive deformities including the greatest at the level of L3 with approximately 50% loss of the mid vertebral body height. There was also compression at the level of L4 and endplates of L2 and superior endplates of L1 and also poses was also present and possibility of underlying lytic lesions were also included and suspected. There is also evidence of spinal canal stenosis at the level of L4-L5. A bone scan that was done on 03/04/2017 showed demineralization that was diffuse without any evidence of an acute or subacute fractures. [facility]. He was given Comins for pain control which made him more confused and lethargic. At this point in time he is on IV fluids. He is receiving 200 mL an hour of normal saline along with potassium replacement. The patient is also on alendronate 60 mg IV. On 04/02/2017 I'm seeing this patient for a follow-up. As mentioned yesterday the patient was Hospital as for an acute hypercalcemia and electrode disturbance and acute kidney injury. The patient was resuscitated aggressively with IV fluids and he was receiving 200 mL of normal saline hourly basis. He is producing adequate amount of urine output which is estimated to be more than 70 mL an hourly basis. The patient also received IV pamidronate and the patient received calcitonin. There is a modest improvement in the calcium level which is down to 18.4. Creatinine is also unchanged at 2.8. Patient is still lethargic, confused, and somewhat debilitated. Skeletal series were obtained and the patient was found to have generalized osteopenia marked degenerative spine changes at all levels and mild L3 vertebral body compression fracture. The myeloma workup was initiated and the workup is still pending. PTH levels are also pending. Ultrasound the kidneys showed no evidence of hydronephrosis. Note that urinalysis is also failed to show any significant proteinuria. Nephrology is on the case. Awaiting the myeloma workup. Awaiting an oncology consultation. On 04/03/2017, I'm seeing this patient for a follow-up. Slightly more awake and alert compared to yesterday. Calcium level has been gradually improving is down to 15. The patient remains on normal state rate of 200 mL an hour. This morning he was switched to half-normal saline knowing that his sodium level has been quite elevated at 150. Most recent calcium level is at 15.4. Potassium has been also replace is up to 3.8. Hemoglobin is at 9.0 minutes currently stable. The patient is resting comfortably in bed. When he wakes up he complains of pain throughout his body. He is still on that investigation. Serum protein electrophoresis and immunofixation is still pending for now. Oncology developed this patient and the patient is being also considered for a bone marrow biopsy with the next 24-48 hours. He is afebrile. He is having rapid ventricular response regarding his atrial fibrillation and his heart rate is ranging between 108 and 1:30. He is producing adequate amount of urine output. Pulse ox 98% on room air. Patient was reevaluated today on 04/04/2017, patient is confused, however his calcium has responded quite well over the last 24 hours, it is 12.8 today. BUN remains elevated at 50 creatinine is about the same at 2.80 hemoglobin is 8.1, platelets are normal. WBC count is 8.1. Patient received for his elevated calcium hydration, pamidronate, calcitonin. Serum protein electrophoresis is pending. The rest of the multiple myeloma workup is pending. Urine protein electrophoresis is also pending. Patient already received biphosphonate, and may or may not require bone marrow biopsy. Patient had to be placed on Cardizem for A. fib with RVR last night, remains on Cardizem, and that is being addressed by cardiology on the case. Patient seems to be hemodynamically stable. Has good urine output. Nephrology is still following. On 04/05/2017 patient seen in follow-up on selective care unit. He is very lethargic, he was placed back on BiPAP after lunch. He is barely arousable to tactile stimulation. He does not stay awake, drifts back to sleep. We'll obtain a blood gas, and a portable chest x-ray now. Per nursing staff yesterday his Cardizem drip was discontinued, subsequently in the evening patient was noted to have long pauses, up to 9.4 seconds in duration, he was placed on BiPAP, in the evening. Currently remains in sinus rhythm with a controlled ventricular response. His calcium level today is 10.8, nephrology has the patient on calcitonin every 12 hours, patient had been maintained on half-normal saline at 200 ML per hour, which was decreased down to 100 ML per hour. Patient had received Pamidronate per nephrology. Patient went for parathyroid scan this morning, the second half of the test was supposed to be completed this afternoon. Creatinine is elevated at 3.1, patient is nonoliguric. Lung sounds are diminished, a few bibasilar rales. Medical oncology is following regarding possibility of underlying malignancy, and workup for possible multiple myeloma is in progress. Patient is a CODE STATUS of DO NOT RESUSCITATE. When patient was seen again after his parathyroid scan, he was more awake, off the BiPAP, in no respiratory distress. He did refuse his chest x-ray. The blood gas was discontinued due to patient's improvement in aeration and improved respiratory status. On 04/06/2017 patient seen in follow-up. He is awake, alert, resting in bed, in no acute distress. Last night the patient and his multiple family members had a lengthy discussion with the medical oncology and received the news of strong suspicion for multiple myeloma. His treatment options were discussed with him. After thinking over his options patient had decided to enroll in hospice. This morning he is not in any respiratory distress. His lung sounds are diminished with bilateral lower bases crackles. No new episodes of apnea or pauses. He is actually in A. fib with a rate between 100 220. Cardiology is following. Patient remains afebrile, currently on 2 L per nasal cannula with O2 sat 95%. Hemoglobin was down to 6.8, patient has refused blood transfusions. At this point he does not want any bone marrow biopsies, blood transfusions or any invasive aggressive treatment. Objective - Vital Signs Vital signs: Vital Signs Temp 97.7 F 04/06/17 07:50 Pulse 145 H 04/06/17 07:57 Resp 26 H 04/06/17 07:57 BP 151/96 04/06/17 07:50 Pulse Ox 95 04/06/17 07:50 Intake & Output 04/05/17 04/06/17 04/06/17 18:59 06:59 18:59 Intake Total 573.365 372.202 9007 Output Total 840 Balance 573.365 965.226 160 Weight 61 kg Intake: Intake, IV Titration 373.365 845.226 900 Amount Heparin Sod,Pork in 0.45% 373.365 345.226 NaCl 25,000 unit In 0.45 % NaCl 1 500ml.bag @ 8 UNITS/KG/HR 14.97 mls/hr IV .Q24H [facility] Rx#: [id number] Sodium Chloride 0.45% 1, 500 900 000 ml @ 100 mls/hr IV . Q10H [facility] Rx#:[id number] Oral 200 120 100 Output: Urine 840 Other: Voiding Method Diaper Diaper Diaper Incontinent Incontinent # Voids 2 2 2 - Exam Physical Exam: Revealed a 82-year-old white male, awake, in no distress, resting comfortably in bed, currently off BiPAP support, on 2 L per nasal cannula Head: Atraumatic, normocephalic, EENT:[Neck is supple.] [No neck masses.] [No thyromegaly.] [No JVD.]. Moist mucous membranes. PERRLA, EOMI. Chest: [Lung sounds are diminished, with bibasilar rales. Decreased air entry bilaterally] Cardiac Exam: [Normal S1 and S2, no S3 gallop, no murmur.] Abdomen: [Obese, Soft, nontender, no megaly, no rebound, no guarding, normal bowel sounds.] Extremities: [No clubbing, no edema, no cyanosis.] Good pulses bilaterally. Neurological Exam: Confused, otherwise [No focal neurologic deficit. Psychiatric: Blunted affect, awake, alert, oriented times 3 [place] skeletal: Normal range of motion, no deformities. - Labs CBC & Chem 7: 04/06/17 05:40 04/06/17 05:40 Labs: Abnormal Lab Results - Last 24 Hours (Table) 04/01/17 04/06/17 04/06/17 Range/Units 19:25 05:40 05:40 RBC 1.91 L (4.30-5.90) m/uL Hgb 6.8 L* (13.0-17.5) gm/dL Hct 22.2 L (39.0-53.0) % MCV 116.1 H (80.0-100.0) fL MCH 35.7 H (25.0-35.0) pg MCHC 30.8 L (31.0-37.0) g/dL RDW 16.4 H (11.5-15.5) % Lymphocytes # 0.9 L (1.0-4.8) k/uL APTT (22.0-30.0) sec Chloride 110 H (98-107) mmol/L Carbon Dioxide 20 L (22-30) mmol/L BUN 50 H (9-20) mg/dL Creatinine 2.81 H (0.66-1.25) mg/dL Albumin (PEP) 3.63 L (3.80-4.90) g/dL Beta Globulins 4.74 H (0.60-1.30) g/dL Gamma Globulins 0.46 L (0.70-1.50) g/dL Crossmatch 04/06/17 04/06/17 Range/Units 05:40 06:33 RBC (4.30-5.90) m/uL Hgb (13.0-17.5) gm/dL Hct (39.0-53.0) % MCV (80.0-100.0) fL MCH (25.0-35.0) pg MCHC (31.0-37.0) g/dL RDW (11.5-15.5) % Lymphocytes # (1.0-4.8) k/uL APTT 45.3 H (22.0-30.0) sec Chloride (98-107) mmol/L Carbon Dioxide (22-30) mmol/L BUN (9-20) mg/dL Creatinine (0.66-1.25) mg/dL Albumin (PEP) (3.80-4.90) g/dL Beta Globulins (0.60-1.30) g/dL Gamma Globulins (0.70-1.50) g/dL Crossmatch See Detail Microbiology - Last 24 Hours (Table) 04/05/17 11:30 Urine Culture - Preliminary Urine,Catheterized Assessment and Plan Plan: Assessment: 1 acute hypercalcemia with a clinical presentation which is very highly suspicious for multiple myeloma. Workup for multiple myeloma is in progress, in the meantime the patient is receiving treatment for his hypercalcemia, and seems to be responding quite well to treatment. Protein electrophoresis, immunofixation results are highly suspicious for all pertinent multiple myeloma. Medical oncology is following. 2 change in mental status secondary to above, improved. The patient presented with severe dehydration and severe electrode disturbance with hypercalcemia and hypokalemia and addition to a mild component of rhabdomyolysis 3 long pauses up to 9.4 seconds on 04/05/2017, Cardizem drip is on hold. Patient was placed back on BiPAP, patient's bradycardia arrhythmia is most likely related to his apnea. Cardiology following. 3 generalized weakness and fall secondary to above 4 acute rhabdomyolysis secondary to above 5 acute hypokalemia, replaced 6 compression fracture of the lumbar spine at the level of L3-L4 and L5 along with possibility of lytic lesions and the patient has extensive demineralization of the bones and lumbar spine 7 chronic back pain 8 coronary artery disease 9 chronic atrial fibrillation 10 acute coagulopathy probably related to varicose toxicity. The patient does not have any signs of bleeding 11 acute kidney injury/kidney failure. Rule out myeloma kidney. Rule out prerenal factors secondary to dehydration 12 BPH 13 diverticular disease with benign colonic polyps and hemorrhoids 14 diffuse osteopenia 15 acute atrial fibrillation with RVR, presently on Cardizem, being addressed by cardiology. Recommendation: Patient is awake, alert, had a lengthy discussion with his family and medical oncology regarding the workup highly suspicious for multiple myeloma. He has refused any invasive aggressive treatments, would like to proceed with hospice enrollment, his refused blood transfusion and bone marrow biopsy. From pulmonary standpoint he hasn't had any further episodes of apnea or respiratory difficulty. He is off the BiPAP support, on 2 L per nasal cannula. Hospice roofing sales representative his expected to meet with the patient and his family today. At this time we will sign off, thank you for this consultation. I performed a history & physical examination of the patient and discussed their management with my nurse practitioner, Mary Acuna. I reviewed the nurse practitioner's note and agree with the documented findings and plan of care. Lung sounds are diminished with bibasilar rales. The findings and the impression was discussed with the patient. I attest to the documentation by the nurse practitioner. Time with Patient: Less than 30
--- NOTE | 2017-04-06 11:55 | P.PN ---
Subjective Progress Note Date: 04/06/17 Principal diagnosis: Fall This is an 82-year-old gentleman who was initially brought to the hospital after experiencing a fall. He had significant abnormalities in his electrolytes with his potassium being 2.2, and his calcium level 20.2. His overall findings are not suggestive of acute coronary syndrome. Patient is presently in a normal sinus rhythm with a controlled ventricular response. He is noted on the monitor to be having long pauses of up to 9.4 seconds through the night last night. BiPAP was applied, he has had 2 brief pauses since the BiPAP was applied and currently is not having any positives, his heart rate is in the 80s. White blood cell count this morning 6.1, hemoglobin 7.3, sodium 140 , potassium 4.4, BUN 55, creatinine 3.1. Calcium 10.8. Patient was seen and examined this morning, he just returned from having a parathyroid scan performed. He is still quite groggy, denies any dizziness or lightheadedness. Blood pressure 133/68 with a heart rate in the 80s. 04/06/2017 Patient seen and examined this morning, continues to be in atrial fibrillation, no further episodes of pauses were noted on the monitor. Patient does not wish to proceed with any further therapy or procedures, he wishes to discuss this further with his on arrival and wants to comfort measures only. Blood pressure this morning 150/90, heart rate 120s to 130s. We will discontinue the IV heparin. We will resume the patient's home dose of beta amber 12-1/2 mg twice a day. Objective - Vital Signs Vital signs: Vital Signs Temp 97.7 F 04/06/17 07:50 Pulse 145 H 04/06/17 07:57 Resp 26 H 04/06/17 07:57 BP 151/96 04/06/17 07:50 Pulse Ox 95 04/06/17 07:50 Intake & Output 04/05/17 04/06/17 04/06/17 18:59 06:59 18:59 Intake Total 573.365 969.430 1916 Output Total 840 Balance 573.365 965.226 160 Weight 61 kg Intake: Intake, IV Titration 373.365 845.226 900 Amount Heparin Sod,Pork in 0.45% 373.365 345.226 NaCl 25,000 unit In 0.45 % NaCl 1 500ml.bag @ 8 UNITS/KG/HR 14.97 mls/hr IV .Q24H [facility] Rx#: [id number] Sodium Chloride 0.45% 1, 500 900 000 ml @ 100 mls/hr IV . Q10H [facility] Rx#:[id number] Oral 200 120 100 Output: Urine 840 Other: Voiding Method Diaper Diaper Diaper Incontinent Incontinent # Voids 2 2 2 - Exam PHYSICAL EXAMINATION: 82-year-old gentleman, slightly lethargic this morning. HEENT: Head is atraumatic, normocephalic. Pupils equal, round. Neck is supple. There is no elevated jugular venous pressure. HEART EXAMINATION: S1 and S2 irregularly irregular CHEST EXAMINATION: Lungs are clear to auscultation and precussion. No chest wall tenderness is noted on palpation or with deep breathing. BiPAP currently on ABDOMEN: Soft, nontender. Bowel sounds are heard. No organomegaly noted. EXTREMITIES: 2+ peripheral pulses with no evidence of peripheral edema and no calf tenderness noted. NEUROLOGIC patient is awake, alert and oriented -3. . - Labs CBC & Chem 7: 04/06/17 05:40 04/06/17 05:40 Labs: Abnormal Lab Results - Last 24 Hours (Table) 04/06/17 04/06/17 04/06/17 Range/Units 05:40 05:40 05:40 RBC 1.91 L (4.30-5.90) m/uL Hgb 6.8 L* (13.0-17.5) gm/dL Hct 22.2 L (39.0-53.0) % MCV 116.1 H (80.0-100.0) fL MCH 35.7 H (25.0-35.0) pg MCHC 30.8 L (31.0-37.0) g/dL RDW 16.4 H (11.5-15.5) % Lymphocytes # 0.9 L (1.0-4.8) k/uL APTT 45.3 H (22.0-30.0) sec Chloride 110 H (98-107) mmol/L Carbon Dioxide 20 L (22-30) mmol/L BUN 50 H (9-20) mg/dL Creatinine 2.81 H (0.66-1.25) mg/dL Crossmatch 04/06/17 Range/Units 06:33 RBC (4.30-5.90) m/uL Hgb (13.0-17.5) gm/dL Hct (39.0-53.0) % MCV (80.0-100.0) fL MCH (25.0-35.0) pg MCHC (31.0-37.0) g/dL RDW (11.5-15.5) % Lymphocytes # (1.0-4.8) k/uL APTT (22.0-30.0) sec Chloride (98-107) mmol/L Carbon Dioxide (22-30) mmol/L BUN (9-20) mg/dL Creatinine (0.66-1.25) mg/dL Crossmatch See Detail Microbiology - Last 24 Hours (Table) 04/05/17 11:30 Urine Culture - Preliminary Urine,Catheterized Assessment and Plan Plan: Assessment and plan #1 acute hypercalcemia with clinical presentation highly suspicious for multiple myeloma, workup for multiple myeloma is in progress. #2 mental status changes, likely secondary to above. #3 generalized weakness and fall #4 chronic persistent atrial fibrillation with evidence of a long pauses, seemed to be improved with BiPAP. #5 compression fracture of the lumbar spine #6 acute on Uriel a kidney injury Plan Patient's heart rate this morning is up in the 130s, we will resume Lopressor 12 -1/2 mg by mouth twice a day. Patient's wishes are not to proceed with any further therapy or procedures, he wishes to be made comfort measures only, this will be discussed further when his arrives. We will follow the patient with you now on an as-needed basis only, least on hesitate to call with any questions DNP note has been reviewed, I agree with a documented findings and plan of care. Patient was seen and examined.
[2017-04-06 13:42] VITALS: BMI 19.8
--- NOTE | 2017-04-06 15:36 | NM ---
EXAMINATION TYPE: NM parathyroid w/spect DATE OF EXAM: 04/05/2017 COMPARISON: NONE HISTORY: Hypercalcemia per order. History of multiple myeloma. TECHNIQUE: Following administration of 25.3 mCi Tc99m Sestamibi. Anterior projection images of the neck and ches t were obtained 10 minutes and 3 hours post injection. SPECT images of the neck and chest were obtai coy and reconstructed in three axes. FINDINGS: Thyroid tracer washout: Poor washout at level of thyroid glands bilaterally. Parathyroid uptake: No obvious area of increased uptake to suggest parathyroid adenoma. Normal uptake: There is physiological tracer uptake in the salivary glands. Artifact on delayed image s of uncertain etiology noted. IMPRESSION: Suboptimal study without convincing scintigraphic evidence for mediastinal parathyroid ad enoma. Consider CT correlation.
--- NOTE | 2017-04-06 18:30 | P.PN ---
Progress Note - Text Progress Note Date: 04/06/17 DATE OF SERVICE: 04/06/2017 PRESENTING COMPLAINT: Fall HISTORY OF PRESENT ILLNESS: 82-year-old male who sustained a fall in the bathroom at all 4 AM presented to the emergency department for further evaluation. Patient was confused, had multiple laboratory abnormalities, primarily creatinine kinase 4399, potassium 2.7, creatinine of 2.81 and calcium at 20.8. Admitted for further evaluation and treatment of these abnormalities as well as back pain. INTERVAL HISTORY: 04/06/2017: Lying in bed on nasal cannula appears comfortable breathing easily. Remains in atrial fibrillation with RVR on the monitor rate in the 130s to 140s. Hemoglobin dropped to 6.7, tentatively plan for a bone marrow biopsy. Continue to await for multiple myeloma workup to be completed with medical oncology. At this time patient is currently refusing all aggressive and or invasive treatments as well as blood transfusion. Would like to engage in discussion with hospice and determine those options. Appetite remains low, encourage patient to drink protein shakes, last BM 04/05/2017. Has not really been out of bed since his hospitalization began. 04/05/2017: Lying in bed currently on the BiPAP, much more easy to arouse today. Remains in atrial fibrillation, rate uncontrolled in the low 100s. Patient's mentation improving able to participate in a swallow evaluation. Diet advanced. Kidney function is improving albeit slowly, had dialysis yesterday and is scheduled again for today. IV fluids reduced. Await multiple myeloma workup lab results , scheduled for a parathyroid nuclear scan today. Tolerating his diet, currently primarily bedbound, last BM 04/03/2017. 04/04/2017: Lying in bed appears lethargic is arousable. Answers some simple straightforward questions.continues to have difficulty swallowing and remains somewhat lethargic to perform bedside swallow. Speech will evaluate tomorrow. Calcium improving,calcitonin continues. IV fluids continue at 200 mL an hour, has had some episodes of atrial fibrillation and has been initiated on a Cardizem drip.remains nothing by mouth await swallow evaluation.last [email or web address]. 04/03/2017: Lying in bed somewhat lethargic has difficulty recognizing his . Aggressive fluid resuscitation continues with half normal saline at 200 mL an hour. Had difficulty swallowing his pills was made nothing by mouth, pending swallow evaluation. Status post pamidronate will take 3-4 days before recognizing its peak effect. Calcitonin 6 international units per kilogram every 8 hours IM, 20 mmol of K-Phos IV. Await studies for multiple myeloma. 04/02/2017 Lying in bed, somewhat lethargic, aggressive fluid resuscitation continues, received calcitonin, and pamidronate with very small amount of improvement in the calcium level. Creatinine is unchanged 2.8. Skeletal series revealed generalized osteopenia marked degenerative spine changes at all levels and a mild L3 vertebral body compression fracture. Multiple myeloma workup is pending as are parathyroid hormone levels. Ultrasound of the kidneys show no evidence of hydronephrosis. Await additional input from oncology. Appetite is poor, patient is not eating much of any meals. at the bedside states that this is how it's been for about the past 30 days. Last BM prior to admission. REVIEW OF SYSTEMS: Done for constitutional ,cardiovascular, GI, pulmonary with relevant findings as above. CURRENT MEDICATIONS Hazel, Dulcolax, Cardura, Duragesic patch,heparin, hydralazine, lidocaine patch , Lopressor, Protonix, thiamine, Ultram. PHYSICAL EXAM VITAL SIGNS: Temperature 97.7, pulse 145, respiratory rate 26, blood pressure 151/96, oxygen saturation 95% on 2 L. GENERAL APPEARANCE: Lying in bed, more awake today on nasal cannula able to make appropriate conversation. HENT: Normocephalic, JVD not raised. Mass not palpable. Oral cavity dry, external appearance of ears and nose normal. EYES:Pupils equal. Conjunctiva normal. RESPIRATORY: Respiratory effort increased. Lungs diminished to auscultation. CARDIOVASCULAR: Irregular rhythm . No edema. ABDOMEN: Soft. Liver and spleen not palpable. No tenderness. No mass palpable. PSYCHIATRY: Alert and oriented 3, mood and affect normal, able to answer questions appropriately. INVESTIGATIONS: LABS: Hemoglobin 6.8, chloride 110, BUN 50, creatinine 2.81, free KappaLight chains 4.57, free lambda LC 1.14, any screen negative IgA kappa paraprotein identified. IgA kappa Bence-Hoffman protein identified. Hepatitis A nonreactive Hepatitis B nonreactive hepatitis B core IgM nonreactive Hepatitis C IgG nonreactive ASSESSMENT: -Acute kidney injury severe possibly due to acute tubular necrosis, improving -Acute severe hypercalcemia cause unclear with multiple myeloma high on the differential, await additional input from hematology, normalized -Acute metabolic encephalopathy multifactorial including renal failure, hypercalcemia, hypokalemia, improving -Mild hypophosphatemia secondary to poor nutritional intake, corrected -Medical debility, multifactorial -Acute hypokalemia secondary to decreased oral intake, corrected -Compression fracture of the lumbar spine at the level of L3-L4 and L5 along with possibility of lytic lesions, extensive demineralization of bones and lumbar spine. -Chronic low back pain from compression fractures of lumbar spine at L3, L4, L5 -Coronary artery disease with prior history of stent -Persistent atrial fibrillation -Essential hypertension -Benign prostatic hypertrophy -Hypernatremia, likely from free water deficit corrected PLAN: Extensive discussion had by patient with family and wishes to be made comfort measures only. Currently refusing blood transfusion and bone marrow biopsy and wishes to have no further invasive procedures or aggressive treatments. Hospice field representatives director to see patient and family to discuss options. Medical oncology notified of patient's wishes. Discussion had with patient family they are in agreement, We will continue to follow very closely. [employer] statement: Patient was seen and examined by nurse practitioner Sydney García and all elements of the case discussed with attending Dr. Newsome
[2017-04-06] MEDS: LIDOCAINE 5% PATCH TOPICAL SCH (19:08)
[2017-04-06] MEDS: DOXAZOSIN 4 MG TAB PO SCH (19:43)
[2017-04-06] MEDS: METOPROLOL TARTRATE 12.5 MG TAB PO SCH (19:44)
[2017-04-07] MEDS: SODIUM CHLORIDE 0.45% 1,000 ML IV SCH (04:52)
[2017-04-07 06:25] LABS: Basophils % (A) 0 %; Eosinophils # (A) 0.1 k/uL (0-0.7); Eosinophils % (A) 2 %; HCT 21.6 % (39.0-53.0); Lymphocytes # (A) 0.8 k/uL (1.0-4.8); Lymphocytes % (A) 12 %; MCH 35.2 pg (25.0-35.0); MCHC 31.8 g/dL (31.0-37.0); Macrocytosis Marked; Mean Platelet Volume 7.5; Monocytes # (A) 0.4 k/uL (0-1.0); Monocytes % (A) 6 %; Neutrophils # (A) 5.3 k/uL (1.3-7.7); Neutrophils % (A) 79 %; Platelet Count 196 k/uL (150-450); RBC 1.95 m/uL (4.30-5.90); RDW 15.8 % (11.5-15.5); WBC 6.7 k/uL (3.8-10.6)
[2017-04-07 06:38] LABS: Calcium 8.9 mg/dL (8.4-10.2); Potassium 3.9 mmol/L (3.5-5.1)
[2017-04-07 06:41] LABS: HGB 6.9 gm/dL (13.0-17.5); MCV 110.6 fL (80.0-100.0)
--- NOTE | 2017-04-07 06:56 | PN ---
PROGRESS NOTE DATE OF SERVICE: 04/06/2017 ATTENDING NOTE: The patient was seen and examined by me. Discussed with nurse practitioner, Ms. García. The patient is far more awake today. The patient and the family has taken the decision to proceed with hospice. I did talk to the patient. He is definitely more alert, knows that he is in the hospital, knows the year, knows the month and he does not want to take it anymore. He has taken the decision to proceed with the same. I did talk to patient's son and daughter and they wish to respect the patient's wishes. has been involved. Because the patient's back pain is his issue, I will add a Lidoderm patch and give the patient a fentanyl patch and see how does this go and adjust medication accordingly. In the meantime patient looking to go to the hospice house down in [place]. PHYSICAL EXAMINATION: On examination, lungs are clear. Patient is answering questions appropriately. Able to have a simple conversation. White count 5.5, hemoglobin 6.8. Potassium 4.3. BUN 50, creatinine 2.81. ASSESSMENT: Case strongly suspicious for multiple myeloma, but the patient has decided to proceed with hospice. For pain control, we will add Lidoderm patch and fentanyl patch. Diet to be advanced as tolerated. Did speak to the liaison for [facility]. Looking to transfer the patient when bed is available. In the meantime, will manage the patient's care while here. Total time spent was 45 minutes with over 30 to 35 minutes of discussion. VICKIE / PRISCILLAN: [id number] /
[2017-04-07] MEDS: HEPARIN SOD,PORK IN 0.45% NACL 25,000 UNIT in 0.45% NACL 1 500ML.BAG IV SCH (08:57)
[2017-04-07] MEDS: PANTOPRAZOLE 40 MG/10 ML VIAL IV SCH (08:58)
[2017-04-07] MEDS: SODIUM BICARBONATE TAB 650 MG TAB PO SCH (09:03)
[2017-04-07] MEDS: LIDOCAINE 5% PATCH TOPICAL SCH (09:03)
[2017-04-07] MEDS: FINASTERIDE 5 MG TAB PO SCH (09:03)
[2017-04-07] MEDS: METOPROLOL TARTRATE 12.5 MG TAB PO SCH ×2 (09:03→11:50)
[2017-04-07 10:36] VITALS: BP 132/93; PULSE 121; RESP 14; TEMP 97.8
[2017-04-07] MEDS: THIAMINE 100 MG TAB PO SCH (11:52)
[2017-04-07] MEDS ORDERED: amLODIPine 5 MG TAB PO SCH (15:45)
--- NOTE | 2017-04-07 16:53 | DS ---
DISCHARGE SUMMARY DATE OF ADMISSION: 04/01/17 DATE OF DISCHARGE: 04/07/17. FINAL DIAGNOSES: 1. Acute kidney injury, likely acute tubular necrosis, present admission. 2. Acute severe hypercalcemia, likely from multiple myeloma. 3. Acute metabolic encephalopathy, multifactorial. 4. Secondary hyperparathyroidism secondary to renal failure. 5. Medical debility multifactorial. 6. Hypokalemia. 7. Compression fracture of the lumbar spine at L3, L4, L5, possibly from multiple myeloma. 8. Compression fractures, lumbar spine L3, L4, L5. 9. Coronary artery disease with prior history of stent. 10.Persistent atrial fibrillation. 11.Essential hypertension. 12.Benign prostatic hypertrophy. 13.Hyponatremia from free water deficit. HOSPITAL COURSE: This patient presented with metabolic altered mental status. Severely hypercalcemic. Given IV fluids and pamidronate. The patient's calcium started to come down and actually did come to normal range. The patient's creatinine start was 3 only slightly came down to 2.55. The patient testing was sent out and was more compatible with multiple myeloma with light chain positive. In the meantime patient and the family decided to proceed with hospice. I did talk to him, but the patient was quite clear, so was the family. CONSULTATIONS: 1. Dr. Ramakrishna Ruiz from Cardiology. 2. Dr. Clements from Pulmonary. 3. Dr. Ramey from Hematology Oncology. 4. Dr. Wilder from Nephrology. DISPOSITION: The patient is going under care of [facility] in the hospital. MEDICATIONS: The patient's medications to be finalized. The patient will be under [facility] until bed becomes available at [facility]. MMMARISSAL / PRISCILLAN: [id number] /
[2017-04-07] MEDS ORDERED: cloNIDine HCL 0.1 MG TAB PO SCH (21:00)
[2017-04-07] MEDS ORDERED: METOPROLOL TARTRATE 12.5 MG TAB PO SCH (21:00)
--- NOTE | 2017-05-25 05:43 | DS ---
DISCHARGE SUMMARY ADDENDUM TO DISCHARGE SUMMARY: DATE OF ADMISSION: 04/01/2017 DATE OF DISCHARGE: 04/07/2017 ON EXAMINATION: Lungs are clear. The patient answering questions, lying in bed. CARDIOVASCULAR: First and second sounds normal. MMODL / IJN: [id number] /
== END 2017-04-07 15:00 | disposition hospice, inpatient (51) | DRG 840 ==
LOC: EC 08:49 → 6ICU 11:25 → 6SEL 04-04 13:22
PROVIDERS: ADMIT Hospitalist; ATTEND Hospitalist
PROC: 5A09357 Assistance with Respiratory Ventilation, Less than 24 Consecutive Hours, Continuous Positive Airway Pressure (ICD-10-PCS; principal; 2017-04-05)
DX: C90.00 Multiple myeloma not having achieved remission (principal); G93.41 Metabolic encephalopathy; N17.0 Acute kidney failure with tubular necrosis; E87.0 Hyperosmolality and hypernatremia; E83.39 Other disorders of phosphorus metabolism; E83.52 Hypercalcemia; I48.1 Persistent atrial fibrillation; M48.56XA Collapsed vertebra, not elsewhere classified, lumbar region, initial encounter for fracture; E88.09 Other disorders of plasma-protein metabolism, not elsewhere classified; E86.0 Dehydration; I48.2 Chronic atrial fibrillation; M62.82 Rhabdomyolysis; N25.81 Secondary hyperparathyroidism of renal origin; D53.9 Nutritional anemia, unspecified; D72.829 Elevated white blood cell count, unspecified; E78.5 Hyperlipidemia, unspecified; E87.6 Hypokalemia; G89.29 Other chronic pain; I10 Essential (primary) hypertension; I25.10 Atherosclerotic heart disease of native coronary artery without angina pectoris; K57.30 Diverticulosis of large intestine without perforation or abscess without bleeding; K64.9 Unspecified hemorrhoids; M19.90 Unspecified osteoarthritis, unspecified site; M48.061 Spinal stenosis, lumbar region without neurogenic claudication; M85.89 Other specified disorders of bone density and structure, multiple sites; N40.0 Benign prostatic hyperplasia without lower urinary tract symptoms; R09.02 Hypoxemia; R13.10 Dysphagia, unspecified; I83.90 Asymptomatic varicose veins of unspecified lower extremity; M10.9 Gout, unspecified; R00.1 Bradycardia, unspecified; R06.81 Apnea, not elsewhere classified; R26.9 Unspecified abnormalities of gait and mobility; R32 Unspecified urinary incontinence; R79.1 Abnormal coagulation profile; Z66 Do not resuscitate; Z74.01 Bed confinement status; Z79.01 Long term (current) use of anticoagulants; Z79.899 Other long term (current) drug therapy; Z96.653 Presence of artificial knee joint, bilateral; Z96.641 Presence of right artificial hip joint; Z95.5 Presence of coronary angioplasty implant and graft; Z87.891 Personal history of nicotine dependence; Z88.2 Allergy status to sulfonamides; Z82.49 Family history of ischemic heart disease and other diseases of the circulatory system; W19.XXXA Unspecified fall, initial encounter; Y92.002 Bathroom of unspecified non-institutional (private) residence as the place of occurrence of the external cause
CPT/HCPCS: 36415; 70450; 71045; 72170; 76770; 77075; 78071; 80048; 80053; 80074; 81001; 82164; 82306; 82310; 82330; 82550; 82553; 82570; 82607; 82652; 82728; 82746; 83010; 83519; 83540; 83550; 83615; 83735; 83883; 83970; 84100; 84156; 84165; 84439; 84443; 84481; 84484; 85025; 85045; 85610; 85730; 86038; 86334; 86335; 86850; 86900; 86901; 86920; 87086; 87205; 87502; 93005; 93306; 94660; 96365; 96366; 99291